=== PATIENT | male | born 1935 ===

== ENCOUNTER 2017-04-28 12:03 | Day surgery (SDC) | payer MEDICARE, OTHER ==
[~2017-04-28] VITALS: Ht 177.8 cm; Wt 137.8 kg
[~2017-04-28 12:03] MED LIST: ALLO100 PO; ASPI81CH; ASPI81EC PO; BISA5EC PO; BRIM.15SO; CEFD300 PO; CIPR500 PO; CLON.1 PO; COLC.6; ESOM20; ESOM20 PO; EZET10; FERR325 PO; FINA5 PO; FISH1000 PO; FLUSAL2505; FLUSAL5005 IH; FLUT.05NI; FURO20; FURO20 PO; HUMULIN N SQ; INSLI100I; INSLI100I SUBQ; INSN100I SUBQ; INSUL100I SUBQ; ISOMON60ER; LEVFLO500 PO; LISHYD2025; LISHYD2025 PO; LOPE2C PO; LORA1; METF500; METF500 PO; METO50ER; MULVITMINF PO; NIFE60ER PO; NITR.3SL; NITR.4SL SL; OXYB5 PO; PHENA200 PO; PIOG15; POTA10T; POTA10T PO; ROSU10TA; ROSU10TA PO; SIME80CH; SUCR1 PO; SUCR1SU; TAMS.4ER PO; TIMO.5OPSO BOTHEYES; TIOT18; TIOT18 IH; TRAV.004OP BOTHEYES; XOPENEX HFA
[2017-04-28] MEDS ORDERED: ALLO100 (12:58)
[2017-04-28] MEDS ORDERED: Azor 10-20 MG1 EACH (12:59)
[2017-04-28] MEDS ORDERED: ANORO ELLIPTA1 EACH (13:00)
[2017-04-28] MEDS ORDERED: LINZESS72 MCG (13:01)
[2017-04-28] MEDS ORDERED: METROGEL55 GM (13:03)
[2017-04-28] MEDS ORDERED: ISOD40ER (13:05)
== END 2017-04-28 14:08 | disposition home or self-care (01) ==
LOC: ORSCSDS 12:03
PROVIDERS: Ophthalmology
PROC: 08RK3JZ Replacement of Left Lens with Synthetic Substitute, Percutaneous Approach (ICD-10-PCS; principal; 2017-04-28 13:30)
DX: H25.12 Age-related nuclear cataract, left eye (principal); H21.81 Floppy iris syndrome; I10 Essential (primary) hypertension; I25.10 Atherosclerotic heart disease of native coronary artery without angina pectoris; J44.9 Chronic obstructive pulmonary disease, unspecified; E11.9 Type 2 diabetes mellitus without complications; I25.2 Old myocardial infarction; E66.01 Morbid (severe) obesity due to excess calories; Z68.41 Body mass index [BMI] 40.0-44.9, adult; Z79.4 Long term (current) use of insulin; Z79.899 Other long term (current) drug therapy
CPT/HCPCS: 82947; J2250; J7040; V2632

== ENCOUNTER 2017-05-19 10:38 | Day surgery (SDC) | payer MEDICARE, OTHER ==
[~2017-05-19] VITALS: Ht 177.8 cm; Wt 139.3 kg
[~2017-05-19 10:38] MED LIST changes: +ALLO100; +ANORO ELLIPTA1 EACH; +Azor 10-20 MG1 EACH; +ISOD40ER; +LINZESS72 MCG; +METROGEL55 GM
[2017-05-19] MEDS ORDERED: ANORO ELLIPTA1 EACH INH (11:21)
[2017-05-19] MEDS ORDERED: Calcitriol0.25 MCG PO (11:22)
[2017-05-19] MEDS ORDERED: ENTRESTO 97 MG1 EACH PO (11:23)
[2017-05-19] MEDS ORDERED: Humalog100 UNIT/3 SC (11:24)
[2017-05-19] MEDS ORDERED: LEVA.63IS INH ×2 (11:25→11:30)
[2017-05-19] MEDS ORDERED: METO2.5 PO (11:26)
[2017-05-19] MEDS ORDERED: NITR.6SL SL (11:27)
[2017-05-19] MEDS ORDERED: LEVA.63IS (11:29)
== END 2017-05-19 12:50 | disposition home or self-care (01) ==
LOC: ORSCSDS 10:38
PROVIDERS: Ophthalmology
PROC: 08RJ3JZ Replacement of Right Lens with Synthetic Substitute, Percutaneous Approach (ICD-10-PCS; principal; 2017-05-19 12:00)
DX: H25.11 Age-related nuclear cataract, right eye (principal); H21.81 Floppy iris syndrome; I50.9 Heart failure, unspecified; I25.10 Atherosclerotic heart disease of native coronary artery without angina pectoris; Z87.891 Personal history of nicotine dependence; E66.01 Morbid (severe) obesity due to excess calories; Z68.41 Body mass index [BMI] 40.0-44.9, adult; Z99.81 Dependence on supplemental oxygen; Z79.4 Long term (current) use of insulin; Z79.899 Other long term (current) drug therapy
CPT/HCPCS: 82947; J2250; J3010; V2632

== ENCOUNTER → 2018-07-14 | Outpatient (CLI) | payer MEDICARE, OTHER ==
[~2018-07-14] MED LIST changes: +ANORO ELLIPTA1 EACH INH; +Calcitriol0.25 MCG PO; +ENTRESTO 97 MG1 EACH PO; +Humalog100 UNIT/3 SC; +LEVA.63IS; +LEVA.63IS INH; +METO2.5 PO; +NITR.6SL SL
== END | disposition home or self-care (01) ==
LOC: LAB SHORT 14:01 → LAB 14:01
DX: Z08 Encounter for follow-up examination after completed treatment for malignant neoplasm (principal); Z85.51 Personal history of malignant neoplasm of bladder
CPT/HCPCS: 88108

== ENCOUNTER 2018-11-15 14:40 | Emergency (ER) | payer MEDICARE, OTHER ==
[~2018-11-15] VITALS: Ht 177.8 cm; Wt 136.1 kg
[2018-11-15] MEDS ORDERED: ALLO100 PO (15:23)
[2018-11-15] MEDS ORDERED: ANORO ELLIPTA1 EACH INH (15:23)
[2018-11-15] MEDS ORDERED: CALC.25 PO (15:24)
[2018-11-15] MEDS ORDERED: ENTRESTO 97 MG1 EACH PO (15:24)
[2018-11-15] MEDS ORDERED: DESO.05TL (15:24)
[2018-11-15] MEDS ORDERED: NEBI10 PO (15:24)
[2018-11-15] MEDS ORDERED: FINA5 PO (15:25)
[2018-11-15] MEDS ORDERED: ESOMEPRAZOLE MA40 MG PO (15:25)
[2018-11-15] MEDS ORDERED: Flonase 0.05% N16 GM PO (15:25)
[2018-11-15] MEDS ORDERED: Lasix80 MG PO (15:26)
[2018-11-15] MEDS ORDERED: Humalog100 UNIT/1 (15:26)
[2018-11-15] MEDS ORDERED: Isosorbide Mono60 MG PO (15:27)
[2018-11-15] MEDS ORDERED: LORA1 PO (15:27)
[2018-11-15] MEDS ORDERED: LEVA.63IS ×2 (15:27→15:28)
[2018-11-15] MEDS ORDERED: LINZESS145 MCG PO (15:27)
[2018-11-15] MEDS ORDERED: SUCR1 (15:28)
[2018-11-15] MEDS ORDERED: METROGEL55 GM (15:28)
[2018-11-15] MEDS ORDERED: Flomax0.4 MG PO (15:28)
[2018-11-15] MEDS ORDERED: ROSU10TA PO (15:28)
[2018-11-15] MEDS ORDERED: Aspir 8181 MG PO (15:29)
[2018-11-15 15:38] LABS: BASOPHILS ABSOLUTE AUTO 0.04 K/mm3 (0.00-0.23); BASOPHILS PERCENT AUTO 0 % (0-2); EOSINOPHILS PERCENT AUTO 1 % (0-6); Hematocrit 32.3 % (37.0-53.0); Hemoglobin 10.5 g/dL (13.5-17.5); IMMATURE GRAN PERCENT AUTO 1 % (0-1); LYMPHOCYTES ABSOLUTE AUTO 1.27 K/mm3 (0.84-5.20); LYMPHOCYTES PERCENT AUTO 9 % (21-46); MONOCYTES ABSOLUTE AUTO 0.97 K/mm3 (0.16-1.47); MONOCYTES PERCENT AUTO 7 % (4-13); Mean Corpuscular HGB 32.2 pg (26.0-34.0); Mean Corpuscular HGB Conc 32.5 g/dL (31.5-36.5); Mean Corpuscular Volume 99 fL (80-100); Mean Platelet Volume 10.5 fL (9.1-12.4); NEUTROPHILS ABSOLUTE AUTO 12.15 K/mm3 (1.96-9.15); NEUTROPHILS PERCENT AUTO 82 % (41-73); Platelet Count 249 K/mm3 (150-400); RDW Coefficient Variation 14.8 % (11.7-14.2); RDW Standard Deviation 53.9 fL (35.1-46.3); Red Blood Cell Count 3.26 M/mm3 (4.30-5.90); White Blood Cell Count 14.73 K/mm3 (4.00-11.30)
[2018-11-15 16:00] LABS: Albumin, Blood 2.3 g/dL (3.4-5.0); Albumin/Globulin Ratio 0.6 (0.8-1.8); Bilirubin, Total 0.2 mg/dL (0.1-1.0); Bun/Creatinine Ratio 30.4 (12.0-20.0); Calcium, Blood 8.1 mg/dL (8.5-10.1); Creatinine, Blood 2.47 mg/dL (0.60-1.20); Globulin, Blood 3.8 g/dL (2.2-4.0); Potassium, Blood 3.1 mmol/L (3.5-5.5); Total Protein, Blood 6.1 g/dL (6.4-8.2)
[2018-11-15 16:54] LABS: Magnesium, Blood 1.8 mg/dL (1.6-2.4); Phosphorus, Blood 3.8 mg/dL (2.5-4.9)
[2018-11-15 19:54] LABS: Campylobacter Sp Not Detected (NOT DETECT); Cryptosporidium Not Detected (NOT DETECT); E. Coli O157 Not Detected (NOT DETECT); Enteroaggregative E. coli-EAEC Not Detected (NOT DETECT); Enteropathogenic E. coli-EPEC Not Detected (NOT DETECT); Enterotoxigenic E. coli-ETEC Not Detected (NOT DETECT); Plesiomonas Shigelloides Not Detected (NOT DETECT); Salmonella Sp Not Detected (NOT DETECT); Shiga Toxin-prod E. coli-STEC Not Detected (NOT DETECT); Shigella/Enteroin E. coli-EIEC Not Detected (NOT DETECT); Vibrio Cholerae Not Detected (NOT DETECT); Vibrio Sp Not Detected (NOT DETECT); Yersinia Enterocolitica Not Detected (NOT DETECT)
[2018-11-15 19:55] LABS: Adenovirus F 40/41 Not Detected (NOT DETECT); Astrovirus Not Detected (NOT DETECT); Cyclospora Cayetanensis Not Detected (NOT DETECT); Entamoeba Histolytica Not Detected (NOT DETECT); Giardia Lamblia Not Detected (NOT DETECT); Norovirus GI/GII Not Detected (NOT DETECT); Rotavirus A Not Detected (NOT DETECT); Sapovirus Not Detected (NOT DETECT)
== END 2018-11-15 21:11 | disposition home or self-care (01) ==
LOC: ER 14:40
PROVIDERS: Emergency Medicine
DX: A04.72 Enterocolitis due to Clostridium difficile, not specified as recurrent (principal); J44.9 Chronic obstructive pulmonary disease, unspecified; E87.6 Hypokalemia; Z88.8 Allergy status to other drugs, medicaments and biological substances; Z91.040 Latex allergy status; Z88.1 Allergy status to other antibiotic agents; Z79.899 Other long term (current) drug therapy; Z79.4 Long term (current) use of insulin; Z79.82 Long term (current) use of aspirin; I10 Essential (primary) hypertension; E11.9 Type 2 diabetes mellitus without complications; Z87.891 Personal history of nicotine dependence
CPT/HCPCS: 0097U; 36415; 80053; 83690; 83735; 84100; 85025; 87324; 96360; 96361; 99284-25; J7120

== ENCOUNTER 2018-12-04 11:50 | Inpatient (IN) | payer MEDICARE, OTHER ==
[~2018-12-04] VITALS: Ht 177.8 cm; Wt 137.7 kg
[~2018-12-04 11:50] MED LIST changes: +Aspir 8181 MG PO; +CALC.25 PO; +DESO.05TL; +ESOMEPRAZOLE MA40 MG PO; +Flomax0.4 MG PO; +Flonase 0.05% N16 GM PO; +Humalog100 UNIT/1; +Isosorbide Mono60 MG PO; +LINZESS145 MCG PO; +LORA1 PO; +Lasix80 MG PO; +NEBI10 PO; +SUCR1
[2018-12-04 12:44] LABS: BASOPHILS ABSOLUTE AUTO 0.06 K/mm3 (0.00-0.23); BASOPHILS PERCENT AUTO 1 % (0-2); EOSINOPHILS ABSOLUTE AUTO 0.15 K/mm3 (0.00-0.68); EOSINOPHILS PERCENT AUTO 2 % (0-6); Hematocrit 33.4 % (37.0-53.0); Hemoglobin 10.2 g/dL (13.5-17.5); IMMATURE GRAN ABSOLUTE AUTO 0.05 K/mm3 (0.00-0.10); IMMATURE GRAN PERCENT AUTO 1 % (0-1); LYMPHOCYTES PERCENT AUTO 15 % (21-46); MONOCYTES PERCENT AUTO 7 % (4-13); Mean Corpuscular HGB 32.1 pg (26.0-34.0); Mean Corpuscular HGB Conc 30.5 g/dL (31.5-36.5); Mean Corpuscular Volume 105 fL (80-100); Mean Platelet Volume 9.7 fL (9.1-12.4); NEUTROPHILS ABSOLUTE AUTO 7.78 K/mm3 (1.96-9.15); NEUTROPHILS PERCENT AUTO 76 % (41-73); Platelet Count 265 K/mm3 (150-400); RDW Coefficient Variation 14.5 % (11.7-14.2); RDW Standard Deviation 56.7 fL (35.1-46.3); Red Blood Cell Count 3.18 M/mm3 (4.30-5.90); White Blood Cell Count 10.24 K/mm3 (4.00-11.30)
[2018-12-04 13:02] LABS: Albumin, Blood 2.7 g/dL (3.4-5.0); Albumin/Globulin Ratio 0.6 (0.8-1.8); Bilirubin, Total 0.3 mg/dL (0.1-1.0); Bun/Creatinine Ratio 20.6 (12.0-20.0); Calcium, Blood 8.4 mg/dL (8.5-10.1); Creatinine, Blood 1.7 mg/dL (0.60-1.20); Globulin, Blood 4.5 g/dL (2.2-4.0); Potassium, Blood 3.6 mmol/L (3.5-5.5); Total Protein, Blood 7.2 g/dL (6.4-8.2); Troponin I 0.017 ng/mL (0.000-0.040)
[2018-12-04] MEDS ORDERED: METO2.5 PO (14:38)
[2018-12-04] MEDS ORDERED: QVAR REDIHALE10.6 GM INH (14:47)
--- NOTE | 2018-12-04 18:48 | NUR ---
PT TO ICU FROM THE [facility] [employer] [facility] @ 1845. PT ALERT AND ORIENTED, MONITOR SHOWS NSR WITH BBB AT RATE OF 66, BP 127/52, PT STS CHEST PRESSURE OF /10 COMPAIRED TO 10/24 UPON ADMISSION. RAC IV SL, FLUSHED WITH 10NS, PATENT AND INTACT. TR BAND TO R RADIAL, SCANT AMOUNT OF BLOOD AROUND INSERTION SITE, SOME BRUISING, SITE IS SOFT AND NON-TENDER.
[2018-12-04] MEDS ORDERED: Humulin N100 UNIT/1 (19:00)
--- NOTE | 2018-12-04 19:00 | NUR ---
STENT CARD GIVEN TO
[2018-12-04] MEDS ORDERED: NITR.4SL SL (19:01)
[2018-12-04] MEDS ORDERED: Travatan Z5 ML (19:02)
[2018-12-04] MEDS ORDERED: CYAN500 PO (19:04)
[2018-12-04] MEDS ORDERED: CENTRUM ADULTS1 EACH PO (19:05)
[2018-12-04] MEDS ORDERED: FISH OIL 1,0001 EAC2 PO (19:05)
[2018-12-04] MEDS ORDERED: GUAI600T33 PO (19:06)
--- NOTE | 2018-12-04 19:30 | NUR ---
PATIENT RESTING IN BED C/O FEELING TIRED AND VERBALIZED GENERALIZED ACHING TO "EVERY WHERE" TR BAND IN PLACE TO RIGHT WRIST. SMALL AMT OF BRUISING SEEN UNDER BAND, AREA AROUND BAND SOFT AND PINK NO SWELLING OR OOZING SEEN GOOD CAP REFILL TO FINGERS. ARM BOARD IN PLACE TO HELP REMIND PATIENT TO NOT USE THAT WRIST. PATIENT HAVING AUDIBLE WHEEZING WITH SLIGHT ACTIVITY. PATTERNMAKER METAL BENCH SHOWING PACED RHYTHM. DOCTOR CLIDE IN TO SEE PATIENT, SEE NEW ORDERS. PATIENTS AT BEDSIDE PROVIDING GOOD SUPPORT. CLEAR OP-SITE DRESSING TO RIGHT ELBOW COVERING SKIN TEAR, DUE TO RISK OF FURTHER TEARING OF SKIN DRESSING WILL REMAIN IN PLACE.
--- NOTE | 2018-12-04 20:15 | NUR ---
TR BAND LOWERING PRESSURE ON TR BAND SMALL AMT OF OOZING. SITE AROUND TR BAND SOFT, NO SWELLING SEEN. WILL CONTINUE TO ATTEMPT TO LOWER PRESSURE AND REMOVE TR BAND
[2018-12-04] MEDS ORDERED: DULCOLAX STOOL100 MG PO (22:07)
--- NOTE | 2018-12-05 00:16 | NUR ---
PATIENT C/O FEELING LIKE HE CAN'T GET ENOUGH AIR AND HAVING DISCOMFORT TO MID UPPER ABD. BIPAP IN PLACE WITH 8L BLEED IN, MONITOR SHOWING BIOX 100%. MONITOR CONTINUES TO SHOW 100% PACED RATE 60'S. ATIVAN GIVEN TO HELP PATIENT RELAX. PATIENTS AT BEDSIDE. RIGHT WRIST SOFT NO FURTHER OOZING, ARM BOARD REMAINS IN PLACE.
--- NOTE | 2018-12-05 01:05 | NUR ---
PATIENT SLEEPING WITH BIPAP IN PLACE, AWAKENS TO SLIGHT STIMULI, VERBALIZED FEELING BETTER, FALLING BACK TO SLEEP WHEN UNDISTURBED. RIGHT WRIST SOFT NO SWELLING OR OOZING SEEN.
[2018-12-05 04:01] LABS: BASOPHILS ABSOLUTE AUTO 0.04 K/mm3 (0.00-0.23); BASOPHILS PERCENT AUTO 0 % (0-2); EOSINOPHILS ABSOLUTE AUTO 0.08 K/mm3 (0.00-0.68); EOSINOPHILS PERCENT AUTO 1 % (0-6); Hematocrit 29.8 % (37.0-53.0); Hemoglobin 9.2 g/dL (13.5-17.5); IMMATURE GRAN ABSOLUTE AUTO 0.04 K/mm3 (0.00-0.10); IMMATURE GRAN PERCENT AUTO 0 % (0-1); LYMPHOCYTES ABSOLUTE AUTO 0.98 K/mm3 (0.84-5.20); LYMPHOCYTES PERCENT AUTO 10 % (21-46); MONOCYTES ABSOLUTE AUTO 0.66 K/mm3 (0.16-1.47); MONOCYTES PERCENT AUTO 7 % (4-13); Mean Corpuscular HGB 31.2 pg (26.0-34.0); Mean Corpuscular HGB Conc 30.9 g/dL (31.5-36.5); Mean Corpuscular Volume 101 fL (80-100); Mean Platelet Volume 9.6 fL (9.1-12.4); NEUTROPHILS ABSOLUTE AUTO 7.82 K/mm3 (1.96-9.15); NEUTROPHILS PERCENT AUTO 81 % (41-73); Platelet Count 236 K/mm3 (150-400); RDW Coefficient Variation 14.6 % (11.7-14.2); RDW Standard Deviation 53.6 fL (35.1-46.3); Red Blood Cell Count 2.95 M/mm3 (4.30-5.90); White Blood Cell Count 9.62 K/mm3 (4.00-11.30)
[2018-12-05 04:18] LABS: Bun/Creatinine Ratio 19.9 (12.0-20.0); Creatinine, Blood 1.81 mg/dL (0.60-1.20); Magnesium, Blood 1.4 mg/dL (1.6-2.4); Potassium, Blood 3.6 mmol/L (3.5-5.5)
--- NOTE | 2018-12-05 05:58 | NUR ---
SUMMARY PATIENT SLEEPING OFF AND ON T/O NIGHT WITH BIPAP IN PLACE. NO FURTHER C/O MID UPPER ABD PAIN AFTER ATIVAN PO GIVEN. PATIENT VERBALIZED FEELING BETTER THIS AM. PATIENT CONTINUES TO BECOME SOB WITH AUDIBLE WHEEZES WITH EXERTION, RECOVERING QUICKLY AT REST. RIGHT WRIST SITE REMAINS SOFT WITH DRESSING CD&I, NO FURTHER OOZING SEEN. PATIENT REMAINS IN PACED RHYTHM WITH OCCASIONAL PVC. SEE RHYTHM STRIP SHEET
--- NOTE | 2018-12-05 07:30 | NUR ---
SHIFT ASSESSMENT PT IS UP TO BSC AT THIS TIME. HE APPEARS TO BE IN GOOD SPIRITS. IS IN CHAIR AT BEDSIDE. PT STATES HE FEELS PRETTY GOOD THIS AM. JUST TIRED AND A LITTLE SOB. HE DOES NOT APPEAR TO BE IN ANY RESP DISTRESS WITH REST, BUT UPON TRANSFERING HIM BACK TO CHAIR WITH ASSISTANCE FROM A AUTOMATIC GRINDING MACHINE OPERATOR PT DID BECOME SOB AND HAVE AUDIABLE WHEEZES. RECOVERY IS QUICK HOWEVER. PT STATES HE DOES NOT HAVE ANY PAIN TO SPEAK OF AT THIS TIME. WILL CON'T TO MONITOR AND TREAT INDICATED. PT DOES HAVE STABLE VITALS AT THIS TIME. HRR IS REGULAR WITH 100 PACING AT TIMES, NSR AND ALSO PVC'S. NO CHEST PAIN COMPLAINTS. PT HAS TR BAND TO RIGHT WRIST. OPSITE IN PLACE WITH NO BLOOD ON DRESSING. SITE IS SOFT AND NON TENDER. PT CON'T TO BE FOLLOWING PROTOCOL TO NOT USE RIGHT ARM. PT HAS IV FLUIDS RUNNING ORDERED. WILL CON'T TO MONITOR PT T/O SHIFT AND KEEP SAFE. CALL LIGHT IN REACH AND REMAINS IN ROOM.
--- NOTE | 2018-12-05 08:30 | NUR ---
DR FRANCOIS / DR JOSEPH FRANCOIS WAS CALLED REGARDING PT'S INSULIN REGIMEN AND LASIX ORDER. HE ORDERED TO HAVE HIS INSULIN GIVEN ORDERED. BUT TO CHANGE PT'S DIET TO AN ADA DIET WITH CARB COUNTING AND ADMINISTER INSULIN ORDERED. HE WILL DISCUSS LATER WITH FAMILY INSULIN ORDERS. DISCUSSED WITH HIM PT'S LASIX DOSE AT HOME AND YET NOT ORDERED HERE. TECHNICAL MARKETING CONSULTANT RN ATTEMPTED TO CONTACT DR RUIZ REGARING LASIX ORDERES. DR FRANCOIS ORDERED TO GIVE PT LASIX IV NOW. DR RUIZ THEN CALLED UNIT AND ORDERED TO HAVE THE LASIX STOPPED AND TO GIVE PT A ONE TIME DOSE OF BUMEX GIVEN IV. WILL CON'T TO MONITOR PT'S RESPONSIVNESS TO BUMEX AND REPORT TO .
--- NOTE | 2018-12-05 10:15 | NUR ---
echocardiogram completed
--- NOTE | 2018-12-05 11:30 | NUR ---
UPDATE ASSESSMENT PT CON'T TO BE STABLE WITH NO PAIN COMPLAINTS. HE WAS ABLE TO GET UP TO BSC AND HAVE A LARGE SOFT BM. STATES HE FEELS MUCH BETTER. PT AND OT HAVE BOTH WORKED WITH PT THIS AM. HE WAS ABLE TO EAT SOME OF HIS BREAKFAST WITH NO ISSUES. VITALS CON'T TO BE STABLE. PT CON'T TO HAVE NRS WITH SOME PERIODS OF PACING. CON'T TO BE AT BEDSIDE.
--- NOTE | 2018-12-05 18:06 | NUR ---
1500-ASSUMED CARE OF PT. PT IS ALERT AND ORIENTED. PT IS SITTING ON THE RECLINER CHAIR AT THIS TIME. PT IS NOW PCU STATUS. 1700-PT SEEN BY DR. LAWRENCE. DR. LAWRENCE WAS NOTIFIED REGARDING THE CONSULT. 1806-PT WILL BE TRANSFERED TO ROOM ICU2
--- NOTE | 2018-12-06 05:01 | NUR ---
SHIFT SUMMARY PT RESTING IN ROOM COMFORTABLY AT THIS TIME. PT HAD NO ACUTE CHANGES IN STATUS T/O SHIFT. PT REPORTS DID NOT SLEEP MUCH, OR WELL. SLEPT IN SHORT PERIODS. PT DENIED ANY CP OR SOB T/O NIGHT. RESP EVEN UNLABORED ON CPAP W/ 8L BLEED IN AND SATS >95%. PT WAS ABLE OT MOVE SELF IN BED FOR REPOSITIONING, WITH MINIMAL HELP FROM STAFF. DENIED OTHER NEEDS. ANGIO SITE ON R WRIST REMAINS C/D/I AND WNL. ARM BOARD IN PLACE AND PT WAS CAREFUL TO NOT USE R ARM T/O SHIFT. CALL LIGHT IN REACH. PT SPOUSE AT BEDSIDE AWAITING REGULATORY COORDINATOR VISIT.
[2018-12-06 05:26] LABS: Hematocrit 29.3 % (37.0-53.0)
[2018-12-06 05:45] LABS: Albumin, Blood 2.4 g/dL (3.4-5.0); Anion Gap 8 mmol/L (6-16); Blood Urea Nitrogen 46 mg/dL (8-24); Bun/Creatinine Ratio 13.6 (12.0-20.0); CO2, Blood 29 mmol/L (21-32); Chloride, Blood 97 mmol/L (98-108); Creatinine, Blood 3.39 mg/dL (0.60-1.20); Glomerular Filtration Rate 18 (60-); Glucose, Blood 93 mg/dL (70-99); Magnesium, Blood 1.5 mg/dL (1.6-2.4); Phosphorus, Blood 4.1 mg/dL (2.5-4.9); Potassium, Blood 3.5 mmol/L (3.5-5.5); Sodium, Blood 134 mmol/L (136-145)
--- NOTE | 2018-12-06 11:06 | NUR ---
BEGINNING OF SHIFT Assumed care at 0700. Bedside report received from Karen ALVARADO. Pt on CPAP at 6 LPM. SpO2 90% or greater. Pt OOB several times this AM to sit in chair or use toilet. Dyspnea with exertion, however pt maintains SpO2 90% or greater. Sinus rhythm per monitor, no pacemaker spikes noted. Flutter valve provided. Pt educated on use. Pt demonstrates appropriate use.
--- NOTE | 2018-12-06 15:31 | NUR ---
Initial Visit: Pt is alert, oriented, calm. He reports frequent shortness of breath and is wearing his home CPAP machine. He states that he does not usually wear this during the day, however, he is wearing it now related to persistent and worsening shortness of breath and feels that it helps him recover. He reports that he may need dialysis. He is unsure if it would be temporary or supervisor word processing. He states that he has anxiety related to the health changes happening in his body recently. Up until begining of November, pt was able to ambulate in his home using a walker. He had c-diff a couple weeks ago and his ability to function reduced drastically. His went and bought him a BSC and put it by their bed. He still "made a mess" that she had to frequently clean up. Pt has 2 children and she has 1. They do not have children together and the children live out of town. They have friends in town, but she reports, "they are just as old as we are and they have health issues too." , Marleny, reports that she has just had a ramp installed. He became significantly too weak to perform his own ADLs. She has "put off" procedures to break up kidney stones; she has put this off three times to care for him. Discussed current medications and care. They are very appreciative of the nurses taking care of him, as they are very attentive and caring. Pt has not been sleeping. He has anxiety. He forgot to ask for the new sleeping medication that Dr. Aguilar ordered for him last night, but plans to ask the nurse for it tonight. It is PRN Trazodone. Information and dosage discussed with pt and . Plans to check on symptoms tomorrow and requested pt to note how it makes him feel, if he is able to go to sleep and stay asleep. He verbalizes understanding and reports that he will try and monitor efficacy of medication. No other concerns at this time.
--- NOTE | 2018-12-06 17:50 | NUR ---
TRANSFER TO PCU Pt transferred to PCU 2 at 1547 via wheelchair accompanied by this RN. Report given to Milla RN. Pt transferred to new room via wheelchair. Chart, medications, and belongings transferred with patient.
--- NOTE | 2018-12-06 18:19 | NUR ---
NURSING PCU DAYSHIFT SUMMARY: Assumed care of pt at approx 1600. Arrived for ICU via w/c accompanied by RN. Xfer w/SBA to unit bed, spouse at bedside. Pt is pleasant and cooperative w/care. Able to express needs w/o difficulty. SR w/BBB, no c/o CP/pressure, BP stable. Has worn home bipap t/o majority of the afternoon w/6L bleed in, 4L NC during bipap breaks, continuous bedside O2 monitoring, breathing tx's as ordered, experience dyspnea w/minimal exertion. Pt and s/o oriented to unit. Reviewed lab results and nephrology plan w/spouse, questions answered. Pt and s/o deny any current needs or questions regarding plan of care, call light in reach, cont to monitor until rpt is given to NOC RN.
--- NOTE | 2018-12-06 19:53 | NUR ---
Assumed care Assumed care at approx 1915; pt presents lying in bed with bipap in place, SO at bedside. Pt breathing easy and unlabored on bipap but with complaint of constant SOB since hospital admission. Pt conversing appropriately, answers questions appropriately, A&O. Pt denies chest pain or pressure and VSS. Will continue to monitor.
--- NOTE | 2018-12-06 20:15 | NUR ---
CBG 83; pt states "when my sugar is in the 80's I know it because I feel bad. My vision changes." Pt aware that cbg is 83 and apple juice provided per pt request.
--- NOTE | 2018-12-07 01:22 | NUR ---
Pt with attempted void; 7 ml out. Will continue to monitor urine output and report to care team
--- NOTE | 2018-12-07 01:48 | NUR ---
Pt sleeping from 2200 until now with minimal disruptions in sleep. Pt stated at begining of shift that he "hasn't slept since admission". Trazadone PRN on eMAR and given per orders; pt sleeping improved with trazadone admission this shift. Will continue to monitor.
--- NOTE | 2018-12-07 02:10 | NUR ---
Handoff given to CHRISTIANO Ruffin who assumes care at this time.
--- NOTE | 2018-12-07 02:30 | NUR ---
ASSUMED CARE OF PT AT 0200. REPORT RECEIVED. PT PRESENTS IN BED. SLEEPING. PT USING BIPAP MASK. IS MAINTAINING > 90 PERCENT SATURATIONS WITH A 6 L/M OXYGEN BLEED-IN. PT IN NO APPARENT DISTRESS. WILL REVIEW CHART AND PLAN OF CARE FOR THIS PT.
--- NOTE | 2018-12-07 04:00 | NUR ---
PT'S VITALS STABLE THIS NIGHT. CONTINUES WITH BIPAP. TOLERATING VERY WELL. DENIES COMPLAINTS OF DYSPNEA. WILL CONTINUE TO MONITOR.
[2018-12-07 04:04] LABS: Hematocrit 26.9 % (37.0-53.0); Hemoglobin 8.3 g/dL (13.5-17.5)
[2018-12-07 04:25] LABS: Albumin, Blood 2.3 g/dL (3.4-5.0); Anion Gap 11 mmol/L (6-16); Blood Urea Nitrogen 54 mg/dL (8-24); CO2, Blood 25 mmol/L (21-32); Calcium, Blood 7.9 mg/dL (8.5-10.1); Chloride, Blood 97 mmol/L (98-108); Creatinine, Blood 4.89 mg/dL (0.60-1.20); Glomerular Filtration Rate 12 (60-); Glucose, Blood 60 mg/dL (70-99); Magnesium, Blood 1.6 mg/dL (1.6-2.4); Phosphorus, Blood 4.9 mg/dL (2.5-4.9); Potassium, Blood 3.7 mmol/L (3.5-5.5); Sodium, Blood 133 mmol/L (136-145)
--- NOTE | 2018-12-07 06:49 | NUR ---
PT'S COMES IN EARLY TO SEE PT. SHE STATES THAT SHE WANTS TO BE ABLE TO SEE MD'S WHEN THEY COME IN THIS MORNING. OF NOTE: PER LAB, PT'S BLOOD GLUCOSE WAS 60. RECHECK WITH FINGERSTICK GLUCOMETER WAS 68. PT GIVEN CUP OF JUICE TO BRING BLOOD GLUCOSE LEVEL UP. WILL PASS THIS ON DAYSHIFT NURSE. PT STATES THAT HE HAS NOT BEEN EATING MUCH OF HIS MEALS. WILL CONTINUE TO MONITOR PT, AND WILL REPORT OFF TO ONCOMING RN.
[2018-12-07 11:43] LABS: Creatinine, Blood 5.38 mg/dL (0.60-1.20)
--- NOTE | 2018-12-07 12:09 | NUR ---
NEW ORDER FROM DR LAWRENCE. (PERMACATH PLACEMENT W/DR JIMENEZ.) CONSULT CALLED BY CN. PATIENT AND SPOUSE INFORMED.
--- NOTE | 2018-12-07 16:45 | NUR ---
PATIENT RETURNED TO ROOM FROM PERMACATH PLACEMENT RCW. SITE CLEAR. DRESSING D&I. VSS. DENIES PAIN, NAUSEA. LS CLEAR, DECREASED IN BASES. ALERT, TALKING WITH AND VISITOR. CBG 87. TAKING JUICE PO W/O C/O. CONT TO MONITOR. CHICKEN AND FISH BUTCHER CONTACTED BY CN, DIALYSIS PLANNED FOR TODAY.
--- NOTE | 2018-12-07 18:12 | NUR ---
SHIFT SUMMARY PERMACATH SITE CLEAR. VERY SMALL AMOUNT OOZING ON DRESSING. NO SWELLING OR BRUISING NOTED. DR LAWRENCE IN TO SEE; PLAN FOR DIALYSIS IN AM. PATIENT W/O C/O. DECLILNED DINNER. TALKING WITH . VSS. CONT TO MONITOR.
--- NOTE | 2018-12-07 19:45 | NUR ---
Assumed care Pt presenting in bed, reading on personal tablet, at bedside. Upon arrival, pt with tremors to BUE. Pt states " I have tremors all the time but this is worse." Pt appears weak, unable to move self significantly in bed (independant at baseline), forgetful begining this shift. 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 At approx 1940 pt needs to go to BSC for BM, this RN and another RN attempt to help pt OOB to BSC. Pt substantially weak, unable to assist with movements much at all, audible wheezing began with excertion. BSC attempt aborted and bedpan placed on pt. Otherwise, VSS and no changes to oxygen demand noted thus far.
--- NOTE | 2018-12-08 02:00 | NUR ---
Mentation change: Pt remains oriented but with slight lethargy. Pt with increased forgetfulness this shift. Pt arousable to alertness.
[2018-12-08 04:06] LABS: Hematocrit 26.5 % (37.0-53.0); Hemoglobin 8.4 g/dL (13.5-17.5)
[2018-12-08 04:23] LABS: Albumin, Blood 2.4 g/dL (3.4-5.0); Anion Gap 12 mmol/L (6-16); Blood Urea Nitrogen 60 mg/dL (8-24); Bun/Creatinine Ratio 9.8 (12.0-20.0); CO2, Blood 24 mmol/L (21-32); Calcium, Blood 8.1 mg/dL (8.5-10.1); Chloride, Blood 97 mmol/L (98-108); Glomerular Filtration Rate 9 (60-); Glucose, Blood 81 mg/dL (70-99); Magnesium, Blood 1.7 mg/dL (1.6-2.4); Phosphorus, Blood 5.9 mg/dL (2.5-4.9); Potassium, Blood 4.2 mmol/L (3.5-5.5); Sodium, Blood 133 mmol/L (136-145)
--- NOTE | 2018-12-08 04:40 | NUR ---
Provider Called Dr Cross called this AM to notify of changes in mentation and lab results of creatinine 6.1 and GFR 9, Sodium 133 and HBG 8.4. Orders recieved for Head CT without contrast, neuro checks q4, 1 unit of PRBC during dialysis, and to call dialysis by 0600 if not already present.
--- NOTE | 2018-12-08 06:29 | NUR ---
PT TRANSFER TO HEAD CT SCAN
--- NOTE | 2018-12-08 06:34 | NUR ---
Shift Summary Pt with events as noted this shift. Overall, VSS, no changes in oxygen demand, changes in mentation as noted. This AM, pt more alert and conversive than previously in shift. Pt educated on renal lab results, hemodialysis, head CT, and plan of care. Pt verbalized understanding, denies questions or concerns. Edema improving this shift. at bedside at this time. At present, pt states "I feel much better than early tonight." Dr. Cross at bedside as well. New orders recieved and following per orders. Plan is for hemodialysis this morning. Will continue to monitor and provide care until handoff to day RN.
--- NOTE | 2018-12-08 09:10 | NUR ---
PT LEFT FOR DIALYSIS
--- NOTE | 2018-12-08 13:18 | NUR ---
PT RETURNS FROM DILAYSIS
--- NOTE | 2018-12-08 16:57 | NUR ---
SHIFT NOTE PT ALERT, CONFUSED THIS AM UPON SHIFT CHANGE. PT TO DIALYSIS THIS AM, WHEN HE RETURNED THIS AFTERNOON WAS LESS CONFUSED AND ANSWERING QUESTIONS MORE APPROPRIATELY. NUMEROUS FAMILY AT BEDSIDE T/O THE DAY. VSS. PT WITH INSPIRATORY AND EXPIRATORY WHEEZES NOTED T/O THAT WERE NOT LARGELY IMPROIVED WITH BREATHING TREATMENTS T/O THE DAY. D/C PLANNERS HAVE BEEN WORKING WITH PT T/O THE DAY.
--- NOTE | 2018-12-08 22:08 | NUR ---
ASSUMED CARE OF PATIENT AT APPROXIMATELY 1905 FROM IONA Ordaz RN. PATIENT ALERT AND ORIENTED X2; FORGETUL. PATIENT REPORTS FEELING WEAK AND WASNT FEELING WELL EARLIER TODAY BUT REPORTS FEELS BETTER AFTER DAILYSIS. PATIENT'S WAS BEDSIDE AND REPORTS PATIENT CAN BECOME CONFUSED FOR A DAY WHEN BLOOD SUGAR GOES BELOW 100. PATIENT DENIES PAIN, NUMBNESS, TINGLING, DIZZINESS AND NAUSEA. REPORTS POOR APPETITE FOR DINNER TODAY. USES URINAL IN BED WITH ASSIST; BM IN BEDPAN. PATIENT HAVING MUCUSY BM; REPORT HAD SOME LAST NIGHT TOO; SOME BROWN BM'S TODAY. NSR W/ BBB; OXYGEN SATURATION ABOVE 90% ON CPAP. PATIENT TURNED FREQUENTLY. PIV S/L. PATIENT CURRENTLY RESTING IN BED; CALL LIGHT IN REACH; BED IN LOWEST POSISTION; BED ALARM ON; WILL CONTINUE TO MONITOR AND ASSESS UNTIL END OF SHIFT.
[2018-12-09 04:32] LABS: Eosinophils-Raw #,Urine 0
[2018-12-09 05:09] LABS: HBSAG SCREEN Negative (Negative); HEP A AB, IGM Negative (Negative); HEP B CORE AB, IGM Negative (Negative); HEP C VIRUS AB 0.2 (0.0-0.9)
[2018-12-09 05:10] LABS: Hematocrit 29.5 % (37.0-53.0); Hemoglobin 9.3 g/dL (13.5-17.5)
[2018-12-09 05:36] LABS: Albumin, Blood 2.4 g/dL (3.4-5.0); Anion Gap 9 mmol/L (6-16); Blood Urea Nitrogen 38 mg/dL (8-24); Bun/Creatinine Ratio 8.5 (12.0-20.0); CO2, Blood 30 mmol/L (21-32); Calcium, Blood 8.1 mg/dL (8.5-10.1); Chloride, Blood 94 mmol/L (98-108); Creatinine, Blood 4.45 mg/dL (0.60-1.20); Glomerular Filtration Rate 13 (60-); Glucose, Blood 143 mg/dL (70-99); Magnesium, Blood 1.8 mg/dL (1.6-2.4); Phosphorus, Blood 4.2 mg/dL (2.5-4.9); Potassium, Blood 3.6 mmol/L (3.5-5.5); Sodium, Blood 133 mmol/L (136-145)
--- NOTE | 2018-12-09 06:56 | NUR ---
PATIENT SLEPT ABOUT NINE HOURS; ANOTHER EPISODE OF CLEAR MUCUS BM; URINE SENT OFF FOR LAB. VSS. NO OTHER ACUTE CHANGES TO REPORT. WILL CONTINUE TO MONITOR AND ASSESS UNTIL END OF SHIFT.
--- NOTE | 2018-12-09 15:58 | NUR ---
REPORT CALLED TO MANISHA ALVARADO ON MEDICAL FLOOR THAT WILL ASSUME PT CARE
--- NOTE | 2018-12-09 18:21 | NUR ---
PT ARRIVED TO UNIT VIA BED. PT AND FAMILY ORIENTATED TO ROOM. EDEMA OF BLE. NOTED WHEEZES UPON ACUSTULATION. PT HAS SCATTERED BRUSING ON UPPER EXTREMITIES. PT A/O, COOPERATIVE AND PLESANT.
--- NOTE | 2018-12-09 22:37 | NUR ---
PT HAVING CLEAR LIQUID GEL STOOL. ONE EPISODE SO FAR THIS EVENING. PT AND FAMILY VERY CONCERNED, STATING THAT PT HAS NOT HAD A NORMAL BOWEL MOVEMENT FOR 4 DAYS. COLLECTED SPECIMEN AND SENT TO LAB FOR POTENTIAL FURTHER TESTING. STOOL TESTED TODAY FOR CDIFF, COMING BACK NEGATIVE. SPOKE WITH DR. LEMA WHO DID NOT WANT TO DO ANY FURTHER TESTING THIS EVENING. ORDERS TO MONITOR AND HAVE DAY SHIFT HOSPITALIST REEVALUATE.
[2018-12-10 04:39] LABS: Hematocrit 29.4 % (37.0-53.0); Hemoglobin 9.1 g/dL (13.5-17.5)
[2018-12-10 04:59] LABS: Albumin, Blood 2.3 g/dL (3.4-5.0); Anion Gap 8 mmol/L (6-16); Blood Urea Nitrogen 28 mg/dL (8-24); Bun/Creatinine Ratio 8.8 (12.0-20.0); CO2, Blood 31 mmol/L (21-32); Calcium, Blood 7.9 mg/dL (8.5-10.1); Chloride, Blood 96 mmol/L (98-108); Creatinine, Blood 3.18 mg/dL (0.60-1.20); Glomerular Filtration Rate 20 (60-); Glucose, Blood 115 mg/dL (70-99); Magnesium, Blood 1.6 mg/dL (1.6-2.4); Phosphorus, Blood 3.2 mg/dL (2.5-4.9); Potassium, Blood 3.4 mmol/L (3.5-5.5); Sodium, Blood 135 mmol/L (136-145)
--- NOTE | 2018-12-10 04:59 | NUR ---
SHIFT SUMMARY PT PLEASANT AND COOPERATIVE. FAMILY AT BEDSIDE FOR BEGINNING OF SHIFT. PT HAD MULTIPLE EPISODES THIS EVENING OF CLEAR MUCUS STOOL. ONE OF THESE EPISODES HAD A SMALL AMOUNT OF FORMED BROWN STOOL AT THE END OF IT. SPOKE WITH MD ABOUT MUCUS STOOLS WITH NO FURTHER ORDERS AT THIS TIME. SEE PREVIOUS NOTE. PT REPORTS THAT HE FEELS HIS STRENGTH IMPROVING BUT CONTINUES TO FEEL WEAK. UP TWO PERSON ASSIST WITH FWW AND GAIT BELT TO BS. PERMACATH TO R CHEST WALL, NO REDNESS OR BLOOD NOTED TO SITE. PT BECOMES SOB WITH AUDIBLE WHEEZING WHEN EXERTING HIMSELF. PT ON 3 L O2 NC WHEN AWAKE. BIPAP WITH 7-8 L BLEEDIN WHEN SLEEPING. THIS IS PT'S BASELINE. TELEMETRY IN PLACE. SR W/ BBB AT 63 PER U.S. SENATOR. NO OTHER ACUTE CHANGES THIS SHIFT. WILL CONTINUE TO MONITOR.
--- NOTE | 2018-12-10 17:23 | NUR ---
PT A/O, PLESANT AND COOPERATIVE. PT DENIES CHEST PAIN THIS SHIFT. PT RECIEVED DIALYSIS THIS MORNING. PT BEGAN TO HAVE LARGE VOLUME SOFT STOOLS, THIS CHANGED FROM PREVIOUS SMALL VOLUME CLEAR STOOL, PT USING BEDSIDE CAMMOE. PT AWAITING X-RAY OF THE ABDOMEN. PT EATING AND DRINKING WELL.
--- NOTE | 2018-12-11 05:48 | NUR ---
SHIFT SUMMARY PT HAD DIFFICULT NIGHT. DID NOT TOLERATE THE SLEEP STUDY VERY WELL. BECOMING HYPERFOCUSED ON HOW MUCH OXYGEN HE WAS ON AND WHAT HIS O2 SATS WERE. PT FREQUENTLY FELT LIKE HE WASN'T GETTING ENOUGH OXYGEN. PT AT ONE POINT ONLY ON 1 L BLEEDIN FOR BIPAP. HOWEVER TOLERATED 3 L BETTER AND REMAINED ON THAT FOR MUCH OF THE NIGHT. RESPIRATORY THERAPY IN MULTIPLE TIMES TO DISCUSS STUDY WITH PT. PT FINALLY CALMED DOWN AND WAS ABLE TO SLEEP VERY LATE IN THE SHIFT. PT DID HAVE AN EPISODE OF ANGINA THIS EVENING. THE EPISODE WAS SHORT ONLY LASTING A FEW MINUTES, SHARP AT FIRST AND THEN DULL. EKG DONE SHOWING NO CHANGES. VITAL SIGNS STABLE DURING. NOTIFIED DR. MCCONNELL. NEW ORDERS FOR SERIAL TROPONINS, TO PLACE PT BACK ON TELEMETRY AND ONE DOSE OF SL NITRO. TROPONIN CAME BACK ELEVATED AT 0.277 WITH FIRST DRAW. REDRAW DUE AT 0800. NOTIFIED DR. MCCONNELL OF TROPONIN LEVEL. NO NEW ORDERS. TELEMETRY READING SR W/ BBB IN THE 70'S, UNCHANGED FROM WHEN TELEMETRY WAS ON BEFORE. NO BOWEL MOVEMENTS THIS EVENING. NO COMPLAINTS OF PAIN. PERMACATH SITE TO R CHEST WALL INTACT AND NO REDNESS OR BLEEDING NOTED. PT SLEEPING WELL AT THIS TIME WITH BIPAP ON. WILL CONTINUE TO MONITOR AND REPORT TO DAY RN.
[2018-12-11 08:04] LABS: Hematocrit 31.3 % (37.0-53.0); Hemoglobin 9.4 g/dL (13.5-17.5)
[2018-12-11 08:36] LABS: Albumin, Blood 2.5 g/dL (3.4-5.0); Anion Gap 7 mmol/L (6-16); Blood Urea Nitrogen 26 mg/dL (8-24); Bun/Creatinine Ratio 9.9 (12.0-20.0); CO2, Blood 31 mmol/L (21-32); Calcium, Blood 8.6 mg/dL (8.5-10.1); Chloride, Blood 101 mmol/L (98-108); Creatinine, Blood 2.63 mg/dL (0.60-1.20); Glomerular Filtration Rate 25 (60-); Glucose, Blood 127 mg/dL (70-99); Magnesium, Blood 1.5 mg/dL (1.6-2.4); Phosphorus, Blood 2.7 mg/dL (2.5-4.9); Potassium, Blood 3.7 mmol/L (3.5-5.5); Sodium, Blood 139 mmol/L (136-145)
--- NOTE | 2018-12-11 09:59 | NUR ---
CALLED [facility] ABOUT PATIENT SCHEDULED OUT PATIENT TOMORROW FOR PACEMAKER CHECK REMOTELY. WILL SEE IF EVERRAJEEN WANTS IT KEPT OUT PATIENT.
--- NOTE | 2018-12-11 11:06 | NUR ---
ROMINA MARMOLEJO AWARE TROP TAKEN LAST NIGHT AND THIS MORNING W/TRENDING DOWN. IN TO SEE. NOTIFIED.
--- NOTE | 2018-12-11 11:57 | NUR ---
PACEMAKER CHECKED PER HOSPITALIST ORDER, APPEARS WORKING NORMALLY. REPORT IN [employer] ROUTED TO DR PURVIS, INITIAL/FINAL PRINT OUT LEFT ON FRONT OF CHART.
--- NOTE | 2018-12-11 15:58 | NUR ---
ALERT. ORIENTED. COOPERATIVE. PLEASANT. ON OXYGEN. ONE PERSON ASSIST IN ROOM. PERMACATH RT C.W. NO DIALYSIS TODAY. TELE ON SR PACED. HAD PACER CHECKED TODAY IN ROOM. IV PATENT. EDEMA SCROTUM AND BLE. AWARE OF TROPONIN AND WILL TALK TO . REVIEW WHY GETTING HEPARIN SHOT AND ARANESP. RELATIVES IN ROOM MOST OF DAY. NO ACUTE CHANGES. POSSIBLE DIALYSIS TOMORROW. WCTM.
--- NOTE | 2018-12-11 17:24 | NUR ---
PATIENTS SENT DOWN TO E.R. BY THIS RN SHE WAS HAVING TROUBLE FORMING WORDS. TAKEN DOWN AT ABOUT 1650 BY STEP DAUGHTER. PATIENT C/O INCREASE ANXIETY DUE TO THIS NEW DEVELOPMENT AND GIVEN ATIVAN WHICH PATIENT HAS TAKEN BEFORE. WCISABEL.
[2018-12-12 04:43] LABS: BASOPHILS ABSOLUTE AUTO 0.07 K/mm3 (0.00-0.23); BASOPHILS PERCENT AUTO 1 % (0-2); EOSINOPHILS ABSOLUTE AUTO 0.37 K/mm3 (0.00-0.68); EOSINOPHILS PERCENT AUTO 4 % (0-6); Hematocrit 30.3 % (37.0-53.0); Hemoglobin 9.1 g/dL (13.5-17.5); IMMATURE GRAN ABSOLUTE AUTO 0.11 K/mm3 (0.00-0.10); IMMATURE GRAN PERCENT AUTO 1 % (0-1); LYMPHOCYTES ABSOLUTE AUTO 1.21 K/mm3 (0.84-5.20); LYMPHOCYTES PERCENT AUTO 13 % (21-46); MONOCYTES ABSOLUTE AUTO 0.87 K/mm3 (0.16-1.47); MONOCYTES PERCENT AUTO 10 % (4-13); Mean Corpuscular HGB 31.5 pg (26.0-34.0); Mean Platelet Volume 9.9 fL (9.1-12.4); NEUTROPHILS ABSOLUTE AUTO 6.53 K/mm3 (1.96-9.15); NEUTROPHILS PERCENT AUTO 71 % (41-73); Platelet Count 312 K/mm3 (150-400); RDW Coefficient Variation 15.2 % (11.7-14.2); RDW Standard Deviation 58.4 fL (35.1-46.3); Red Blood Cell Count 2.89 M/mm3 (4.30-5.90); White Blood Cell Count 9.16 K/mm3 (4.00-11.30)
[2018-12-12 04:44] LABS: Mean Corpuscular Volume 105 fL (80-100)
--- NOTE | 2018-12-12 04:49 | NUR ---
SHIFT SUMMARY- NO ACUTE EVENTS OVERNIGHT. PT. A&O, PLEASANT AND COOPERATIVE WITH CARE. RESTED COMFORTABLY T/O THE NIGHT, NO APPARENT DISTRESS NOTED. DENIED ANY PAIN OR DISCOMFORT T/O THE SHIFT. SCHEDULED MEDS GIVEN. BIPAP MASK ON, PT. TOLERATING WELL. DAUGHTER AT THE BEDSIDE EARLIER IN THE EVENING ASSISTING WITH HIS CARE. PERMACATH TO THE RT. CHEST WALL C/D/I. PT. SCHEDULED FOR HEMODIALYSIS TODAY. CALL LIGHT WITHIN REACH AND SIDE RAILS UP X2. WILL CONT TO MONITOR.
[2018-12-12 05:00] LABS: Albumin, Blood 2.4 g/dL (3.4-5.0); Anion Gap 8 mmol/L (6-16); Blood Urea Nitrogen 34 mg/dL (8-24); Bun/Creatinine Ratio 13.4 (12.0-20.0); CO2, Blood 31 mmol/L (21-32); Calcium, Blood 8.5 mg/dL (8.5-10.1); Chloride, Blood 99 mmol/L (98-108); Creatinine, Blood 2.54 mg/dL (0.60-1.20); Glomerular Filtration Rate 26 (60-); Glucose, Blood 138 mg/dL (70-99); Phosphorus, Blood 2.4 mg/dL (2.5-4.9); Potassium, Blood 3.7 mmol/L (3.5-5.5); Sodium, Blood 138 mmol/L (136-145)
--- NOTE | 2018-12-12 12:53 | NUR ---
PT BACK TO HIS ROOM 1240. AOX4 AND NO DISTRESS NOTED.PT EATING HIS LUNCH.
--- NOTE | 2018-12-12 19:08 | NUR ---
PT AOX4 AND COOPERATIVE OF CARE. PT UP FOR MEALS AND WENT DOWN TODAY FOR DIALYSIS. PT REPORTS FEELING TIRED AFTER COMMING BACK TO ROOM, BUT DOING WELL. DENIES PAIN. PT RESTING AT THIS TIME. NO DISTRESS NOTED.
--- NOTE | 2018-12-13 04:21 | NUR ---
SHIFT SUMMARY- NO ACUTE EVENTS OVERNIGHT. PT. RESTED WELL T/O THE NIGHT WITH BIPAP MASK ON, NO APPARENT DISTRESS NOTED. PT. NOTED TO HAVE SOME WEAKNESS BUT WAS ABLE TO GET UP TO BSC W/1 ASSIST AND WALKER, HAD 2 BM'S. DENIED ANY PAIN OR DISCOMFORT T/O THE SHIFT. DC PLANNING FOR PT. TO GO TO REHAB FACILITY. CALL LIGHT WITHIN REACH AND SIDE RAILS UP X2. WILL CONT TO MONITOR.
[2018-12-13 05:13] LABS: Hematocrit 30.1 % (37.0-53.0); Hemoglobin 9.1 g/dL (13.5-17.5)
[2018-12-13 05:28] LABS: Albumin, Blood 2.4 g/dL (3.4-5.0); Anion Gap 8 mmol/L (6-16); Blood Urea Nitrogen 27 mg/dL (8-24); Bun/Creatinine Ratio 14.5 (12.0-20.0); CO2, Blood 31 mmol/L (21-32); Calcium, Blood 8.2 mg/dL (8.5-10.1); Chloride, Blood 101 mmol/L (98-108); Creatinine, Blood 1.86 mg/dL (0.60-1.20); Glomerular Filtration Rate 37 (60-); Glucose, Blood 125 mg/dL (70-99); Magnesium, Blood 1.4 mg/dL (1.6-2.4); Phosphorus, Blood 2.3 mg/dL (2.5-4.9); Potassium, Blood 3.6 mmol/L (3.5-5.5); Sodium, Blood 140 mmol/L (136-145)
[2018-12-13 12:46] LABS: Creatinine, Blood 1.94 mg/dL (0.60-1.20)
--- NOTE | 2018-12-13 18:01 | NUR ---
SHIFT SUMMARY NEW DIALYSIS PATIENT. OX4. CARDIAC STENTS PLACED 12/04. HX OF COPD, DM, HTN. 1 PERSON MAX ASSIST TO BSC. CONTINENT. USES BED MONZON AND URINAL WITH ASSISTANCE. 2L NC AT HOME AND BIPAP AT NIGHT. PLEASANT. LIVES AT HOME WITH SPOUSE. PLAN TO DISCHARGE TO REHAB TOMORROW IF DIARRHEA IMPROVES (CDIFF NEGATIVE).
--- NOTE | 2018-12-13 22:08 | NUR ---
PER SENIOR IT SPECIALIST GIFTY, PT WAS IN AFIB FROM 2049 TO 2114. PT CONVERTED BACK TO NSR. ASYMPTOMATIC. CURRENTLY NSR @ 71 BPM. THIS HAS NOT OCCURED SINCE ADMISSION. AWARE.
[2018-12-14 04:45] LABS: Hematocrit 30.6 % (37.0-53.0); Hemoglobin 9.4 g/dL (13.5-17.5)
[2018-12-14 05:02] LABS: Albumin, Blood 2.5 g/dL (3.4-5.0); Anion Gap 6 mmol/L (6-16); Blood Urea Nitrogen 21 mg/dL (8-24); Bun/Creatinine Ratio 11.6 (12.0-20.0); CO2, Blood 33 mmol/L (21-32); Calcium, Blood 8.2 mg/dL (8.5-10.1); Chloride, Blood 96 mmol/L (98-108); Creatinine, Blood 1.81 mg/dL (0.60-1.20); Glomerular Filtration Rate 38 (60-); Glucose, Blood 168 mg/dL (70-99); Magnesium, Blood 1.5 mg/dL (1.6-2.4); Phosphorus, Blood 2.3 mg/dL (2.5-4.9); Potassium, Blood 3.4 mmol/L (3.5-5.5); Sodium, Blood 135 mmol/L (136-145)
--- NOTE | 2018-12-14 06:02 | NUR ---
SHIFT SUMMARY PT CONTINUES TO HAVE DIARRHEA TONIGHT, UP SEVERAL TIMES TO BSC. LOOSE MUCOUSY STOOL, TESTED C DIFF NEG EARLIER IN DAY. ON BIPAP AT 6L, NC AT 4L, CONT PULSE OX IN PLACE, O2 SAT ABOVE 92%. ON TELE, NSR @ 60 AT THIS TIME. PT DID HAVE A FEW MINUTES OF AFIB PER INSPECTOR POISING, SEE PRIOR NOTE. PERMACATH TO R CHEST WALL C/D/I. PLAN FOR D/C TO UV SOON.
[2018-12-14] MEDS ORDERED: CLOP75 PO (15:11)
[2018-12-14] MEDS ORDERED: Bumetanide2 MG PO (15:11)
[2018-12-14 15:12] LABS: Creatinine, Blood 2.12 mg/dL (0.60-1.20)
[2018-12-14] MEDS ORDERED: DILT120 PO (15:12)
[2018-12-14] MEDS ORDERED: Klor-Con 1010 MEQ PO (15:14)
[2018-12-14] MEDS ORDERED: ATROVENT INH (15:22)
--- NOTE | 2018-12-14 17:37 | NUR ---
PT DISCHARGED TO [facility]IA [facility]. PT TRANSFERED INDEPENDENTLY TO [facility] [place] IN ROOM. PTS SPOUSE TOOK PTS BELONGINGS UPON DISCHARGE. PT AND SPOUSE PROVIDED DISCHARGE INSTRUCTIONS. PT ALERT AND ORIENTED AT DISCHARGE. IV REMOVED PRIOR TO DISCHARGE.
== END 2018-12-14 17:32 | DRG 246 ==
LOC: ER 11:50 → MEDS 14:23 → ICUW 14:23 → PCU 14:23 → ICUW 18:08 → ICUE 12-05 19:09 → PCU 12-06 15:43 → MEDS 12-09 16:14 → EDPENDDIS 12-14 11:25 → ENPENDDIS 12-14 11:25 → MEDS 12-14 17:32
PROVIDERS: Emergency Medicine; Internal Medicine Cardiovascular Disease; Internal Medicine Nephrology; ADMIT Internal Medicine Endocrinology, Diabetes & Metabolism
PROC: 027135Z Dilation of Coronary Artery, Two Arteries with Two Drug-eluting Intraluminal Devices, Percutaneous Approach (ICD-10-PCS; 2018-12-04)
PROC: B2111ZZ Fluoroscopy of Multiple Coronary Arteries using Low Osmolar Contrast (ICD-10-PCS; 2018-12-04)
PROC: 4A023N7 Measurement of Cardiac Sampling and Pressure, Left Heart, Percutaneous Approach (ICD-10-PCS; 2018-12-04)
PROC: 5A2204Z Restoration of Cardiac Rhythm, Single (ICD-10-PCS; 2018-12-04)
PROC: 5A1D70Z Performance of Urinary Filtration, Intermittent, Less than 6 Hours Per Day (ICD-10-PCS; principal; 2018-12-10)
DX: I25.110 Atherosclerotic heart disease of native coronary artery with unstable angina pectoris (principal); I49.01 Ventricular fibrillation; Z68.42 Body mass index [BMI] 45.0-49.9, adult; I97.790 Other intraoperative cardiac functional disturbances during cardiac surgery; N25.81 Secondary hyperparathyroidism of renal origin; I13.0 Hypertensive heart and chronic kidney disease with heart failure and stage 1 through stage 4 chronic kidney disease, or unspecified chronic kidney disease; N17.9 Acute kidney failure, unspecified; I24.9 Acute ischemic heart disease, unspecified; N14.1 Nephropathy induced by other drugs, medicaments and biological substances; J44.9 Chronic obstructive pulmonary disease, unspecified; Z87.891 Personal history of nicotine dependence; Z95.5 Presence of coronary angioplasty implant and graft; Z99.81 Dependence on supplemental oxygen; E66.01 Morbid (severe) obesity due to excess calories; E11.22 Type 2 diabetes mellitus with diabetic chronic kidney disease; G47.33 Obstructive sleep apnea (adult) (pediatric); H40.9 Unspecified glaucoma; F41.1 Generalized anxiety disorder; I27.20 Pulmonary hypertension, unspecified; E83.42 Hypomagnesemia; E87.6 Hypokalemia; Z79.4 Long term (current) use of insulin; I25.5 Ischemic cardiomyopathy; Z95.0 Presence of cardiac pacemaker; D63.1 Anemia in chronic kidney disease; Z99.2 Dependence on renal dialysis; N18.3 Chronic kidney disease, stage 3 (moderate)
CPT/HCPCS: 36415; 36430; 36558; 70450; 71045; 74022; 76770; 76937; 80048; 80053; 80069; 80074; 82565; 82947; 83735; 83880; 84484; 85014; 85018; 85025; 85347; 86317; 86850; 86900; 86901; 86923; 87205; 87493; 90686; 93005; 93010; 93280; 93306; 93458; 94640; 94660; 94667; 94760; 94762; 97110; 97116; 97162; 97166; 97530; 97535; 99152; 99153; 99285-25; C1725; C1769; C1874; C1887; C1894; C9600; C9601; G0008; J0282; J0360; J0881; J1644; J1650; J1815; J1940; J2250; J3010; J3475; J3480; J7030; J7040; J7050; J7060; P9016; Q9967

== ENCOUNTER → 2019-01-10 | Outpatient (CLI) | payer MEDICARE, OTHER ==
[~2019-01-10] MED LIST changes: +ATROVENT INH; +Bumetanide2 MG PO; +CENTRUM ADULTS1 EACH PO; +CLOP75 PO; +CYAN500 PO; +DILT120 PO; +DULCOLAX STOOL100 MG PO; +FISH OIL 1,0001 EAC2 PO; +GUAI600T33 PO; +Humulin N100 UNIT/1; +Klor-Con 1010 MEQ PO; +QVAR REDIHALE10.6 GM INH; +Travatan Z5 ML
== END | disposition home or self-care (01) ==
LOC: LAB SHORT 17:41 → LAB 17:41 → LAB FUT 01-03 15:35
DX: A04.72 Enterocolitis due to Clostridium difficile, not specified as recurrent (principal)
CPT/HCPCS: 87493

== ENCOUNTER → 2019-02-03 | Outpatient (CLI) | payer MEDICARE, OTHER | END | disposition home or self-care (01) | LOC: LAB SHORT 14:40 → LAB 14:40 | PROVIDERS: Hospitalist | DX: K52.9 Noninfective gastroenteritis and colitis, unspecified (principal) | CPT/HCPCS: 87324; 87493 ==

== ENCOUNTER → 2019-03-05 | Outpatient (CLI) | payer MEDICARE, OTHER | END | disposition home or self-care (01) | LOC: LAB SHORT 19:00 → LAB 19:00 → LAB FUT 03-05 10:15 → EDSTATUS 03-05 10:15 | DX: A04.72 Enterocolitis due to Clostridium difficile, not specified as recurrent (principal) ==

== ENCOUNTER 2019-04-11 14:37 | Inpatient (IN) | payer MEDICARE, OTHER ==
[~2019-04-11] VITALS: Ht 172.7 cm; Wt 133.3 kg
[~2019-04-11 14:37] MED LIST changes: -Humalog100 UNIT/1; +Humalog100 UNIT/1 SC; -Humulin N100 UNIT/1; +Humulin N100 UNIT/1 SC; -Travatan Z5 ML; +Travatan Z5 ML BOTHEYES
[2019-04-11 15:06] LABS: BASOPHILS ABSOLUTE AUTO 0.03 K/mm3 (0.00-0.23); BASOPHILS PERCENT AUTO 0 % (0-2); EOSINOPHILS ABSOLUTE AUTO 0.03 K/mm3 (0.00-0.68); EOSINOPHILS PERCENT AUTO 0 % (0-6); Hematocrit 35.4 % (37.0-53.0); Hemoglobin 11.1 g/dL (13.5-17.5); IMMATURE GRAN ABSOLUTE AUTO 0.19 K/mm3 (0.00-0.10); IMMATURE GRAN PERCENT AUTO 1 % (0-1); LYMPHOCYTES ABSOLUTE AUTO 0.81 K/mm3 (0.84-5.20); LYMPHOCYTES PERCENT AUTO 5 % (21-46); MONOCYTES ABSOLUTE AUTO 0.84 K/mm3 (0.16-1.47); MONOCYTES PERCENT AUTO 5 % (4-13); Mean Corpuscular HGB 28.8 pg (26.0-34.0); Mean Corpuscular HGB Conc 31.4 g/dL (31.5-36.5); Mean Corpuscular Volume 92 fL (80-100); Mean Platelet Volume 10.2 fL (9.1-12.4); NEUTROPHILS ABSOLUTE AUTO 14.33 K/mm3 (1.96-9.15); NEUTROPHILS PERCENT AUTO 88 % (41-73); Platelet Count 241 K/mm3 (150-400); RDW Standard Deviation 56.6 fL (35.1-46.3); Red Blood Cell Count 3.85 M/mm3 (4.30-5.90); White Blood Cell Count 16.23 K/mm3 (4.00-11.30)
[2019-04-11 15:16] LABS: PCO2 Arterial 47.1 mmHg (35-45); PO2 Arterial 90.5 mmHg (80-100); pH Blood Arterial 7.41 (7.35-7.45)
[2019-04-11 15:30] LABS: Alanine Aminotransfer (ALT/SGP 89 U/L (12-78); Albumin, Blood 2.7 g/dL (3.4-5.0); Albumin/Globulin Ratio 0.5 (0.8-1.8); Alk Phos 130 U/L (50-136); Anion Gap 10 mmol/L (6-16); Aspartate Aminotrans (AST/SGOT 58 U/L (12-37); Bilirubin, Total 0.5 mg/dL (0.1-1.0); Blood Urea Nitrogen 103 mg/dL (8-24); CO2, Blood 28 mmol/L (21-32); Calcium, Blood 9.2 mg/dL (8.5-10.1); Chloride, Blood 90 mmol/L (98-108); Creatinine, Blood 2.19 mg/dL (0.60-1.20); Globulin, Blood 5.3 g/dL (2.2-4.0); Glomerular Filtration Rate 31 (60-); Glucose, Blood 126 mg/dL (70-99); Potassium, Blood 5.4 mmol/L (3.5-5.5); Sodium, Blood 128 mmol/L (136-145); Troponin I <0.015 ng/mL (0.000-0.040)
[2019-04-11 16:15] LABS: Adenovirus Not Detected (NOT DETECT); Coronavirus 229E Not Detected (NOT DETECT); Coronavirus HKU1 Not Detected (NOT DETECT); Coronavirus NL63 Not Detected (NOT DETECT); Coronavirus OC43 Not Detected (NOT DETECT); Human Metapneumovirus Not Detected (NOT DETECT); Human Rhinovirus/Enterovirus Not Detected (NOT DETECT); Influenza A Not Detected (NOT DETECT); Influenza A/2009-H1 Not Detected (NOT DETECT); Influenza A/H1 Not Detected (NOT DETECT); Influenza A/H3 Not Detected (NOT DETECT); Influenza B Not Detected (NOT DETECT); Parainfluenza Virus 1 Not Detected (NOT DETECT); Parainfluenza Virus 2 Not Detected (NOT DETECT); Parainfluenza Virus 3 Not Detected (NOT DETECT); Parainfluenza Virus 4 Not Detected (NOT DETECT); Respiratory Syncytial Virus Not Detected (NOT DETECT)
[2019-04-11 16:16] LABS: Bordetella pertussis Not Detected (NOT DETECT); Chlamydophila pneumoniae Not Detected (NOT DETECT); Mycoplasma pneumoniae Not Detected (NOT DETECT)
[2019-04-11] MEDS ORDERED: TORSE20 PO (16:24)
[2019-04-11] MEDS ORDERED: Cartia Xt240 MG PO (16:26)
[2019-04-11] MEDS ORDERED: Imdur60 MG PO (16:27)
[2019-04-11] MEDS ORDERED: METO50ER PO (16:28)
[2019-04-11] MEDS ORDERED: PANTOPRAZOLE SO40 M2 PO (16:31)
[2019-04-11] MEDS ORDERED: Humulin N100 UNIT/1 SC (16:36)
--- NOTE | 2019-04-11 19:15 | NUR ---
RECEIVED REPORT FROM CHRISTIANO RIDLEY. ASSUMED CARE OF PT. RESTING COMFORTABLY, IN NO ACUTE DISTRESS AT THIS TIME. DENIES ANY NEEDS AT THIS TIME, CALL LIGHT AND POSSESSIONS IN REACH, AT THE BEDSIDE. BED ALARM ACTIVATED. WILL CONTINUE TO MONITOR.
[2019-04-12 04:14] LABS: BASOPHILS ABSOLUTE AUTO 0.01 K/mm3 (0.00-0.23); BASOPHILS PERCENT AUTO 0 % (0-2); EOSINOPHILS PERCENT AUTO 0 % (0-6); Hematocrit 33.9 % (37.0-53.0); Hemoglobin 10.4 g/dL (13.5-17.5); IMMATURE GRAN ABSOLUTE AUTO 0.14 K/mm3 (0.00-0.10); IMMATURE GRAN PERCENT AUTO 1 % (0-1); LYMPHOCYTES PERCENT AUTO 3 % (21-46); MONOCYTES PERCENT AUTO 1 % (4-13); Mean Corpuscular HGB 28.3 pg (26.0-34.0); Mean Corpuscular HGB Conc 30.7 g/dL (31.5-36.5); Mean Corpuscular Volume 92 fL (80-100); Mean Platelet Volume 10.1 fL (9.1-12.4); NEUTROPHILS ABSOLUTE AUTO 10.86 K/mm3 (1.96-9.15); NEUTROPHILS PERCENT AUTO 95 % (41-73); Platelet Count 227 K/mm3 (150-400); RDW Standard Deviation 57.4 fL (35.1-46.3); Red Blood Cell Count 3.67 M/mm3 (4.30-5.90); White Blood Cell Count 11.41 K/mm3 (4.00-11.30)
[2019-04-12 04:36] LABS: Albumin, Blood 2.5 g/dL (3.4-5.0); Albumin/Globulin Ratio 0.5 (0.8-1.8); Bilirubin, Total 0.6 mg/dL (0.1-1.0); Bun/Creatinine Ratio 48.9 (12.0-20.0); Calcium, Blood 8.7 mg/dL (8.5-10.1); Creatinine, Blood 2.31 mg/dL (0.60-1.20); Globulin, Blood 5.1 g/dL (2.2-4.0); Potassium, Blood 5.3 mmol/L (3.5-5.5); Total Protein, Blood 7.6 g/dL (6.4-8.2)
--- NOTE | 2019-04-12 06:42 | NUR ---
SPOKE TO DR. LATIF REGARDING PT'S SODIUM LEVEL AND CBGS. NO NEW ORDERS RECEIVED AT THIS TIME.
--- NOTE | 2019-04-12 07:36 | NUR ---
PT RESTING IN BED COMFORTABLY, IN NO ACUTE DISTRESS. WAS MONITORED EVERY 1-2 HOURS WITH NEEDS MET, DENIES ANY NEEDS AT THIS TIME. VS STABLE. PT VOICING CONCERNS REGARDING PT'S INCREASINGLY DARKENING URINE, THIS RN REASSURED THAT THE APPROPRIATE PHYSICIAN WOULD BE CONSULTED AND MADE AWARE OF THE SITUATION, DAY SHIFT RN AWARE AND WILL NOTIFY PHYSICIAN. CALL LIGHT IN REACH, BED ALARM ACTIVATED.
--- NOTE | 2019-04-12 08:58 | NUR ---
Echocardiogram completed.
[2019-04-12 13:09] LABS: Bun/Creatinine Ratio 52.5 (12.0-20.0); Calcium, Blood 8.7 mg/dL (8.5-10.1); Creatinine, Blood 2.23 mg/dL (0.60-1.20); Potassium, Blood 4.9 mmol/L (3.5-5.5)
--- NOTE | 2019-04-12 16:25 | NUR ---
Initial palliative care consult: Arturo is an 84 year old with a history of CAD, CHF, COPD, YONNY with CPAP use at home, obesity, CKD stage three, HTN, a-fib, bladder and lung cancer, anxiety, glaucoma, recurrent c-diff. He was admitted on 04/11/19 with a 4-5 day history of worsening dyspnea. His , Marleny, is at the bedside and is his caregiver at home. They live in a 60 foot long home. He is able to get from his bedroom on one end to his office on the other end but needs to stop once to catch his breath recently. He wears 4 l/min O2 at home during the day and 8 l/min with bipap at night. He has two walkers, one has a seat on it. He has an O2 concentrator and a neb machine as well. Marleny reports she is his caregiver 06/09. They have been for 35-40 years "We quit counting how long." They have three adult children. Two live in [place], one in [place]. Arturo is needing some assistance with ADLs. His has been able to provide it so far, however she reports that some days it gets more difficult. They have had [facility] in the past and are interested in receiving services again. Discussed the differences between hospice and HH and the goals for each. Arturo clearly states he does not want hospice at this time. Marleny reports that the word hospice makes him fearful. He reports he has an AD/POLST at home that is a full code and that this is still his wish. "As long as I'm still breathing, I will fight to the end." They are also interested in in home caregivers that could come and help with cleaning and be present for when Marleny needs to run errands and take time for herself. Marleny reports that they have the senior resources booklet at home and will plan to contact some agencies when they get home. They report they have the funds to pay privately for a few hours a week of caregiving. They are excited about having a respiratory therapist make home visits through the high risk readmission program. They report they met RT Francisco, this morning re: that program. Currently he denies SOB and pain. He wears his bipap from home intermittently while he is here. He has no other complaints at this time except some fatigue. Ended visit to allow him to rest. He wish at this time is to get better and to go home with [facility] services. His agrees with his decision. Nursing, TORITO Michelle, and Dr. Barrientos updated. He will continue to be a high risk for readmission as he clearly stated he is not ready for hospice services at this time. PC will continue to follow for symptom management.
--- NOTE | 2019-04-12 18:41 | NUR ---
PCU DAYSHIFT SUMMARY PATIENT CONFUSED - ORIENTED TO SELF AND FAMILY. PATIENT BEDREST T/O DAY WITH Q2 TURNS - LEVINE CATH IN PLACE IS CONTINUALLY LEAKING CRANBERRY COLOR URINE - ALSO NOTED IN UROMETER. PATIENT WORE HIS HOME BIPAP T/O DAY WITH VERY SMALL BREAKS - 3 LITER BLEED IN O2. HEART RATE CONTINUED ST C/ BUNDLE. PATIENT HAS PACEMAKER. PATIENT SLEPT MAJORITY OF SHIFT. NO ACUTE CHANGES NOTED. WILL CONTINUE TO MONITOR AND GIVE REPORT TO NOC SHIFT RN. CALL LIGHT W/I REACH.
--- NOTE | 2019-04-12 19:15 | NUR ---
RECEIVED REPORT FROM CHRISTIANO MURPHY. ASSUMED CARE OF PT. IN NO ACUTE DISTRESS AT THIS TIME, RESTING COMFORTABLY. DENIES ANY NEEDS AT THIS TIME. AT THE BEDSIDE. CALL LIGHT AND POSSESSIONS IN REACH, BED ALARM ON. WILL CONTINUE TO MONITOR.
--- NOTE | 2019-04-13 02:00 | NUR ---
UPDATE: PT INCREASINGLY CONFUSED AND AGITATED COMPARED TO BASELINE, PULLING AT LINES AND REMOVING IV SITES. THIS RN AT THE BEDSIDE T/O NIGHT RE-DIRECTING PT AND ATTEMPTING TO DECREASE PT LEVEL OF ANXIETY. PT RE-DIRECTABLE AT TIMES, FOLLOWED BY PERIODS OF INCREASED AGITATION. SPOKE TO DR. CHUN REGARDING PT CONDITION, ORDERS RECEIVED. WILL CONTINUE TO MONITOR AND REASSESS PT.
[2019-04-13 04:56] LABS: BASOPHILS ABSOLUTE AUTO 0.01 K/mm3 (0.00-0.23); BASOPHILS PERCENT AUTO 0 % (0-2); EOSINOPHILS PERCENT AUTO 0 % (0-6); Hematocrit 34.4 % (37.0-53.0); Hemoglobin 10.9 g/dL (13.5-17.5); IMMATURE GRAN ABSOLUTE AUTO 0.23 K/mm3 (0.00-0.10); IMMATURE GRAN PERCENT AUTO 2 % (0-1); LYMPHOCYTES ABSOLUTE AUTO 0.49 K/mm3 (0.84-5.20); LYMPHOCYTES PERCENT AUTO 4 % (21-46); MONOCYTES PERCENT AUTO 4 % (4-13); Mean Corpuscular HGB 28.8 pg (26.0-34.0); Mean Corpuscular HGB Conc 31.7 g/dL (31.5-36.5); Mean Corpuscular Volume 91 fL (80-100); Mean Platelet Volume 10.2 fL (9.1-12.4); NEUTROPHILS ABSOLUTE AUTO 10.43 K/mm3 (1.96-9.15); NEUTROPHILS PERCENT AUTO 90 % (41-73); NRBC ABSOLUTE 0.05 K/mm3 (0.00-0.02); NRBC Auto 0.4 /100 WBC (0.0-0.2); Platelet Count 249 K/mm3 (150-400); RDW Coefficient Variation 16.9 % (11.7-14.2); RDW Standard Deviation 55.8 fL (35.1-46.3); Red Blood Cell Count 3.78 M/mm3 (4.30-5.90); White Blood Cell Count 11.56 K/mm3 (4.00-11.30)
[2019-04-13 05:13] LABS: Bun/Creatinine Ratio 45.8 (12.0-20.0); Calcium, Blood 8.7 mg/dL (8.5-10.1); Creatinine, Blood 2.77 mg/dL (0.60-1.20); Potassium, Blood 5.4 mmol/L (3.5-5.5)
[2019-04-13 06:31] LABS: Source, Urine Catheter
--- NOTE | 2019-04-13 06:40 | NUR ---
SPOKE TO DR. PIKE REGARDING PT'S SODIUM LEVEL AND HR. NO NEW ORDERS RECEIVED AT THIS TIME, PHYSICIAN WILL REVIEW PT CHART AND ENTER ORDERS NEEDED.
[2019-04-13 06:52] LABS: Bilirubin, Urine Neg (Neg); Blood, Urine 5+ (Neg); Glucose Qualitative, Urine Neg (Neg); Ketones, Urine Neg (Neg); Leukocyte Esterase, Urine Neg (Neg); Nitrite, Urine Neg (Neg); Protein, Urine 4+ (Neg); Urobilinogen, Urine NORM (Normal); pH, Urine 6.5 (5.0-8.0)
[2019-04-13 07:01] LABS: Color, Urine Brown (P-Yellow)
[2019-04-13 07:02] LABS: Appearance, Urine Bloody (Clear)
[2019-04-13 07:04] LABS: Red Blood Cells, Urine TNTC /hpf (0-2); Squamous Epithelial Cells Rare /hpf (Few)
[2019-04-13 07:05] LABS: Bacteria Few /hpf; Transitional Epithelial Cells Few /hpf (0-Rare)
[2019-04-13 07:06] LABS: Amorphous Light (0-Heavy)
--- NOTE | 2019-04-13 07:51 | NUR ---
PT RESTING IN BED COMFORTABLY, AT THE BEDSIDE. PT WAS MONITORED EVERY 1-2 HOURS T/O NIGHT, SLEPT ON AND OFF. VS AND BPS STABLE, PT CALM AND COOPERATIVE AT THIS TIME. UPDATED ON PT CONDITION T/O NIGHT, NEEDS AND CONCERNS ADDRESSED. PT DENIES ANY NEEDS AT THIS TIME. CALL LIGHT WITHIN REACH, BED IN LOW POSITION, BED ALARM ACTIVATED. REPORTED OFF TO CHRISTIANO MONSON.
--- NOTE | 2019-04-13 10:22 | NUR ---
Went to visit with Arturo and his this morning. Arturo is sleeping, Marleny requested that we step out of the room to have a conversation. Marleny reports that she feels frustrated re: Arturo's care in the hospital. She states that she saw Dr. Araujo this morning and now feels that "The right doctors are going to see him now." She reports that Dr. Cross has been consulted and she is pleased with this. She reports that she plans to take him home with home health when he is ready for discharge. She spoke with the [facility] staff this morning. She states that the word "hospice" scares Arturo and she acknowledges that hospice will likely be an option in the near future. At this time, neither one of them is ready for hospice yet. Allowed her to vent her feelings and she reported that she felt better and thanked this advertising copywriter for the time. Marleny did say she will want more information on the hospice program but not at this time. Encouraged her to ask nursing or to contact PC to obtain more material re: hospice when she is ready. PC will continue to follow for advanced care planning and symptom management.
--- NOTE | 2019-04-13 12:33 | NUR ---
Limited suppllemental echo images obtained,
--- NOTE | 2019-04-13 18:38 | NUR ---
SHIFT NOTE PT HAS BEEN MORE ALERT DURING THIS SHIFT, HAS NOT BEEN ATTEMPTING TO REMOVE LINES OR BIPAP. PT WAS OUT OF RESTRAINTS UPON ASSUMING PT CARE THIS AM. PT HAS SLEPT A GOOD PORTION OF THE SHIFT, BUT IS EASY TP ARROUSE TO VERBAL SIMULI. BLADDER IRRIGATION WAS PERFORMED TODAY WITH 700ML OF STERILE WATER WITH CLEAR RETURN AND 700ML OF RETURN POST IRIGATION, LEVINE HAS BEEN DRAINGING KIKO TEA COLORED URINE SINCE IRRIGATION. S/O ISAT BEDSIDE IS VERY INVOLVED IN CARE. MELINDA HAS CONSULTED,
--- NOTE | 2019-04-13 21:14 | NUR ---
ASSUMED CARE OF PATIENT AT APPROXIMATELY 1900 FROM IONA Lee RN. PATIENT WAKES TO VERBAL STIMULUS; FALLS EASILY TO SLEEP WHEN CONVERSATION IS OVER. EMILIANET IS ORIENTED X4; PATIENT STATES PEOPLE WERE HERE TO HURT HIM LAST NIGHT. PATIENT DENIES CP/PRESSURE, PAIN ELSEHWERE, NUMBNESS, TINGLING, DIZZINESS OR NAUSEA. AFLUTTER ON TELE W/ A RATE OF 105-108; OXYGEN SATURATION ABOVE 90% ON HOME BIPAP W/ 5LPM BLEED IN. PIV S/L. WAS BEDSIDE DURING BEDSIDE REPORT; REPORTS SHE WILL RETURN IN AM. PATIENT ON BEDREST; Q2H TURNS; URINARY CATH IN PLACE; TEA COLORED URINE DRAINING. PATIENT CURRENTLY RESTING IN BED; CALL LIGHT IN REACH; BED IN LOWEST POSISTION; BED ALARM ON; WILL CONTINUE TO MONITOR AND ASSESS UNTIL END OF SHIFT.
[2019-04-14 05:53] LABS: BASOPHILS ABSOLUTE AUTO 0.01 K/mm3 (0.00-0.23); BASOPHILS PERCENT AUTO 0 % (0-2); EOSINOPHILS ABSOLUTE AUTO 0.01 K/mm3 (0.00-0.68); EOSINOPHILS PERCENT AUTO 0 % (0-6); Hematocrit 33.9 % (37.0-53.0); IMMATURE GRAN ABSOLUTE AUTO 0.18 K/mm3 (0.00-0.10); IMMATURE GRAN PERCENT AUTO 2 % (0-1); LYMPHOCYTES ABSOLUTE AUTO 0.57 K/mm3 (0.84-5.20); LYMPHOCYTES PERCENT AUTO 6 % (21-46); MONOCYTES ABSOLUTE AUTO 0.34 K/mm3 (0.16-1.47); MONOCYTES PERCENT AUTO 3 % (4-13); Mean Corpuscular HGB 29.6 pg (26.0-34.0); Mean Corpuscular HGB Conc 32.4 g/dL (31.5-36.5); Mean Corpuscular Volume 91 fL (80-100); NEUTROPHILS ABSOLUTE AUTO 8.86 K/mm3 (1.96-9.15); NEUTROPHILS PERCENT AUTO 89 % (41-73); NRBC ABSOLUTE 0.03 K/mm3 (0.00-0.02); NRBC Auto 0.3 /100 WBC (0.0-0.2); RDW Coefficient Variation 17.2 % (11.7-14.2); Red Blood Cell Count 3.72 M/mm3 (4.30-5.90); White Blood Cell Count 9.97 K/mm3 (4.00-11.30)
[2019-04-14 05:54] LABS: Mean Platelet Volume 10.5 fL (9.1-12.4); Platelet Count 207 K/mm3 (150-400)
[2019-04-14 05:57] LABS: Albumin, Blood 2.6 g/dL (3.4-5.0); Albumin/Globulin Ratio 0.6 (0.8-1.8); Bilirubin, Total 0.4 mg/dL (0.1-1.0); Bun/Creatinine Ratio 54.9 (12.0-20.0); Calcium, Blood 8.7 mg/dL (8.5-10.1); Creatinine, Blood 2.44 mg/dL (0.60-1.20); Globulin, Blood 4.4 g/dL (2.2-4.0); Magnesium, Blood 2.4 mg/dL (1.6-2.4); Phosphorus, Blood 3.5 mg/dL (2.5-4.9); Potassium, Blood 4.6 mmol/L (3.5-5.5)
--- NOTE | 2019-04-14 06:37 | NUR ---
NO ACUTE CHANGES TO REPORT. CARDIO CONSULT CALLED IN; DR. HEART NOT PLANT NURSERY WORKER; DR. GROVER TO SEE PATIENT. UPDATED THIS MORNING. BROUGHT IN HOME EYE DROPS AND MIGHT BE ABLE TO BRING IN CRESTOR.
--- NOTE | 2019-04-14 19:06 | NUR ---
SHIFT SUMMARY NO ACUTE CHANGES NOTED FROM ASSESMENT. PT REMAINS A&O X3, VSS, HOME CPAP IN PLACE, CARDIOLOGY HAS CONSULTED TODAY AND SPOKE WITH THE PT AND HIS . PT'S HAS BEEN AT THE BEDSIDE AND ASSIST'S WITH CARE. PT WILL BE MOVED TO A BARIATRIC MATTRESS. REPORT TO BE GIVEN TO KIERRA ALVARADO. MELVA, CALL LIGHT IN REACH
--- NOTE | 2019-04-14 19:45 | NUR ---
Assumed Care Pt in bed with at bedside, VSS, calm and cooperative. Alert and oriented, delayed responses to questions at times but converses appropriately. Pt with tremors to BUE, more pronounces with extension. Home CPAP with 5L bleed in in place at time of shift change. Pt breathing even and unlabored at rest, increased dyspnea with movement. Q2 turns, barriatric bed. Tele shows afib/aflut in low 100's. Baird cath in place draining cranberry colored urine. Visualized with offgoing RN. Lungs diminshed to bilat LL, denies SOB. See shift assessment for detailed systems assessment. Pt takes all medications whole with water. No acute concerns to note at this time.
--- NOTE | 2019-04-14 20:15 | NUR ---
CBG of 419 tonight, provider called and notified. No new orders recieved, pt to recieve existing orders of 20 og Sancho N.
[2019-04-15 04:51] LABS: Hematocrit 34.9 % (37.0-53.0); Hemoglobin 10.8 g/dL (13.5-17.5)
--- NOTE | 2019-04-15 04:52 | NUR ---
Shift Summary No acute events overnight, pt sleeping with seroquel per orders. Home CPAP with 5L bleed in on pt all shift. VSS. Pt denies SOB, dyspnea noted with turns and repositions. Baird in place, draining dark colored urine, less red than start of shift. Pt has remained alert and oriented throughout the shift, tremors noted to BUE making it difficult for pt to grasp onto item and difficult for pt to read on his steven. No acute declines from initial shift assessment. Will continue to monitor.
[2019-04-15 05:14] LABS: Albumin, Blood 2.6 g/dL (3.4-5.0); Anion Gap 9 mmol/L (6-16); Blood Urea Nitrogen 138 mg/dL (8-24); CO2, Blood 29 mmol/L (21-32); Calcium, Blood 8.7 mg/dL (8.5-10.1); Chloride, Blood 95 mmol/L (98-108); Creatinine, Blood 2.38 mg/dL (0.60-1.20); Glomerular Filtration Rate 28 (60-); Glucose, Blood 350 mg/dL (70-99); Magnesium, Blood 2.4 mg/dL (1.6-2.4); Phosphorus, Blood 2.8 mg/dL (2.5-4.9); Potassium, Blood 4.4 mmol/L (3.5-5.5); Sodium, Blood 133 mmol/L (136-145)
--- NOTE | 2019-04-15 07:28 | NUR ---
ASSUMED PATIENT CARE. PATIENT RESTING COMFORTABLY IN BED, SPOUSE AT BEDSIDE. PATIENT ON HOME CPAP, EQUAL BILATERAL CHEST RISE WITH BREATH. NO SIGNS OF ACUTE DISTRESS, WCTM.
--- NOTE | 2019-04-15 16:09 | NUR ---
REPORT GIVEN TO CHRISTIANO BRAXTON IN MEDICAL.
--- NOTE | 2019-04-15 17:10 | NUR ---
PCU TRANSFER- PT ARRIVED TO ROOM 343 VIA BARIATRIC AIRBED FROM PCU 2. PT A/OX3, SPOUSE AT BEDSIDE. PT DENIES ANY PAIN OR OTHER COMPLAINTS AT THIS TIME. LS CLEAR, ON 4L N/C DURING THE DAY AND 8L BLEED WITH BIPAP AT HS. CONT BIOX PLACED. HRR. PACER TO LCW. TELE DC'D. 1+ BLE EDEMA NOTED INTO THIGHS. LEVINE DC'D PRIOR TO TRANSFER. PT ABLE TO ASSIST WITH REPOSITIONING IN BED. SKIN WITH SCATTERED BRUISING TO BUE. 20G TO RAC-SL. PT ORIENTED TO ROOM AND CALL SYSTEM. CALL LIGHT IN REACH.
[2019-04-15 22:19] LABS: Free Thyroxine 1.1 ng/dL (0.70-1.60)
[2019-04-15 22:20] LABS: Triiodothyronine, Free 1.59 pg/mL (2.18-3.98)
[2019-04-16 05:23] LABS: Hematocrit 35.9 % (37.0-53.0); Hemoglobin 11.2 g/dL (13.5-17.5); Mean Corpuscular HGB 28.7 pg (26.0-34.0); Mean Corpuscular HGB Conc 31.2 g/dL (31.5-36.5); Mean Corpuscular Volume 92 fL (80-100); Mean Platelet Volume 10.4 fL (9.1-12.4); NRBC ABSOLUTE 0.05 K/mm3 (0.00-0.02); NRBC Auto 0.4 /100 WBC (0.0-0.2); Platelet Count 228 K/mm3 (150-400); RDW Coefficient Variation 17.3 % (11.7-14.2); RDW Standard Deviation 57.5 fL (35.1-46.3); White Blood Cell Count 12.22 K/mm3 (4.00-11.30)
[2019-04-16 05:56] LABS: Albumin, Blood 2.8 g/dL (3.4-5.0); Anion Gap 7 mmol/L (6-16); Blood Urea Nitrogen 140 mg/dL (8-24); Bun/Creatinine Ratio 58.8 (12.0-20.0); CO2, Blood 30 mmol/L (21-32); Calcium, Blood 8.8 mg/dL (8.5-10.1); Chloride, Blood 95 mmol/L (98-108); Creatinine, Blood 2.38 mg/dL (0.60-1.20); Glomerular Filtration Rate 28 (60-); Glucose, Blood 287 mg/dL (70-99); Magnesium, Blood 2.4 mg/dL (1.6-2.4); Potassium, Blood 4.5 mmol/L (3.5-5.5); Sodium, Blood 132 mmol/L (136-145)
[2019-04-16 05:59] LABS: BAND PERCENT MAN 1 % (0-8); BASOPHILS PERCENT MAN 0 % (0-2); EOSINOPHILS PERCENT MAN 0 % (0-6); LYMPHOCYTES ABSOLUTE MAN 0.61 K/mm3 (0.84-5.20); LYMPHOCYTES PERCENT MAN 5 % (21-46); METAMYELOCYTE ABSOLUTE MAN 0.36 K/mm3 (0.00-0.00); METAMYELOCYTE PERCENT MAN 3 % (0-0); MONOCYTES ABSOLUTE MAN 0.73 K/mm3 (0.16-1.47); MONOCYTES PERCENT MAN 6 % (4-13); SEG NEUTROPHILS PERCENT MAN 85 % (41-73); TOTAL CELLS COUNTED 100
--- NOTE | 2019-04-16 06:36 | NUR ---
TABLE WORKER PACKAGER SUMMARY slept quite well. no difficulty using own bipap overnight. no complaints of pain, Patient appears very aware of the myriad of health issues he faces. Somewhat tangential an can get timeline mixed up, however, did not at all seem confused overnight. cooperative with care. Lung sounds clear with air movement over right mid and lower lung duffy heard on expiration. bowel tone present times 4. Pt looking forward to PT elijah today to find out how soon they he might get to go home. He is aware he has been very inactive since being ill.
--- NOTE | 2019-04-16 11:12 | NUR ---
received rpt from [facility] shift nurse, a+o, sitting up in bed, with at bedside, sob upon exertion, medicated as prescribed, up with ot to side of bed, in to talk as was discharge planning, able to talk in full sentences when lying in bed resting, 4L via nc, saline locked, PERRL, escort blind even but weak, pulse strong, tingling to feet at times but not today, profusion good, called pharmacy for med list, will continue to monitor and treat as prescribed, bed in low position, enjoyed breakfast
--- NOTE | 2019-04-16 15:26 | NUR ---
Changed iv dressing, bm was clear mucus, stated it was the same as last night, sitting up talking with and watching tv, sob upon exertion, 4l via nc
--- NOTE | 2019-04-16 18:46 | NUR ---
SHIFT SUMMARY- PT TRANSFERED TO ROOM 306 FOR THE CEILING LIFT. NO ACUTE CHANGE SINCE TRANSFER MEDICATED WITH 14 UNITS OF HUMALOG FOR BG OF 321. PT ALERT AND ORIENTED, SPOUSE AT THE BEDSIDE AND VERY INVOLVED WITH CARE. PT WEARS 4L VIA NC AND CPAP AT NIGHT WITH 8L BLEED IN. PT IS ON CONT BIOX; HOWEVER BIOX DID NOT TRANSFER WITH THE PT CALLED RT AND REQUESTED ONE IN THE ROOM. THEY WILL COME SHORTLY.
[2019-04-17 04:55] LABS: Hematocrit 34.2 % (37.0-53.0); Hemoglobin 10.8 g/dL (13.5-17.5)
[2019-04-17 05:13] LABS: Albumin, Blood 2.6 g/dL (3.4-5.0); Anion Gap 6 mmol/L (6-16); Blood Urea Nitrogen 144 mg/dL (8-24); Bun/Creatinine Ratio 59.8 (12.0-20.0); CO2, Blood 31 mmol/L (21-32); Calcium, Blood 8.7 mg/dL (8.5-10.1); Chloride, Blood 94 mmol/L (98-108); Creatinine, Blood 2.41 mg/dL (0.60-1.20); Glomerular Filtration Rate 27 (60-); Glucose, Blood 316 mg/dL (70-99); Magnesium, Blood 2.3 mg/dL (1.6-2.4); Phosphorus, Blood 3.1 mg/dL (2.5-4.9); Potassium, Blood 4.8 mmol/L (3.5-5.5); Sodium, Blood 131 mmol/L (136-145)
--- NOTE | 2019-04-17 05:21 | NUR ---
SHIFT SUMMARY- PT. HAD NO ACUTE CHANGES OVERNIGHT. REPOSITIONED FOR COMFORT AND PRN. PT. WEARING CPAP DURING THE NIGHT. APPEARED TO HAVE RESTED WELL T/O THE SHIFT. NO APPARENT DISTRESS NOTED. PT. CALLS APPROPRIATELY FOR USE OF URINAL. DENIED ANY PAIN OR DISCOMFORT. CALL LIGHT WITHIN REACH AND SIDE RAILS UP X2. WILL CONT TO MONITOR.
--- NOTE | 2019-04-17 18:00 | NUR ---
SHIFT SUMMARY PT UP TO RECLINER CHAIR WITH LIFT FOR LUNCH. PT UP FOR SEVERAL HOURS AND WAS QUITE TIRED BY THE TIME HE WENT BACK TO BED. AT BEDSIDE MOST OF THE DAY. NASAL CANNULA OR BIPAP ON AT ALL TIMES. EXERTIONAL RESP DISTRESS BUT SELF RESOLVES. REPORTED SORE THROAT THIS MORNING AND MD CHECKED PT DURING VISIT ACCORDING TO . PLANS FOR DISCHARGE HOME ON HOME HEALTH AND EQUIPMENT FOR MOBILITY.
--- NOTE | 2019-04-18 04:29 | NUR ---
SHIFT SUMMARY- NO ACUTE CHANGES OVERNIGHT. PT. IS PLEASANT AND COOPERATIVE WITH CARE. ASLEEP ON/OFF T/O THE SHIFT WITH BIPAP ON. NO ACUTE DISTRESS NOTED. BS ELEVATED AT 412 LAST NIGHT. DOWN TO THE 200'S AFTER SCHEDULED INSULIN GIVEN. CEILING LIFT IS USED TO REPOSITION PT. PRN. NO C/O PAIN OR DISCOMFORT. VSS. CALL LIGHT WITHIN REACH AND SIDE RAILS UP X2. WILL CONT TO MONITOR.
[2019-04-18 05:08] LABS: BASOPHILS ABSOLUTE AUTO 0.02 K/mm3 (0.00-0.23); BASOPHILS PERCENT AUTO 0 % (0-2); EOSINOPHILS ABSOLUTE AUTO 0.01 K/mm3 (0.00-0.68); EOSINOPHILS PERCENT AUTO 0 % (0-6); Hematocrit 35.7 % (37.0-53.0); Hemoglobin 11.4 g/dL (13.5-17.5); IMMATURE GRAN PERCENT AUTO 6 % (0-1); LYMPHOCYTES ABSOLUTE AUTO 1.11 K/mm3 (0.84-5.20); LYMPHOCYTES PERCENT AUTO 8 % (21-46); MONOCYTES ABSOLUTE AUTO 0.95 K/mm3 (0.16-1.47); MONOCYTES PERCENT AUTO 7 % (4-13); Mean Corpuscular HGB Conc 31.9 g/dL (31.5-36.5); Mean Corpuscular Volume 91 fL (80-100); Mean Platelet Volume 10.3 fL (9.1-12.4); NEUTROPHILS ABSOLUTE AUTO 11.42 K/mm3 (1.96-9.15); NEUTROPHILS PERCENT AUTO 80 % (41-73); NRBC ABSOLUTE 0.05 K/mm3 (0.00-0.02); NRBC Auto 0.3 /100 WBC (0.0-0.2); Platelet Count 221 K/mm3 (150-400); RDW Coefficient Variation 17.4 % (11.7-14.2); Red Blood Cell Count 3.93 M/mm3 (4.30-5.90); White Blood Cell Count 14.31 K/mm3 (4.00-11.30)
[2019-04-18 05:30] LABS: Albumin, Blood 2.8 g/dL (3.4-5.0); Anion Gap 8 mmol/L (6-16); Blood Urea Nitrogen 138 mg/dL (8-24); Bun/Creatinine Ratio 66.3 (12.0-20.0); CO2, Blood 30 mmol/L (21-32); Calcium, Blood 9.4 mg/dL (8.5-10.1); Chloride, Blood 96 mmol/L (98-108); Creatinine, Blood 2.08 mg/dL (0.60-1.20); Glomerular Filtration Rate 32 (60-); Glucose, Blood 233 mg/dL (70-99); Magnesium, Blood 2.4 mg/dL (1.6-2.4); Potassium, Blood 4.2 mmol/L (3.5-5.5); Sodium, Blood 134 mmol/L (136-145)
--- NOTE | 2019-04-18 08:30 | NUR ---
AT BEDSIDE. REPORTS PT DOESN'T SEEM GOOD TODAY YESTERDAY. PT SAYS HE JUST DOESN'T FEEL WELL. ATE YOGURT ONLY AND DECLINED REMAINDER OF BREAKFAST. TURNED AND REPOSITIONED FOR COMFORT. USED BEDPAN WITH 1 PERSON ASSIST. KEEPS BIPAP ON WHEN NOT BEING CARED FOR AND SLEEPING BETWEEN ROUNDING.
--- NOTE | 2019-04-18 13:45 | NUR ---
PT HAS BEEN MORE DROWSY TODAY THAN YESTERDAY AND AT TIMES HAS DIFFICULTY WAKING ENOUGH TO CONVERSE. SPOKE WITH DR. Khanh RIVERA ABOUT CHANGE IN CONDITION. O2 WAS 6L/M BLEED IN WITH BIPAP AND HAS NOW BEEN DROPPED TO 3L/M BLEED IN. SATS HAVE REMAINED IN THE 90'S WITH NO ACTIVE RESP DISTRESS NOTED. CURRENTLY EYES OPEN AND NODDING OR SHAKING HEAD TO QUESTIONS AND ABLE TO KEEP THEM OPEN WHILE BEING SPOKEN TO WHICH IS IMPROVED FROM 1130. WILL CONTINUE TO MONITER MENTAL STATUS WHILE GETTING HOME READY FOR PTS DISCHARGE.
[2019-04-18] MEDS ORDERED: Bumetanide2 MG PO (17:11)
[2019-04-18] MEDS ORDERED: DOCU100 PO (17:12)
[2019-04-18] MEDS ORDERED: Acetaminophen650 M1 PO (17:12)
[2019-04-18] MEDS ORDERED: LACT PO (17:13)
[2019-04-18] MEDS ORDERED: LEVFLO500 PO (17:14)
[2019-04-18] MEDS ORDERED: CENTRUM SILVER1 EAC2 PO (17:15)
[2019-04-18] MEDS ORDERED: VANCOCIN HCL125 MG PO (17:16)
[2019-04-18] MEDS ORDERED: Prednisone10 MG PO (17:17)
--- NOTE | 2019-04-18 19:12 | NUR ---
shift summary pt awakened approx 1545 and spoke clearly and was very chatty with staff. discussed pts condition with and both of them felt they were ready to go home this evening. spoke with md as well. discharge instructions completed and discussed with pts expressing understanding. pt did eat most of his soup and drank his milk for dinner. ride expected anytime to pick pt up.
== END 2019-04-18 20:15 | disposition home health service (06) | DRG 291 ==
LOC: ER 14:37 → PCU 16:34 → MEDS 04-15 16:39 → ENPENDDIS 04-18 11:00 → MEDS 04-18 20:15
PROVIDERS: Emergency Medicine; Family Medicine; Internal Medicine Cardiovascular Disease; Internal Medicine Nephrology; ADMIT Student in an Organized Health Care Education/Training Program
DX: I13.0 Hypertensive heart and chronic kidney disease with heart failure and stage 1 through stage 4 chronic kidney disease, or unspecified chronic kidney disease (principal); I50.43 Acute on chronic combined systolic (congestive) and diastolic (congestive) heart failure; J96.21 Acute and chronic respiratory failure with hypoxia; J96.22 Acute and chronic respiratory failure with hypercapnia; G92 Toxic encephalopathy; J44.1 Chronic obstructive pulmonary disease with (acute) exacerbation; N17.9 Acute kidney failure, unspecified; A04.71 Enterocolitis due to Clostridium difficile, recurrent; E87.1 Hypo-osmolality and hyponatremia; N25.81 Secondary hyperparathyroidism of renal origin; Z68.41 Body mass index [BMI] 40.0-44.9, adult; I25.5 Ischemic cardiomyopathy; I35.0 Nonrheumatic aortic (valve) stenosis; G47.33 Obstructive sleep apnea (adult) (pediatric); E66.01 Morbid (severe) obesity due to excess calories; I25.10 Atherosclerotic heart disease of native coronary artery without angina pectoris; I48.0 Paroxysmal atrial fibrillation; E11.22 Type 2 diabetes mellitus with diabetic chronic kidney disease; E11.65 Type 2 diabetes mellitus with hyperglycemia; R31.9 Hematuria, unspecified; N18.3 Chronic kidney disease, stage 3 (moderate); D63.1 Anemia in chronic kidney disease; E87.5 Hyperkalemia; F41.1 Generalized anxiety disorder; Z66 Do not resuscitate; Z85.118 Personal history of other malignant neoplasm of bronchus and lung; Z85.51 Personal history of malignant neoplasm of bladder; I25.2 Old myocardial infarction; Z87.891 Personal history of nicotine dependence; Z79.02 Long term (current) use of antithrombotics/antiplatelets; Z79.82 Long term (current) use of aspirin; Z79.4 Long term (current) use of insulin; Z79.899 Other long term (current) drug therapy; Z95.5 Presence of coronary angioplasty implant and graft
CPT/HCPCS: 0099U; 36415; 36600; 51702; 71045; 76770; 80048; 80053; 80069; 81001; 82803; 82947; 83735; 83880; 84100; 84145; 84439; 84443; 84481; 84484; 85014; 85018; 85025; 93005; 93010; 93308; 94640; 94664; 94667; 94760; 94761; 94762; 96374-59; 96375-59; 97110; 97162; 97166; 97530; 98960; 99285-25; A9270-GY; G0103; J1815; J1940; J1956; J2920; J2930; J7030; J7512

== ENCOUNTER → 2019-05-04 | Outpatient (CLI) | payer MEDICARE, OTHER ==
[~2019-05-04] MED LIST changes: +Acetaminophen650 M1 PO; +CENTRUM SILVER1 EAC2 PO; +Cartia Xt240 MG PO; +DOCU100 PO; +Imdur60 MG PO; +LACT PO; +METO50ER PO; +PANTOPRAZOLE SO40 M2 PO; +Prednisone10 MG PO; +TORSE20 PO; +VANCOCIN HCL125 MG PO
[2019-05-04 19:05] LABS: Albumin, Blood 2.9 g/dL (3.4-5.0); Anion Gap 7 mmol/L (6-16); Blood Urea Nitrogen 118 mg/dL (8-24); Bun/Creatinine Ratio 52.7 (12.0-20.0); CO2, Blood 27 mmol/L (21-32); Calcium, Blood 8.5 mg/dL (8.5-10.1); Chloride, Blood 99 mmol/L (98-108); Creatinine, Blood 2.24 mg/dL (0.60-1.20); Glomerular Filtration Rate 30 (60-); Glucose, Blood 145 mg/dL (70-99); Magnesium, Blood 2.4 mg/dL (1.6-2.4); Phosphorus, Blood 5.6 mg/dL (2.5-4.9); Potassium, Blood 4.6 mmol/L (3.5-5.5); Sodium, Blood 133 mmol/L (136-145); Thyroxine (T4) 6.2 ug/dL (4.5-12.1); Uric Acid, Blood 6.5 mg/dL (3.5-7.2)
== END | disposition home or self-care (01) ==
LOC: LAB 17:37 → LAB SHORT 17:37
PROVIDERS: Internal Medicine Nephrology
DX: N18.3 Chronic kidney disease, stage 3 (moderate) (principal); D63.1 Anemia in chronic kidney disease; N25.81 Secondary hyperparathyroidism of renal origin; E78.00 Pure hypercholesterolemia, unspecified; E55.9 Vitamin D deficiency, unspecified; R80.9 Proteinuria, unspecified; R76.9 Abnormal immunological finding in serum, unspecified; R94.5 Abnormal results of liver function studies; R94.6 Abnormal results of thyroid function studies
CPT/HCPCS: 80069; 83735; 83970; 84436; 84443; 84550; 85018

== ENCOUNTER → 2019-05-08 | Outpatient (CLI) | payer MEDICARE, OTHER ==
[2019-05-08 18:33] LABS: Creatinine Urine 46.7 mg/dL (27.00-270.00); Protein, Urine Quantitative 9.9 mg/dL (0.0-11.9)
== END | disposition home or self-care (01) ==
LOC: LAB SHORT 08:00 → LAB 08:00
PROVIDERS: Internal Medicine Nephrology
DX: N18.3 Chronic kidney disease, stage 3 (moderate) (principal)
CPT/HCPCS: 81050; 82043; 82570; 84156

== ENCOUNTER → 2019-05-23 | Outpatient (CLI) | payer MEDICARE, OTHER ==
[2019-05-23 18:17] LABS: Albumin, Blood 2.8 g/dL (3.4-5.0); Anion Gap 9 mmol/L (6-16); Blood Urea Nitrogen 120 mg/dL (8-24); CO2, Blood 35 mmol/L (21-32); Calcium, Blood 8.8 mg/dL (8.5-10.1); Chloride, Blood 93 mmol/L (98-108); Creatinine, Blood 3.24 mg/dL (0.60-1.20); Glomerular Filtration Rate 19 (60-); Glucose, Blood 166 mg/dL (70-99); Phosphorus, Blood 4.7 mg/dL (2.5-4.9); Potassium, Blood 3.4 mmol/L (3.5-5.5); Sodium, Blood 137 mmol/L (136-145)
== END | disposition home or self-care (01) ==
LOC: LAB 16:56 → LAB SHORT 16:56
PROVIDERS: Internal Medicine Nephrology
DX: N18.3 Chronic kidney disease, stage 3 (moderate) (principal); D63.1 Anemia in chronic kidney disease
CPT/HCPCS: 80069; 85018

== ENCOUNTER → 2019-05-29 | Outpatient (CLI) | payer MEDICARE, OTHER | END | disposition home or self-care (01) | LOC: LAB SHORT 14:45 → LAB 14:45 | DX: I13.0 Hypertensive heart and chronic kidney disease with heart failure and stage 1 through stage 4 chronic kidney disease, or unspecified chronic kidney disease (principal); N18.3 Chronic kidney disease, stage 3 (moderate); I50.9 Heart failure, unspecified | CPT/HCPCS: 84132 ==

== ENCOUNTER → 2019-06-01 | Outpatient (CLI) | payer MEDICARE, OTHER ==
[2019-06-01 17:01] LABS: Albumin, Blood 2.8 g/dL (3.4-5.0); Anion Gap 6 mmol/L (6-16); Blood Urea Nitrogen 122 mg/dL (8-24); Bun/Creatinine Ratio 39.5 (12.0-20.0); CO2, Blood 38 mmol/L (21-32); Calcium, Blood 8.7 mg/dL (8.5-10.1); Chloride, Blood 90 mmol/L (98-108); Creatinine, Blood 3.09 mg/dL (0.60-1.20); Glomerular Filtration Rate 21 (60-); Glucose, Blood 215 mg/dL (70-99); Phosphorus, Blood 4.9 mg/dL (2.5-4.9); Sodium, Blood 134 mmol/L (136-145)
== END | disposition home or self-care (01) ==
LOC: LAB SHORT 14:40 → LAB 14:40
PROVIDERS: Internal Medicine Nephrology
DX: I13.0 Hypertensive heart and chronic kidney disease with heart failure and stage 1 through stage 4 chronic kidney disease, or unspecified chronic kidney disease (principal); I50.9 Heart failure, unspecified; N18.9 Chronic kidney disease, unspecified; J44.1 Chronic obstructive pulmonary disease with (acute) exacerbation
CPT/HCPCS: 80069; 85018

== ENCOUNTER → 2019-06-07 | Outpatient (CLI) | payer MEDICARE, OTHER ==
[2019-06-07 17:02] LABS: Albumin, Blood 2.9 g/dL (3.4-5.0); Anion Gap 7 mmol/L (6-16); Blood Urea Nitrogen 119 mg/dL (8-24); Bun/Creatinine Ratio 36.3 (12.0-20.0); CO2, Blood 39 mmol/L (21-32); Chloride, Blood 90 mmol/L (98-108); Creatinine, Blood 3.28 mg/dL (0.60-1.20); Glomerular Filtration Rate 19 (60-); Glucose, Blood 148 mg/dL (70-99); Phosphorus, Blood 4.9 mg/dL (2.5-4.9); Potassium, Blood 3.2 mmol/L (3.5-5.5); Sodium, Blood 136 mmol/L (136-145)
== END | disposition home or self-care (01) ==
LOC: LAB 14:06 → LAB SHORT 14:06
PROVIDERS: Internal Medicine Nephrology
DX: N18.3 Chronic kidney disease, stage 3 (moderate) (principal); D63.1 Anemia in chronic kidney disease
CPT/HCPCS: 80069; 85018

== ENCOUNTER → 2019-06-14 | Outpatient (CLI) | payer MEDICARE, OTHER ==
[2019-06-14 19:37] LABS: BASOPHILS ABSOLUTE AUTO 0.05 K/mm3 (0.00-0.23); BASOPHILS PERCENT AUTO 0 % (0-2); EOSINOPHILS ABSOLUTE AUTO 0.09 K/mm3 (0.00-0.68); EOSINOPHILS PERCENT AUTO 1 % (0-6); Hematocrit 34.7 % (37.0-53.0); Hemoglobin 10.6 g/dL (13.5-17.5); IMMATURE GRAN PERCENT AUTO 2 % (0-1); LYMPHOCYTES ABSOLUTE AUTO 1.38 K/mm3 (0.84-5.20); LYMPHOCYTES PERCENT AUTO 12 % (21-46); MONOCYTES ABSOLUTE AUTO 0.88 K/mm3 (0.16-1.47); MONOCYTES PERCENT AUTO 7 % (4-13); Mean Corpuscular HGB 31.1 pg (26.0-34.0); Mean Corpuscular HGB Conc 30.5 g/dL (31.5-36.5); Mean Corpuscular Volume 102 fL (80-100); Mean Platelet Volume 10.3 fL (9.1-12.4); NEUTROPHILS ABSOLUTE AUTO 9.36 K/mm3 (1.96-9.15); NEUTROPHILS PERCENT AUTO 78 % (41-73); NRBC ABSOLUTE 0.05 K/mm3 (0.00-0.02); NRBC Auto 0.4 /100 WBC (0.0-0.2); Platelet Count 221 K/mm3 (150-400); RDW Coefficient Variation 17.4 % (11.7-14.2); RDW Standard Deviation 64.5 fL (35.1-46.3); Red Blood Cell Count 3.41 M/mm3 (4.30-5.90); White Blood Cell Count 11.96 K/mm3 (4.00-11.30)
[2019-06-14 19:46] LABS: Albumin, Blood 2.9 g/dL (3.4-5.0); Albumin/Globulin Ratio 0.7 (0.8-1.8); Bilirubin, Total 0.4 mg/dL (0.1-1.0); Bun/Creatinine Ratio 44.9 (12.0-20.0); Calcium, Blood 9.1 mg/dL (8.5-10.1); Creatinine, Blood 2.36 mg/dL (0.60-1.20); Globulin, Blood 4.3 g/dL (2.2-4.0); Phosphorus, Blood 4.7 mg/dL (2.5-4.9); Potassium, Blood 3.8 mmol/L (3.5-5.5); Total Protein, Blood 7.2 g/dL (6.4-8.2)
== END | disposition home or self-care (01) ==
LOC: LAB 17:02 → LAB SHORT 17:02
PROVIDERS: Internal Medicine Nephrology
DX: E87.6 Hypokalemia (principal); N18.9 Chronic kidney disease, unspecified; D63.1 Anemia in chronic kidney disease; R73.09 Other abnormal glucose
CPT/HCPCS: 80053; 83036; 84100; 84132; 85018; 85025

== ENCOUNTER → 2019-06-19 | Outpatient (CLI) | payer MEDICARE, OTHER ==
[2019-06-19 15:34] LABS: BASOPHILS ABSOLUTE AUTO 0.06 K/mm3 (0.00-0.23); BASOPHILS PERCENT AUTO 1 % (0-2); EOSINOPHILS ABSOLUTE AUTO 0.13 K/mm3 (0.00-0.68); EOSINOPHILS PERCENT AUTO 1 % (0-6); Hematocrit 32.7 % (37.0-53.0); Hemoglobin 10.3 g/dL (13.5-17.5); IMMATURE GRAN ABSOLUTE AUTO 0.14 K/mm3 (0.00-0.10); IMMATURE GRAN PERCENT AUTO 1 % (0-1); LYMPHOCYTES ABSOLUTE AUTO 1.31 K/mm3 (0.84-5.20); LYMPHOCYTES PERCENT AUTO 11 % (21-46); MONOCYTES ABSOLUTE AUTO 1.06 K/mm3 (0.16-1.47); MONOCYTES PERCENT AUTO 9 % (4-13); Mean Corpuscular HGB 31.7 pg (26.0-34.0); Mean Corpuscular HGB Conc 31.5 g/dL (31.5-36.5); Mean Corpuscular Volume 101 fL (80-100); Mean Platelet Volume 10.5 fL (9.1-12.4); NEUTROPHILS ABSOLUTE AUTO 8.87 K/mm3 (1.96-9.15); NEUTROPHILS PERCENT AUTO 77 % (41-73); Platelet Count 192 K/mm3 (150-400); RDW Coefficient Variation 17.9 % (11.7-14.2); RDW Standard Deviation 65.3 fL (35.1-46.3); Red Blood Cell Count 3.25 M/mm3 (4.30-5.90); White Blood Cell Count 11.57 K/mm3 (4.00-11.30)
[2019-06-19 15:44] LABS: Albumin, Blood 2.7 g/dL (3.4-5.0); Albumin/Globulin Ratio 0.7 (0.8-1.8); Bilirubin, Total 0.4 mg/dL (0.1-1.0); Bun/Creatinine Ratio 41.3 (12.0-20.0); Calcium, Blood 8.5 mg/dL (8.5-10.1); Creatinine, Blood 2.54 mg/dL (0.60-1.20); Globulin, Blood 3.8 g/dL (2.2-4.0); Potassium, Blood 3.6 mmol/L (3.5-5.5); Total Protein, Blood 6.5 g/dL (6.4-8.2)
== END | disposition home or self-care (01) ==
LOC: LAB 14:58 → LAB SHORT 14:58
PROVIDERS: Internal Medicine Nephrology
DX: E87.6 Hypokalemia (principal); I10 Essential (primary) hypertension
CPT/HCPCS: 80053; 85025

== ENCOUNTER → 2019-07-03 | Outpatient (CLI) | payer MEDICARE, OTHER ==
[~2019-07-03] MED LIST changes: +NEPRO CARB STE237 ML PO
[2019-07-03 19:38] LABS: BASOPHILS ABSOLUTE AUTO 0.04 K/mm3 (0.00-0.23); BASOPHILS PERCENT AUTO 0 % (0-2); EOSINOPHILS ABSOLUTE AUTO 0.15 K/mm3 (0.00-0.68); EOSINOPHILS PERCENT AUTO 2 % (0-6); Hematocrit 34.1 % (37.0-53.0); Hemoglobin 10.6 g/dL (13.5-17.5); IMMATURE GRAN ABSOLUTE AUTO 0.07 K/mm3 (0.00-0.10); IMMATURE GRAN PERCENT AUTO 1 % (0-1); LYMPHOCYTES ABSOLUTE AUTO 0.84 K/mm3 (0.84-5.20); LYMPHOCYTES PERCENT AUTO 9 % (21-46); MONOCYTES ABSOLUTE AUTO 0.86 K/mm3 (0.16-1.47); MONOCYTES PERCENT AUTO 9 % (4-13); Mean Corpuscular HGB 31.3 pg (26.0-34.0); Mean Corpuscular HGB Conc 31.1 g/dL (31.5-36.5); Mean Corpuscular Volume 101 fL (80-100); Mean Platelet Volume 10.9 fL (9.1-12.4); NEUTROPHILS PERCENT AUTO 80 % (41-73); NRBC ABSOLUTE 0.04 K/mm3 (0.00-0.02); NRBC Auto 0.4 /100 WBC (0.0-0.2); Platelet Count 166 K/mm3 (150-400); RDW Coefficient Variation 16.8 % (11.7-14.2); RDW Standard Deviation 61.5 fL (35.1-46.3); Red Blood Cell Count 3.39 M/mm3 (4.30-5.90); White Blood Cell Count 9.86 K/mm3 (4.00-11.30)
[2019-07-03 20:10] LABS: Albumin, Blood 2.6 g/dL (3.4-5.0); Anion Gap 10 mmol/L (6-16); Blood Urea Nitrogen 137 mg/dL (8-24); Bun/Creatinine Ratio 42.3 (12.0-20.0); CO2, Blood 31 mmol/L (21-32); Calcium, Blood 8.5 mg/dL (8.5-10.1); Chloride, Blood 93 mmol/L (98-108); Creatinine, Blood 3.24 mg/dL (0.60-1.20); Glomerular Filtration Rate 19 (60-); Glucose, Blood 186 mg/dL (70-99); Phosphorus, Blood 7.5 mg/dL (2.5-4.9); Potassium, Blood 3.5 mmol/L (3.5-5.5); Sodium, Blood 134 mmol/L (136-145)
== END | disposition home or self-care (01) ==
LOC: LAB SHORT 18:12 → LAB 18:12
PROVIDERS: Internal Medicine Nephrology
DX: N18.3 Chronic kidney disease, stage 3 (moderate) (principal); D63.1 Anemia in chronic kidney disease
CPT/HCPCS: 80069; 85025

== ENCOUNTER 2019-07-05 20:55 | Inpatient (IN) | payer MEDICARE, OTHER ==
[~2019-07-05] VITALS: Ht 180.3 cm; Wt 129.4 kg
[~2019-07-05 20:55] MED LIST changes: -Flonase 0.05% N16 GM PO; -Humalog100 UNIT/1 SC; +INSULIN LI100 UNIT/8 SC; -NEPRO CARB STE237 ML PO; +QVAR REDIHALE10.6 G3 INH; -QVAR REDIHALE10.6 GM INH; +XOPENEX0.63 MG/3 INH
[2019-07-05 21:24] LABS: Base Excess Venous 6.2 mmol/L; Bicarbonate Venous 29.4 mmol/L (24.0-30.0); PCO2 Venous 44.6 mmHg (38-42); PO2 Venous 104 mmHg (38-42); pH Blood Venous 7.44 (7.34-7.37)
[2019-07-05 21:27] LABS: BASOPHILS ABSOLUTE AUTO 0.02 K/mm3 (0.00-0.23); BASOPHILS PERCENT AUTO 0 % (0-2); EOSINOPHILS ABSOLUTE AUTO 0.05 K/mm3 (0.00-0.68); EOSINOPHILS PERCENT AUTO 1 % (0-6); Hematocrit 37.5 % (37.0-53.0); Hemoglobin 11.9 g/dL (13.5-17.5); IMMATURE GRAN PERCENT AUTO 1 % (0-1); LYMPHOCYTES ABSOLUTE AUTO 0.84 K/mm3 (0.84-5.20); LYMPHOCYTES PERCENT AUTO 8 % (21-46); MONOCYTES ABSOLUTE AUTO 0.76 K/mm3 (0.16-1.47); MONOCYTES PERCENT AUTO 7 % (4-13); Mean Corpuscular HGB 31.5 pg (26.0-34.0); Mean Corpuscular HGB Conc 31.7 g/dL (31.5-36.5); Mean Corpuscular Volume 99 fL (80-100); Mean Platelet Volume 11.3 fL (9.1-12.4); NEUTROPHILS ABSOLUTE AUTO 8.93 K/mm3 (1.96-9.15); NEUTROPHILS PERCENT AUTO 83 % (41-73); Platelet Count 138 K/mm3 (150-400); RDW Coefficient Variation 17.3 % (11.7-14.2); RDW Standard Deviation 62.6 fL (35.1-46.3); Red Blood Cell Count 3.78 M/mm3 (4.30-5.90)
[2019-07-05] MEDS ORDERED: ANORO ELLIPTA1 EAC1 INH (21:33)
[2019-07-05] MEDS ORDERED: Humulin N100 UNIT/1 SC (21:35)
[2019-07-05] MEDS ORDERED: NEPRO CARB STE237 ML PO (21:37)
[2019-07-05] MEDS ORDERED: METO2.5 PO (21:38)
[2019-07-05 22:02] LABS: PCO2 Arterial 45.3 mmHg (35-45); PO2 Arterial 78.4 mmHg (80-100); pH Blood Arterial 7.44 (7.35-7.45)
[2019-07-05 22:12] LABS: Albumin, Blood 2.8 g/dL (3.4-5.0); Albumin/Globulin Ratio 0.7 (0.8-1.8); Bilirubin, Total 0.6 mg/dL (0.1-1.0); Bun/Creatinine Ratio 46.7 (12.0-20.0); Calcium, Blood 8.5 mg/dL (8.5-10.1); Creatinine, Blood 2.91 mg/dL (0.60-1.20); Globulin, Blood 4.3 g/dL (2.2-4.0); Total Protein, Blood 7.1 g/dL (6.4-8.2)
[2019-07-05 22:17] LABS: Source, Urine Catheter
[2019-07-05 22:22] LABS: Bilirubin, Urine Neg (Neg); Blood, Urine 1+ (Neg); Glucose Qualitative, Urine Neg (Neg); Ketones, Urine Neg (Neg); Leukocyte Esterase, Urine Neg (Neg); Nitrite, Urine Neg (Neg); Protein, Urine Neg (Neg); Urobilinogen, Urine NORM (Normal)
[2019-07-05 22:25] LABS: Appearance, Urine Clear (Clear); Color, Urine Yellow (P-Yellow)
[2019-07-05 22:30] LABS: U Amphetamine Screen Not Detected; U Barbituate Screen Not Detected; U Benzodiazapine Screen DETECTED; U Cocaine Screen Not Detected; U Methadone Screen Not Detected; U Methamphetamine Screen Not Detected; U Opiates Screen Not Detected; U Phencyclidine Screen Not Detected
[2019-07-05 22:31] LABS: U Buprenorphine Screen Not Detected; U Cannabinoids Screen Not Detected; U Oxycodone Screen Not Detected; U Propoxyphene Screen Not Detected
[2019-07-05 22:34] LABS: Amorphous Light (0-Heavy); Bacteria Not Seen /hpf; Granular Casts 0-2 /lpf (0); Red Blood Cells, Urine 0-2 /hpf (0-2); Squamous Epithelial Cells Rare /hpf (Few); White Blood Cells, Urine Not Seen /hpf (0-5)
[2019-07-06 05:50] LABS: BASOPHILS ABSOLUTE AUTO 0.02 K/mm3 (0.00-0.23); BASOPHILS PERCENT AUTO 0 % (0-2); EOSINOPHILS ABSOLUTE AUTO 0.02 K/mm3 (0.00-0.68); EOSINOPHILS PERCENT AUTO 0 % (0-6); Hematocrit 37.9 % (37.0-53.0); IMMATURE GRAN PERCENT AUTO 1 % (0-1); LYMPHOCYTES ABSOLUTE AUTO 0.73 K/mm3 (0.84-5.20); LYMPHOCYTES PERCENT AUTO 7 % (21-46); MONOCYTES ABSOLUTE AUTO 0.92 K/mm3 (0.16-1.47); MONOCYTES PERCENT AUTO 8 % (4-13); Mean Corpuscular HGB 31.7 pg (26.0-34.0); Mean Corpuscular HGB Conc 31.7 g/dL (31.5-36.5); Mean Corpuscular Volume 100 fL (80-100); Mean Platelet Volume 10.5 fL (9.1-12.4); NEUTROPHILS ABSOLUTE AUTO 9.39 K/mm3 (1.96-9.15); NEUTROPHILS PERCENT AUTO 84 % (41-73); NRBC ABSOLUTE 0.03 K/mm3 (0.00-0.02); NRBC Auto 0.3 /100 WBC (0.0-0.2); Platelet Count 137 K/mm3 (150-400); RDW Coefficient Variation 17.5 % (11.7-14.2); RDW Standard Deviation 62.6 fL (35.1-46.3); Red Blood Cell Count 3.78 M/mm3 (4.30-5.90); White Blood Cell Count 11.18 K/mm3 (4.00-11.30)
[2019-07-06 05:58] LABS: Albumin, Blood 2.8 g/dL (3.4-5.0); Albumin/Globulin Ratio 0.7 (0.8-1.8); Bilirubin, Total 0.6 mg/dL (0.1-1.0); Bun/Creatinine Ratio 46.9 (12.0-20.0); Calcium, Blood 8.4 mg/dL (8.5-10.1); Creatinine, Blood 2.92 mg/dL (0.60-1.20); Globulin, Blood 3.9 g/dL (2.2-4.0); Potassium, Blood 4.2 mmol/L (3.5-5.5); Total Protein, Blood 6.7 g/dL (6.4-8.2)
--- NOTE | 2019-07-06 08:24 | NUR ---
RN Summary: Patient was admitted via stretcher to rm 350 from the ED. Pt is confused, he is able to tell us his first name but that is all. Pt has bruises all over body from plavix. His arms ar the worst. Pt has no redness on coccyx. Pt comes with a roberson that was placed in the ED. Urine is bloody. came up to room, brought home cpap and home meds that are not formulary. Pt did leave CPAP on and off, needed to be put on frequently. Pt on pulse ox and O2 sats mid 90's on 2 liters. Pt is repositioned several times. Pt remains confused, does follow comands but then forgets.Call light in reach,doesnt know how to use. Pt is bedbound at home. Report to Haely ALVARADO.
--- NOTE | 2019-07-06 10:59 | NUR ---
1040 SPOKE WITH CONCERNING PTS CONDITION. INQUIRED ABOUT HIS CODE STATUS WHICH WAS LISTED FULL CODE. SHE STATED THAT HIS WISHES WERE DNI. THIS NURSE WENT OVER WHAT THAT MEANT AND SHE WAS IN COMPLETE AGREEANCE . THIS NURSE CONTACTED THE DOCTOR AND NOTIFIED HER OF THIS CHANGE. PT IS VERY UP THAT SHE CANNOT COME UP AND BE WITH HIM AT THIS TIME. THIS NURSE EXPLAINED THE COVID REGULATIONS AND TOLD HER IF PT WERE ON COMFORT CARE OR HOSPICE FAMILY COULD COME IN. PT REMAINS RESPONSIVE ONLY TO PAIN . UNABLE TO GIVE MEDS. PT CONTINUES TO HAVE HEMATURA WHICH STATES IS FROM THE LEVINE BEING INSERTED. SHE DID NOT WANT THE LEVINE DUE TO HIS ENLARGED PROSTATE AND IS ANGRY WITH ER FOR PUTTING IT IN WITHOUT HER BEING CONSULTED.
[2019-07-06 13:20] LABS: International Normalized Ratio 1.21; Prothrombin Time Results 12.8 Sec (9.7-11.5)
[2019-07-06 15:36] LABS: Base Excess Venous 3.8 mmol/L; Bicarbonate Venous 27.7 mmol/L (24.0-30.0); PCO2 Venous 37.3 mmHg (38-42); PO2 Venous 108 mmHg (38-42); pH Blood Venous 7.48 (7.34-7.37)
--- NOTE | 2019-07-06 18:00 | NUR ---
PT REMAINS OBTUNDED AND ONLY RESPONDS TO DISCOMFORT AND REPOSITIONING. HE HAS TAKEN NOTHING BY MOUTH THIS SHIFT. DR LAWRENCE ON BOARD PER FAMILY REQUEST . PT HAS HEMATURIA IN LEVINE .
--- NOTE | 2019-07-06 20:55 | NUR ---
LACTULOSE ENEMA LACTULOSE ENEMA GIVEN. PT TOLERATED WELL. LARGE AMOUNT OF FORMED BROWN STOOL OUT AT END OF ENEMA. DR. LAWRENCE CALLED TO CHECK ON PT. INFORMED MD THAT ENEMA WAS GIVEN. PT WOKE DURING THE ENEMA MORE THAN HE HAD SO FAR THIS EVENING. ANSWERING A COUPLE SIMPLE YES OR NO QUESTIONS AND THEN FALLING BACK ASLEEP. CONTINUES TO BE DIFFICULT TO WAKE.
--- NOTE | 2019-07-07 01:06 | NUR ---
AMMONIA LEVELS DR. LAWRENCE CALLED AND ORDERED A STAT AMMONIA LEVEL AFTER FIRST LACTULOSE ENEMA WAS GIVEN. LEVEL CAME BACK AT [address] LAWRENCE WAS CONCERNED THAT THIS WAS NOT ACCURATE AND ORDERED A REDRAW OF THE STAT AMMONIA. REDRAW CAME BACK 62. NEW ORDER FOR SECOND LACTULOSE ENEMA. SECOND ENEMA GIVEN. PT TOLERATED WELL. PT'S MENTATION REMAINS UNCHANGED. RESPONDS TO PAINFUL STIMULI BUT WILL NOT REPLY TO QUESTIONS ASKED.
[2019-07-07 04:41] LABS: Hematocrit 38.1 % (37.0-53.0); Hemoglobin 11.8 g/dL (13.5-17.5)
--- NOTE | 2019-07-07 04:47 | NUR ---
SHIFT SUMMARY PT SLIGHTLY MORE AWAKE LATER IN THE SHIFT BUT CONTINUES TO BE NEARLY UNRESPONSIVE. ONLY RESPONDING TO PAINFUL STIMULI. MOANS AND SAYS "OW" WHEN TURNING OR CHANGING PATIENT. OTHERWISE PT JUST SLEEPS WHEN LEFT ALONE. DIFFICULT TO WAKE AT TIMES. LACTULOSE ENEMA GIVEN X 2 THIS EVENING. SEE PREVIOUS NOTES. WITH TWO SMALL BM'S AND ONE LARGE BM FOLLOWING. LEVINE CATHETER PATENT AND DRAINING. PT'S URINE VERY DARK WITH SOME RED TO IT. BRUISING SCATTERED THROUGHOUT PT'S BODY. TELEMETRY READING SR W/ A BBB OCCASSIONALLY PACED AT 99. PT ROLLS TO LEFT SIDE OF BODY EVEN WHEN ATTEMPTING TO TURN OTHERWISE. HOME BIPAP ON THROUGHOUT THE NIGHT. CONTINOUS OX ON. VITAL SIGNS STABLE. WILL CONTINUE TO MONITOR AND REPORT TO DAY RN.
[2019-07-07 05:08] LABS: Alanine Aminotransfer (ALT/SGP 24 U/L (12-78); Albumin, Blood 2.8 g/dL (3.4-5.0); Albumin/Globulin Ratio 0.7 (0.8-1.8); Alk Phos 98 U/L (50-136); Anion Gap 13 mmol/L (6-16); Aspartate Aminotrans (AST/SGOT 22 U/L (12-37); Bilirubin, Direct 0.5 mg/dL (0.0-0.3); Blood Urea Nitrogen 134 mg/dL (8-24); Bun/Creatinine Ratio 46.4 (12.0-20.0); CO2, Blood 28 mmol/L (21-32); Calcium, Blood 8.8 mg/dL (8.5-10.1); Chloride, Blood 95 mmol/L (98-108); Creatinine, Blood 2.89 mg/dL (0.60-1.20); Globulin, Blood 3.8 g/dL (2.2-4.0); Glomerular Filtration Rate 22 (60-); Glucose, Blood 117 mg/dL (70-99); Magnesium, Blood 2.8 mg/dL (1.6-2.4); Phosphorus, Blood 7.3 mg/dL (2.5-4.9); Potassium, Blood 4.1 mmol/L (3.5-5.5); Sodium, Blood 136 mmol/L (136-145); Total Protein, Blood 6.6 g/dL (6.4-8.2)
[2019-07-07 05:10] LABS: Bilirubin, Indirect 0.4 mg/dL (0.1-0.7); Bilirubin, Total 0.9 mg/dL (0.1-1.0)
--- NOTE | 2019-07-07 07:31 | NUR ---
RECEIVED ORDER FOR ONE TIME LACTULOSE TN AND REPEAT AMMONIA LEVELS @ [address] LAWRENCE VERBALLY.
--- NOTE | 2019-07-07 07:39 | NUR ---
REMOTE MONITORING THIS RN VERIFIED WITH ALEXANDER Brown THAT REMOTE MONITORING IS ON FOR THIS PATIENT
--- NOTE | 2019-07-07 10:33 | NUR ---
Spiritual care visit conducted. Patient's spouse, Marleny, called me through the [employer] call center and was quit emotional on the phone. She stated that her is dying that "they" are recommending hospice and that she needs to be by his side. I provided a calming voice and prayer for Marleny on the phone. Marleny asked that I would visit patient and give him a message for her and pray with him. I visited patient who was lying on his side and alert. I gave patient the message from Marleny and provided prayer. Patient did not answer any questions unless he could answer with yes or no. Patient did not have a message back for Marleny but he perked up with the message and the prayer. I also talked with Sterling, Nursing Health Social Work Professor, who checked into patient's condition and she explained to me that patient is not imminent and is, in fact improved this day and so Civid-19 restrictions still apply and no visit will be possible. I called Marleny and told her about patient's condition and then Marleny stated that she will now not talk to hospital staff about hospice and that he is either dying or he is not. I tried to explain about that one day does not make a trend and that his overall condition is as has been prior explained to her. Marleny asked that I continue to visit patient daily and pray with him. I told her that I would do so.
--- NOTE | 2019-07-07 16:25 | NUR ---
CATHETER REPLACED REMOVED PREVIOUS CATHETHER AND REPLACED WITH NEW ONE D/T CONCERNS OF POSSIBLE CLOTS PREVENTING DRAINAGE. INTERVENTIONS COMPLETED PRIOR TO DECISION TO REMOVE ADN REPLACE LEVINE WERE FLUSHING CATHETER AND BLADDER SCANNING. IV INFUSION WAS 800CC, OUTPUT SO FAR IS 350. URINE IS BURGUNDY WITH CLOTS. DR. SALAZAR AWARE AND GAVE ORDER TO REPLACE CATHETER.
--- NOTE | 2019-07-07 16:53 | NUR ---
DISCUSSED CONCERNS ABOUT THE POSSIBILITY OF CLOTS PREVENTING URINARY DRAINAGE WITH DR. LAWRENCE. ORDER RECEIVED FOR BLADDER US.
--- NOTE | 2019-07-07 18:15 | NUR ---
Shift Summary A/O to self and family. More alert today, answering one to two word questions, following directions, and eating when DELI DEPARTMENT MANAGER assisted with meal. Patient requires assistance with PO intake. Stools are loose, brown, and small x 2 this shift, incontinent. US bladder completed, per US tech, bladder is empty. The has been updated with patient's status. Patient denies pain. CPAP on for most of the day, patient tolerated well and respirations are equal and unlabored, though shallow, 2L bled into CPAP. Saturations > 93%. Baird is patent and draining. Patient is a max assist and requires assistance with turning and repositioning. Will continue to monitor.
--- NOTE | 2019-07-07 19:36 | NUR ---
DR. LAWRENCE CALLED REQUESTING STAT AMMONIA LEVEL AND CALL HIM W/RESULTS. NOTED.
--- NOTE | 2019-07-08 03:59 | NUR ---
EDEMA IN BLE AND IN ABD. BEGINNING TO HAVE A PRODUCTIVE SOUNDING COUGH. RHONCHI IN R UPPER AND MID LOBE. EXPIRATORY WHEEZE AUSCULTATED B. PT RESTLESS TONIGHT. REPOSITIONED FOR EASE OF RESPIRATIONS. 02 SATS REMAIN WNL. WEARING CPAP FOR MUCH OF THE NIGHT BUT HAS REMOVED IT SEVERAL TIMES. PT IS MORE ALERT TONIGHT AND DRINKING FLUIDS UPON REQUEST. CALL TO HOSPITALIST DR. KILLIAN. ORDER RECEIVED TO D/C IV FLUIDS. NOTED.
[2019-07-08 04:55] LABS: Hematocrit 38.3 % (37.0-53.0)
--- NOTE | 2019-07-08 05:22 | NUR ---
SHIFT SUMMARY: VSS. AFEB. PT HR REMAINS TACHYCARDIC. TELE SHOWING BBB W/HR 104. 02 SATS HAVE REMAINED WNL TONIGHT. PT ON CONT BIOX. WEARING CPAP THROUGH MUCH OF THE NIGHT. SLEEPING W/HOB ELEVATED FOR COMFORT. SLEPT MINIMALLY TONIGHT. PT IS MORE ALERT AND RESTLESS- MOSTLY UNCOMFORTABLE, NO DISTRESS. TYLENOL ADMINISTERED PER ORDERS FOR GENERAL DISCOMOFORT. HELPED SOME. TURNING INDEPENDENTLY IN BED AND BECOMES CAUGHT UP IN LINES AND TUBES AND GOWN. FC PATENT. WAS DRAINING DEEP RED COLORED URINE AT START OF SHIFT, HAS PROGRESSIVELY LIGHTENED TO A PINK THE NIGHT PROGRESSED. PT IS COMMUNICATIVE. MAKES NEEDS KNOWN. STILL DEMONSTRATING SOME CONFUSION IN HIS ACTION AND CONVERSATIONS. BED ALARM ON, BED LOW, CALL BUTTON IN REACH. WILL CONT TO MONITOR.
[2019-07-08 05:35] LABS: Albumin, Blood 2.9 g/dL (3.4-5.0); Anion Gap 13 mmol/L (6-16); Blood Urea Nitrogen 141 mg/dL (8-24); Bun/Creatinine Ratio 51.8 (12.0-20.0); CO2, Blood 26 mmol/L (21-32); Calcium, Blood 8.6 mg/dL (8.5-10.1); Chloride, Blood 99 mmol/L (98-108); Creatinine, Blood 2.72 mg/dL (0.60-1.20); Glomerular Filtration Rate 24 (60-); Glucose, Blood 182 mg/dL (70-99); Magnesium, Blood 2.8 mg/dL (1.6-2.4); Phosphorus, Blood 6.3 mg/dL (2.5-4.9); Potassium, Blood 3.7 mmol/L (3.5-5.5); Sodium, Blood 138 mmol/L (136-145)
--- NOTE | 2019-07-08 13:40 | NUR ---
Spiritual care visit conducted. Patient shows great improvement from prior day. Patient is more conversive and more aware of place and person. Patient tells me about his family, his marjan and his medical issues. I listen empathically and provide prayer. Patient responds well and displays evidence of an elevated mood. I call patient's spouse, Marleny and inform her that I provided prayer for patient upon her request. I will continue to remain available to patient and family.
--- NOTE | 2019-07-08 14:21 | NUR ---
DISCUSSED WITH DR. SALAZAR RE CHANGING BLOOD GLUCOSE CHECKS TO [facility] NOW THAT PATIENT IS COHERENT AND TAKING PO ADEQUATELY. MADE DR. SALAZAR AWARE OF PATIENT C/O R SHOULDER PAIN. MD WILL PLACE ORDERS.
--- NOTE | 2019-07-08 17:54 | NUR ---
Shift Summary A/Ox3, mentation has improved some. Still has moments of confusion. [place]. Tele: Paced Aflutter 102. Wore CPAP for most of the day. Desaturated with PT/OT sessions down to mid 80's. Oxygen rebounded quickly. C/O chronic R shoulder pain. This RN notified Dr. Simon. No order for pain thus far. Baird is patent and draining clear reddish color with microclots. This RN has been in touched with (Marleny) and even help patient call . Continues to tolerate PO intake well, only requiring set up. Tremors noted in R hand, pt states normal. No bowel movements today despite multiple doses of lactulose. Using call light inappropriately at times, but is able to make needs known either through call light use or verbally calling out. No other acute concerns. Will continue to monitor.
--- NOTE | 2019-07-08 18:04 | NUR ---
NO BM Notified Skyler WALLACE no production of BM this shift despite many doses of Lactulose. No new orders.
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
[2019-07-09 05:12] LABS: Hematocrit 37.6 % (37.0-53.0); Hemoglobin 11.7 g/dL (13.5-17.5)
[2019-07-09 05:35] LABS: Albumin, Blood 2.8 g/dL (3.4-5.0); Anion Gap 9 mmol/L (6-16); Blood Urea Nitrogen 130 mg/dL (8-24); Bun/Creatinine Ratio 52.2 (12.0-20.0); CO2, Blood 30 mmol/L (21-32); Calcium, Blood 8.4 mg/dL (8.5-10.1); Chloride, Blood 98 mmol/L (98-108); Creatinine, Blood 2.49 mg/dL (0.60-1.20); Glomerular Filtration Rate 26 (60-); Glucose, Blood 196 mg/dL (70-99); Magnesium, Blood 2.6 mg/dL (1.6-2.4); Phosphorus, Blood 5.5 mg/dL (2.5-4.9); Potassium, Blood 3.6 mmol/L (3.5-5.5); Sodium, Blood 137 mmol/L (136-145)
--- NOTE | 2019-07-09 05:35 | NUR ---
HOSPITALIST CONTACT: LATE ENTRY FOR 399. TELE RHYTHM NOTED TO HAVE CHANGED TO ATRIAL FLUTTER, 102 BPM YESTERDAY AND TONIGHT. THIS IS CHANGE FROM PREVIOUS RHYTHM DOCUMENTED PACED BBB. NOTIFIED HOSPITALIST DR. CLAUDE SUH TO MONITOR PER .
--- NOTE | 2019-07-09 11:40 | NUR ---
Spiritual care visit conducted. Patient is alert and more upbeat today. Patient tells me he feels better than yesterday and would like to go home now. I provide a calming presence and prayer. Patient responds well and voices appreciation for the visit.
--- NOTE | 2019-07-09 16:10 | NUR ---
CIPAP CLEANED WITH PATIENTS HOME SOCLEAN MACHINE.
--- NOTE | 2019-07-09 16:26 | NUR ---
ALERT TO SELF AND FAMILY. VERY CONFUSED. TALKING INTO PHONE AND NOONE ON OTHER END. HE HAS TALKED TO HIS MULTIPLE TIMES STATING TO HER " THEY TOLD ME YOU ." THIS RN HAS TALKED TO HIM MULTIPLE TIMES TO ASSURE HIM NOONE SAID THAT. NEEDS HELP WITH MEALS. VERY FRAGILE SKIN WITH 2 SKIN TEARS. ECCHYMOTIC T/O. ON CPAP MOST OF DAY EXCEPT WHEN MACHINE BEING CLEANED. PER HE LEAVES CPAP ON ALL DAY AND PER HER WANTED HIM TO. SLEEPING MOST OF DAY. TM
--- NOTE | 2019-07-10 05:00 | NUR ---
84 [place] [facility] [place] continues with altered LOC confusion. He uses home bipap but refused to wear more than a few hours tonight. PT had high ammonia level labs drawn for rt UE powerglide this AM. PT has removed several IVs & he was able to remove coban protective dressing several times depite taping coban. Stockinette applied after fluff & then coban & PT has not removed dressing. PT has garbled speech, poor historian. PT cooperative with lactulose & had 3 bowel movements this shift. Hx of lung cancer, rt lower lobectomy. HAs [employer] monitor, o2 3 NC applied due to sats mid 80's on room air. Sat 98%. Spouse Marleny called & updated. PT does not use call celestin, poor historian, denies pacemaker than says he has had pacer x 16 years. Oral suction several times to maintain airway.
[2019-07-10 05:04] LABS: Hematocrit 39.6 % (37.0-53.0)
[2019-07-10 05:24] LABS: Anion Gap 10 mmol/L (6-16); Blood Urea Nitrogen 129 mg/dL (8-24); Bun/Creatinine Ratio 51.4 (12.0-20.0); CO2, Blood 31 mmol/L (21-32); Calcium, Blood 8.4 mg/dL (8.5-10.1); Chloride, Blood 98 mmol/L (98-108); Creatinine, Blood 2.51 mg/dL (0.60-1.20); Glomerular Filtration Rate 26 (60-); Glucose, Blood 205 mg/dL (70-99); Magnesium, Blood 2.7 mg/dL (1.6-2.4); Phosphorus, Blood 6.2 mg/dL (2.5-4.9); Potassium, Blood 3.8 mmol/L (3.5-5.5); Sodium, Blood 139 mmol/L (136-145)
--- NOTE | 2019-07-10 16:29 | NUR ---
SHIFT SUMMARY PATIENT PAINFUL WITH MOVEMENT, TYLENOL GIVEN. PATIENT ON 3L/NC OR BIPAP MAINTAINING OXYGEN SATURATION ABOVE 92%. PATIENT WORKED WITH PT/OT TODAY. PATIENT UP IN CHAIR BRIEFLY TODAY. PATIENT TWO MAX STAND PIVOT BACK TO BED. PATIENT HAVING FREQUENT LACTULOSE STOOLS. PATIENT'S DROPPED OFF HIS LAPTOP, PHONE, AND GLASSES. CALL LIGHT IN REACH.
--- NOTE | 2019-07-11 03:09 | NUR ---
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 Held HS dose due to multiple loose stools earlier. Several brown loose stools on this shift. On bedpan several times. Very poor oral intake with sips water taken only. Using bipap with staff assist to apply or oxygen via NC as per baseline. Spoke with Marleny about bringing crestor as pharmacy has as PT's own med. She has supplied eye rx for glacoma. Multiple allergies verified with Marleny. Pt continues to be withdrawn & has difficulty with conversation. PT had roberson placed in ER & has hx of hematuria & clots & he has same with bloody urine drained this AM 200 ml with roberson intermittantly leaking. PT has stool sent yesterday for CDIFF hx of chronic CDIFF on oral vanco Q 3 days per Infectious disease. Placed in contact enteric precautions & await CDIFF results. Chest xray showed bilat pleural effusions & bilat pneumonia improving since Mar. Pain in penis & bladder with movement of roberson. Verified pacemaker placement & underlying rythm with who says 100% paced & Afib baseline. says he has been too obtunded to eat & she had been withholding oral intake at home to decrease aspiration risk. Will update DR on continued hematuria, bilat pneumonia improving & poor oral intake. 2 max assist for bed positioning toileting & not out of bed this shift. PT continues to remove IV wraps intermittantly. He does not use call celestin. 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
--- NOTE | 2019-07-11 03:51 | NUR ---
PT hard of hearing but able to communicate. Withdrawn with intermittant sensical speech. Educated PT & on plan of care.
[2019-07-11 05:55] LABS: BASOPHILS ABSOLUTE AUTO 0.02 K/mm3 (0.00-0.23); BASOPHILS PERCENT AUTO 0 % (0-2); EOSINOPHILS ABSOLUTE AUTO 0.03 K/mm3 (0.00-0.68); EOSINOPHILS PERCENT AUTO 0 % (0-6); Hematocrit 41.2 % (37.0-53.0); Hemoglobin 12.3 g/dL (13.5-17.5); IMMATURE GRAN ABSOLUTE AUTO 0.06 K/mm3 (0.00-0.10); IMMATURE GRAN PERCENT AUTO 0 % (0-1); LYMPHOCYTES ABSOLUTE AUTO 0.81 K/mm3 (0.84-5.20); LYMPHOCYTES PERCENT AUTO 5 % (21-46); MONOCYTES ABSOLUTE AUTO 1.39 K/mm3 (0.16-1.47); MONOCYTES PERCENT AUTO 9 % (4-13); Mean Corpuscular HGB 31.4 pg (26.0-34.0); Mean Corpuscular HGB Conc 29.9 g/dL (31.5-36.5); NEUTROPHILS ABSOLUTE AUTO 14.09 K/mm3 (1.96-9.15); NEUTROPHILS PERCENT AUTO 86 % (41-73); NRBC ABSOLUTE 0.04 K/mm3 (0.00-0.02); NRBC Auto 0.2 /100 WBC (0.0-0.2); Platelet Count 105 K/mm3 (150-400); RDW Coefficient Variation 17.6 % (11.7-14.2); RDW Standard Deviation 67.4 fL (35.1-46.3); Red Blood Cell Count 3.92 M/mm3 (4.30-5.90)
[2019-07-11 06:01] LABS: Mean Corpuscular Volume 105 fL (80-100)
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
[2019-07-11 06:23] LABS: Albumin, Blood 2.9 g/dL (3.4-5.0); Albumin/Globulin Ratio 0.8 (0.8-1.8); Bun/Creatinine Ratio 50.2 (12.0-20.0); Calcium, Blood 8.8 mg/dL (8.5-10.1); Creatinine, Blood 2.37 mg/dL (0.60-1.20); Globulin, Blood 3.6 g/dL (2.2-4.0); Magnesium, Blood 2.7 mg/dL (1.6-2.4); Phosphorus, Blood 5.5 mg/dL (2.5-4.9); Potassium, Blood 3.6 mmol/L (3.5-5.5); Total Protein, Blood 6.5 g/dL (6.4-8.2)
--- NOTE | 2019-07-11 14:46 | NUR ---
Spiritual care visit conducted. Patient tells me about his family (his 2 daughter's and Marleny's son) and then patient went on a long story about working for the [employer] and how they are watching patient's room. We talk about patient's marjan and his which sounded more rooted in reality. I listen and provide prayer. Patient voices appreciation for the visit and the prayer. I will continue to remain available to patient and family.
--- NOTE | 2019-07-11 18:17 | NUR ---
SUMMARY PT SITTING UP IN BED EATING DINNER, PT MORE AWAKE TODAY THAN PREVIOUSLY, PT COMPLAINED ABOUT HIS CATHETER HURTING, PER DR COLEMAN WE REMOVED IT, PT WAS HAVING DARK RED COLORED URINE IN THE CATHETER AND IS NOW HAVING SMALL AMOUNTS OF INCONTINENT URINE WITH CLOTS IN IT, BLADDER SCAN DID NOT SHOW HE WAS RETAINING URINE AT THIS TIME, PT OFF AND ON HIS HOME BIPAP SEVERAL TIMES TODAY, PT WAS UP TO THE CHAIR WITH PHYSICAL THERAPY, LIFT WAS REQUIRED TO GET HIM BACK TO BED, PT HAS BEEN PLEASANT AND COOPERATIVE, USES HIS CALL LIGHT FREQUENTLY AND APPROPRIATELY, WILL CONT TO MONITOR
[2019-07-12 05:03] LABS: BASOPHILS ABSOLUTE AUTO 0.01 K/mm3 (0.00-0.23); BASOPHILS PERCENT AUTO 0 % (0-2); EOSINOPHILS ABSOLUTE AUTO 0.13 K/mm3 (0.00-0.68); EOSINOPHILS PERCENT AUTO 1 % (0-6); Hematocrit 38.3 % (37.0-53.0); Hemoglobin 11.7 g/dL (13.5-17.5); IMMATURE GRAN ABSOLUTE AUTO 0.06 K/mm3 (0.00-0.10); IMMATURE GRAN PERCENT AUTO 1 % (0-1); LYMPHOCYTES ABSOLUTE AUTO 0.81 K/mm3 (0.84-5.20); LYMPHOCYTES PERCENT AUTO 6 % (21-46); MONOCYTES ABSOLUTE AUTO 1.06 K/mm3 (0.16-1.47); MONOCYTES PERCENT AUTO 8 % (4-13); Mean Corpuscular HGB 31.9 pg (26.0-34.0); Mean Corpuscular HGB Conc 30.5 g/dL (31.5-36.5); Mean Corpuscular Volume 104 fL (80-100); Mean Platelet Volume 11.1 fL (9.1-12.4); NEUTROPHILS ABSOLUTE AUTO 10.72 K/mm3 (1.96-9.15); NEUTROPHILS PERCENT AUTO 84 % (41-73); NRBC ABSOLUTE 0.02 K/mm3 (0.00-0.02); NRBC Auto 0.2 /100 WBC (0.0-0.2); Platelet Count 107 K/mm3 (150-400); RDW Coefficient Variation 17.5 % (11.7-14.2); RDW Standard Deviation 66.4 fL (35.1-46.3); Red Blood Cell Count 3.67 M/mm3 (4.30-5.90); White Blood Cell Count 12.79 K/mm3 (4.00-11.30)
[2019-07-12 05:19] LABS: Albumin, Blood 2.7 g/dL (3.4-5.0); Anion Gap 10 mmol/L (6-16); Blood Urea Nitrogen 114 mg/dL (8-24); Bun/Creatinine Ratio 44.7 (12.0-20.0); CO2, Blood 30 mmol/L (21-32); Calcium, Blood 8.9 mg/dL (8.5-10.1); Chloride, Blood 97 mmol/L (98-108); Creatinine, Blood 2.55 mg/dL (0.60-1.20); Glomerular Filtration Rate 26 (60-); Glucose, Blood 234 mg/dL (70-99); Magnesium, Blood 2.8 mg/dL (1.6-2.4); Phosphorus, Blood 5.1 mg/dL (2.5-4.9); Potassium, Blood 3.5 mmol/L (3.5-5.5); Sodium, Blood 137 mmol/L (136-145)
--- NOTE | 2019-07-12 06:24 | NUR ---
PT able to void after roberson dc incontinent of large amt of urine & [address] Cross in to see PT this AM rx bumex 2 mg bid versus daily. Bladder scan for 0 post void residual. More alert able to carry ounb conversation use phone, feed salf. Used Bipap most of night.
--- NOTE | 2019-07-12 11:33 | NUR ---
Echocardiogram completed.
--- NOTE | 2019-07-12 15:08 | NUR ---
Spiritual care visit conducted. Patient is more clear and alert today. Patient follows conversation better and is quicker to respond to questions. Patient asks for prayer today and reaches out his hand to hold mine during prayer. I grab his hand and pray. Patient thanks me and tells me that a "man of God is always welcome here." After the visit, I call Marleny and inform her that I have visited patient everyday this week, as I told her I would, and I share with her about patient's condition and mood. She thanks me for the communication. I will continue to remain available to patient and family.
--- NOTE | 2019-07-12 17:09 | NUR ---
SUMMARY PT RESTING IN BED WITH HIS BIPAP ON TALKING ON HIS PHONE, PT HAS BEEN PLEASANT AND COOPERATIVE WITH CARE T/O THE DAY, USES HIS PHONE FREQUENTLY, ABLE TO TAKE HIS MEDS WHOLE WITH WATER, IN ATTENDS FOR INCONTINENCE, WORKED WITH PHYSICAL THERAPY TODAY, THEY RECOMMEND SNF, PT AND SPOUSE DO NOT WANT SNF DUE TO A BAD EXPERIENCE IN THE PAST AND WILL BE RESUMING HOME HEALTH WITH [facility] WHEN HE IS DISCHARGED, VSS, WILL CONT TO MONITOR
--- NOTE | 2019-07-13 05:43 | NUR ---
SHIFT SUMMARY PT HAS BEEN RESTLESS MOST OF THE NIGHT, USES CALL LIGHT FREQUENTLY. PT HAS URINARY FREQUENCY AND URGENCY. NEEDS ASSISTANCE WITH URINAL OFTEN T/O SHIFT. PT VOIDS VERY LITTLE AT A TIME UNDER 50CC. PT URINE STILL REMAINS RED, NO CLOTS SEEN. PT HAS HAD SOME INCONTINENT VOIDS ALSO WHICH SEEMS TO BE MORE THAN WHAT HE IS ABLE TO VOID IN THE URINAL. PT BLADDER SCANNED X1 ONE THIS SHIFT AND ONLY HAD 134 MLS IN BLADDER. PT A/OX3 BUT IS VERY FORGEFUL, AND LOSES AWARENESS OF TIME. PT REQUESTS BREAKFAST AT 0300. SPEECH AT TIMES IS NONSENSICAL. PT HAS HAD 2 BM'S THIS SHIFT, BOTH INCONTINENT. SOB WITH EXERTION. LUNG SOUNDS WITH EXPIRATORY WHEEZES. BREATHING TREATMENTS PER RT. NO ACUTE CHANGES TO REPORT OVERNIGHT. PT REFUSED AM LABS. LAB TO TRY AGAIN LATER. BED IN LOWEST POSITION, CALL LIGHT WITHIN REACH. WILL CONTINUE TO MONITOR AND REPORT TO ONCOMING RN.
[2019-07-13 10:00] LABS: BASOPHILS ABSOLUTE AUTO 0.01 K/mm3 (0.00-0.23); BASOPHILS PERCENT AUTO 0 % (0-2); EOSINOPHILS ABSOLUTE AUTO 0.17 K/mm3 (0.00-0.68); EOSINOPHILS PERCENT AUTO 2 % (0-6); Hemoglobin 11.1 g/dL (13.5-17.5); IMMATURE GRAN ABSOLUTE AUTO 0.09 K/mm3 (0.00-0.10); IMMATURE GRAN PERCENT AUTO 1 % (0-1); LYMPHOCYTES ABSOLUTE AUTO 0.64 K/mm3 (0.84-5.20); LYMPHOCYTES PERCENT AUTO 6 % (21-46); MONOCYTES ABSOLUTE AUTO 0.72 K/mm3 (0.16-1.47); MONOCYTES PERCENT AUTO 7 % (4-13); Mean Corpuscular HGB 32.2 pg (26.0-34.0); Mean Corpuscular HGB Conc 30.8 g/dL (31.5-36.5); Mean Corpuscular Volume 104 fL (80-100); Mean Platelet Volume 11.3 fL (9.1-12.4); NEUTROPHILS PERCENT AUTO 84 % (41-73); Platelet Count 105 K/mm3 (150-400); RDW Coefficient Variation 17.3 % (11.7-14.2); RDW Standard Deviation 66.6 fL (35.1-46.3); Red Blood Cell Count 3.45 M/mm3 (4.30-5.90); White Blood Cell Count 10.43 K/mm3 (4.00-11.30)
[2019-07-13 10:28] LABS: Albumin, Blood 2.5 g/dL (3.4-5.0); Anion Gap 8 mmol/L (6-16); Blood Urea Nitrogen 124 mg/dL (8-24); CO2, Blood 31 mmol/L (21-32); Calcium, Blood 8.4 mg/dL (8.5-10.1); Chloride, Blood 94 mmol/L (98-108); Creatinine, Blood 2.53 mg/dL (0.60-1.20); Glomerular Filtration Rate 26 (60-); Glucose, Blood 274 mg/dL (70-99); Magnesium, Blood 2.7 mg/dL (1.6-2.4); Phosphorus, Blood 4.1 mg/dL (2.5-4.9); Potassium, Blood 3.3 mmol/L (3.5-5.5); Sodium, Blood 133 mmol/L (136-145)
--- NOTE | 2019-07-13 16:06 | NUR ---
PATIENT HAS HAD AN UNEVENTFUL DAY, MORE ORIENTED AT TIMES THAN AT OTHER TIMES. HE CALLS APPROPRIATELY FOR STAFF ASSIST NEEDED. HE CONTINUES ON IV ABX WITHOUT S/SX OF ADVERSE REACTIONS NOTED OR REPORTED. PATIENT TAKES LACTULOSE PER EMAR WITH RESULTS. VITALS HAVE BEEN STABLE AND WNL. NO ACUTE CHANGES TO REPORT OF AT THIS TIME.
[2019-07-14 05:57] LABS: BASOPHILS ABSOLUTE AUTO 0.01 K/mm3 (0.00-0.23); BASOPHILS PERCENT AUTO 0 % (0-2); EOSINOPHILS ABSOLUTE AUTO 0.26 K/mm3 (0.00-0.68); EOSINOPHILS PERCENT AUTO 3 % (0-6); Hematocrit 36.4 % (37.0-53.0); Hemoglobin 11.1 g/dL (13.5-17.5); IMMATURE GRAN ABSOLUTE AUTO 0.09 K/mm3 (0.00-0.10); IMMATURE GRAN PERCENT AUTO 1 % (0-1); LYMPHOCYTES ABSOLUTE AUTO 0.89 K/mm3 (0.84-5.20); LYMPHOCYTES PERCENT AUTO 9 % (21-46); MONOCYTES ABSOLUTE AUTO 0.96 K/mm3 (0.16-1.47); MONOCYTES PERCENT AUTO 9 % (4-13); Mean Corpuscular HGB 31.7 pg (26.0-34.0); Mean Corpuscular HGB Conc 30.5 g/dL (31.5-36.5); Mean Corpuscular Volume 104 fL (80-100); Mean Platelet Volume 10.6 fL (9.1-12.4); NEUTROPHILS ABSOLUTE AUTO 8.21 K/mm3 (1.96-9.15); NEUTROPHILS PERCENT AUTO 79 % (41-73); Platelet Count 101 K/mm3 (150-400); RDW Coefficient Variation 17.3 % (11.7-14.2); RDW Standard Deviation 66.3 fL (35.1-46.3); White Blood Cell Count 10.42 K/mm3 (4.00-11.30)
[2019-07-14 06:26] LABS: Albumin, Blood 2.5 g/dL (3.4-5.0); Anion Gap 11 mmol/L (6-16); Blood Urea Nitrogen 130 mg/dL (8-24); Bun/Creatinine Ratio 50.4 (12.0-20.0); CO2, Blood 28 mmol/L (21-32); Calcium, Blood 8.2 mg/dL (8.5-10.1); Chloride, Blood 96 mmol/L (98-108); Creatinine, Blood 2.58 mg/dL (0.60-1.20); Glomerular Filtration Rate 25 (60-); Glucose, Blood 197 mg/dL (70-99); Magnesium, Blood 2.7 mg/dL (1.6-2.4); Potassium, Blood 3.6 mmol/L (3.5-5.5); Sodium, Blood 135 mmol/L (136-145)
--- NOTE | 2019-07-14 06:43 | NUR ---
SHIFT SUMMARY PATIENT ALERT AND ORIENTED WITH OCCASIONAL CONFUSION. PATIENT WORE CPAP OVERNIGHT. PATIENT REPOSITIONED EVERY 2 HOURS. POWERGLIDE PATENT AND FLUSHED. BED IN LOWEST POSITION WITH WHEELS LOCKED AND ALARM ON. CALL LIGHT WITHIN REACH. REPORT GIVEN TO ONCOMING RN.
--- NOTE | 2019-07-14 19:13 | NUR ---
SHIFT SUMMARY. PT PLEASANT, INTERMITTENT CONFUSION, REORIENTS EASILY. PT DENIES PAIN, N/V. PT REPORTS SOB WITH EXERTION, RECOVERS WELL. PT USES BIPAP DURING MOST OF SHIFT, INTERMITTENTLY SLEEPING. 2L O2 NC WHEN EATING. PT'S CALLED TWICE, UPDATED PER PT REQUEST. BUMEX INCREASED BY DR. LAWRENCE. NO OTHER CHANGES OR CONCERNS.
[2019-07-15 05:28] LABS: Hematocrit 37.2 % (37.0-53.0); Hemoglobin 11.6 g/dL (13.5-17.5)
[2019-07-15 06:08] LABS: Albumin, Blood 2.6 g/dL (3.4-5.0); Anion Gap 11 mmol/L (6-16); Blood Urea Nitrogen 126 mg/dL (8-24); Bun/Creatinine Ratio 48.1 (12.0-20.0); CO2, Blood 28 mmol/L (21-32); Calcium, Blood 8.5 mg/dL (8.5-10.1); Chloride, Blood 96 mmol/L (98-108); Creatinine, Blood 2.62 mg/dL (0.60-1.20); Glomerular Filtration Rate 25 (60-); Glucose, Blood 145 mg/dL (70-99); Magnesium, Blood 2.6 mg/dL (1.6-2.4); Phosphorus, Blood 4.1 mg/dL (2.5-4.9); Potassium, Blood 3.9 mmol/L (3.5-5.5); Sodium, Blood 135 mmol/L (136-145)
--- NOTE | 2019-07-15 07:07 | NUR ---
SHIFT SUMMARY PATIENT CONFUSED OVERNIGHT. DID NOT GET MUCH SLEEP. HAS BEEN REPORTING HAVING PAIN UPON URINATION. BED IN LOWEST POSITION WITH WHEELS LOCKED AND ALARM ON. CALL LIGHT WITHIN REACH. REPORT GIVEN TO ONCOMING RN.
--- NOTE | 2019-07-15 17:36 | NUR ---
SHIFT SUMMARY. GENERALIZED EDEMA HAS INCREASED FROM YESTERDAY'S ASSESSMENT. PT CONTINUES WITH LOW URINE OUTPUT DURING AM. DR. LAWRENCE CHANGED DIURETIC FROM BUMEX TO LASIX, PT THEN HAD LARGE INCONTINENT VOID. PT DENIES PAIN, N/V. PT CONTINUES WITH SOB WITH EXERTION AND LOWERING HOB. PT ON BIPAP MOST OF SHIFT, HE REPORTS THAT HE IS ON IT ALMOST CONTINUOUSLY AT HOME, PT ON 2L O2 NC WITH MEALS. NO OTHER CHANGES OR CONCERNS.
--- NOTE | 2019-07-15 19:20 | NUR ---
ASSUMED CARE; VINCENZO IS AOX2 WITH PERIODS OF CONFUSION. HE DOES HAVE OCCATIONAL SLURRING OF HIS SPEECH. LUNG SOUNDS ARE DIMINISHED THROUGHOUT, DENIES SOB, OR COUGH. EDEMA NOTED FROM TOES TO MID CHEST 3+. ENCOURAGED HIM TO MOVE MORE OFTEN. DENIES CHEST PAIN, NAUSEA, HEADACHE OR ANY NEEDS AT THIS TIME. HE HAS SEVERAL BRUISES AND SCABS ALL OVER HIS BODY. SKIN IS FRAIL. REDNESS TO GROIN. ATTENDS ON, DRY AT THIS TIME. WILL CONTINUE TO MONITOR AND PROVIDE CARE. CALL LIGHT IN REACH.
--- NOTE | 2019-07-15 20:20 | NUR ---
ASSISTED CARD DEALER IN ATTENDS CHANGE. PATIENT HAS LOOSE YELLOW STOOL. BOTTOM RED. REPOSITIONED UP IN BED AND ON BACK. HAD TO TURN OXYGEN UP WHEN HE LAID DOWN TO PREVENT FROM DESATING.
[2019-07-16 04:40] LABS: BASOPHILS ABSOLUTE AUTO 0.02 K/mm3 (0.00-0.23); BASOPHILS PERCENT AUTO 0 % (0-2); EOSINOPHILS PERCENT AUTO 2 % (0-6); Hematocrit 37.2 % (37.0-53.0); Hemoglobin 11.6 g/dL (13.5-17.5); IMMATURE GRAN ABSOLUTE AUTO 0.09 K/mm3 (0.00-0.10); IMMATURE GRAN PERCENT AUTO 1 % (0-1); LYMPHOCYTES ABSOLUTE AUTO 0.95 K/mm3 (0.84-5.20); LYMPHOCYTES PERCENT AUTO 10 % (21-46); MONOCYTES ABSOLUTE AUTO 0.94 K/mm3 (0.16-1.47); MONOCYTES PERCENT AUTO 10 % (4-13); Mean Corpuscular HGB 32.2 pg (26.0-34.0); Mean Corpuscular HGB Conc 31.2 g/dL (31.5-36.5); Mean Corpuscular Volume 103 fL (80-100); Mean Platelet Volume 11.2 fL (9.1-12.4); NEUTROPHILS ABSOLUTE AUTO 7.16 K/mm3 (1.96-9.15); NEUTROPHILS PERCENT AUTO 77 % (41-73); Platelet Count 113 K/mm3 (150-400); RDW Coefficient Variation 16.6 % (11.7-14.2); RDW Standard Deviation 63.5 fL (35.1-46.3); White Blood Cell Count 9.36 K/mm3 (4.00-11.30)
[2019-07-16 05:03] LABS: Albumin, Blood 2.6 g/dL (3.4-5.0); Albumin/Globulin Ratio 0.7 (0.8-1.8); Bilirubin, Total 0.5 mg/dL (0.1-1.0); Bun/Creatinine Ratio 47.7 (12.0-20.0); Calcium, Blood 8.5 mg/dL (8.5-10.1); Creatinine, Blood 2.62 mg/dL (0.60-1.20); Globulin, Blood 3.7 g/dL (2.2-4.0); Magnesium, Blood 2.4 mg/dL (1.6-2.4); Phosphorus, Blood 4.4 mg/dL (2.5-4.9); Total Protein, Blood 6.3 g/dL (6.4-8.2)
--- NOTE | 2019-07-16 06:28 | NUR ---
SHIFT SUMMARY; 84 Y/O ADMITTED FOR ENCEPHALOPATHY. AOX2, CONFUSED OFF AND ON THROUGHOUT THE NIGHT. FORGETS CONVERSATIONS AND SOMETIMES DIRECTIONS. LASIX GIVEN PER ORDERS. PATIENT HAS 5 LARGE VOIDS THIS SHIFT, 3 LOOSE STOOLS. LUNG SOUNDS DIMINISHED, OCCATIONAL COUGH, NO PRODUCTION. EDEMA BLE UP TO MID CHEST 4+, RIGHT POSTERIOR ARM ALSO HAS EDEMA +2. SATS ON 2 LITERS OF O2 IN LOW 90'S. ON CPAP WITH BLEED IN RUNNING MID 90'S. HE DOES DESAT WHEN LAYING FLAT AND HAS DIFFICULTY BREATHING, TURNED UP O2 ONCE BUT OTHER TIMES HE WAS ABLE TO LAY FLAT AND DID FINE. SEVERAL BRUISES ALL OVER BODY, SORES ON UPPER ARMS. POWERGLIDE FLUSHES WELL BUT DOES NOT DRAW. REPOSITIONED PRN. MEDS PER EMAR. NO OTHER CHANGES TO REPORT.
--- NOTE | 2019-07-16 13:14 | NUR ---
Pt resting in bed upon arrival eating his lunch. Pt has continued coughing when eating. Instructed to break from eating to allow rest. Pt is A&OX2/3. Pt unable to give appropriate reason for hospital stay. Pt mumbles his words and is difficult to understand. Pt continues to cough and states he is here due to a clinical study. Ended visit to allow Pt to rest from coughing. Discussed case with Bedside RN Sherin. Suggested ST evaluation may be beneficial and to discuss case with Dr Pretty when he makes his rounds. Spoke with Ada Cutter Grinder Operator Priscilla and discussed case. Discussed POLST on file with suggestion of completing new POLST. Current POLST is incomplete. Priscilla reports Dr George has plan to contact Pt's possibly regarding goals of care. Palliative Care will remain available and F/U with family for therapeutic visits as needed.
--- NOTE | 2019-07-16 19:03 | NUR ---
SHIFT SUMMARY- PT IS ALERT WITH CONFUSION. HE IS RECIEVING O2 VIA HIGHFLOW NC. HE IS WORKING WITH RT. HE WORKED WITH PT TODAY AND SAT AT THE EDGE OF THE BED. HE HAS URINARY URGENCY, AND IS INCONTINENT IF URINAL IS NOT PROVIDED SOON HE NEEDS IT. HIS APPETITE IS GOOD. ORDERED ST EVALUATION DUE TO SOME DIFFICULTY SWALLOWING AT LUNCH. HE DID FINE WITH BREAKFAST AND DINNER. BLADDER SCAN THIS MORNING WITH VOLUME OF 200. DR. LAWRENCE NOTIFIED.
--- NOTE | 2019-07-17 03:21 | NUR ---
VINCENZO GOT UP ON SIDE OF BED. HE IS NOT SLEEPING WELL TONIGHT, SO HE DECIDED TO DANGLE AND GET ON HIS COMPUTER. ENCOURAGE HIM TO NOT LEAN ON THE TABLE IT ROLLS. WILL MONITOR.
--- NOTE | 2019-07-17 06:10 | NUR ---
SHIFT SUMMARY: 84 Y/O ADMITTED FOR ENCEPHALOPATHY. MILD CONFUSION OFF AND ON STILL. EDEMA STILL PRESENT FROM TOES TO UPPER CHEST AREA. SKIN IS WEEPING AT THE SIDES. ABDOMIN ROUND. INTAKE 480, OUTPUT 2 ATTENDS CHANGE AND 125 OUTPUT IN URINAL. IV 127. 1 BM. LUNG SOUNDS DIMINISHED. COUGH OCCATIONAL. BP DROPPED TO 94/59. HR THIS SHIFT 102-104. DID SIT ON SIDE OF BED FOR FEW MINUTES. ATTEMPTED TO USE CONDOM CATH BUT WAS NOT ABLE TO GET IT TO HOLD. HAS BEEN UP ALL NIGHT CALLING FOR THINGS BUT DOES NOT REMEMBER WHY. NO OTHER CHANGES TO REPORT THIS SHIFT.
[2019-07-17 07:57] LABS: Albumin, Blood 2.6 g/dL (3.4-5.0); Anion Gap 7 mmol/L (6-16); Blood Urea Nitrogen 127 mg/dL (8-24); Bun/Creatinine Ratio 43.2 (12.0-20.0); CO2, Blood 31 mmol/L (21-32); Calcium, Blood 8.3 mg/dL (8.5-10.1); Chloride, Blood 93 mmol/L (98-108); Creatinine, Blood 2.94 mg/dL (0.60-1.20); Glomerular Filtration Rate 22 (60-); Glucose, Blood 105 mg/dL (70-99); Magnesium, Blood 2.4 mg/dL (1.6-2.4); Phosphorus, Blood 4.8 mg/dL (2.5-4.9); Potassium, Blood 4.3 mmol/L (3.5-5.5); Sodium, Blood 131 mmol/L (136-145)
--- NOTE | 2019-07-17 16:19 | NUR ---
SHIFT SUMMARY- PT A/O, FORGETFUL AT TIMES. PT WITH MININIMAL URINE OUTPUT T/O THE DAY, VOIDS ONLY SMALL AMOUNTS AT A TIME, BLADDER SCAN COMPLETED WITH ONL 126ML IN THE BLADDER.PT REMAINS ON LASIX GTT. PT ON BIPAP T/O MOST OF THE DAY, ON 2L N/C WHEN EATING, DRINKING OR TAKING MEDICATIONS. LS DIMINISHED WITH OCCASIONAL AUDIBLE WHEEZE. SWALLOW EVAL COMPLETED. 3+ BLE EDEMA FROM FEET UP INTO THIGHS AND ABD. PT SAT UP TO SIDE OF BED WITH THERAPY. NO OTHER ACUTE CHANGES THIS SHIFT.
--- NOTE | 2019-07-17 18:11 | NUR ---
SHIFT SUMMARY PT A&O T/O SHIFT. SLURRED SPEECH AND DIFFICULT TO UNDERSTAND AT TIMES. 3+ EDEMA NOTED BLE, THIGHS, AND ABD. MINIMAL URINE OUTPUT THROUGHOUT SHIFT, MOSTLY USES URINAL W/ OCCASIONAL INCONTINENCE. ON BIPAP T/O MOST OF SHIFT AND ON 2L/MIN NC WHEN EATING, DRINKING, AND TAKING MEDICATIONS. PT GOT UP TO SIDE OF BED TODAY. PT IS 2 PERSON ASSIST. TOOK MEDICATIONS WHOLE WITH APPLESAUCE ORDERED BY SPEECH THERAPY. NO ACUTE CHANGES DURING SHIFT. PT USES CALL LIGHT APPROPRIATELY AND BED IS IN LOWEST POSITION.
--- NOTE | 2019-07-17 19:20 | NUR ---
ASSUMED CARE: DAYSHIFT FINISHING UP GETTING HIM CLEANSED FROM BP. ASSISTED WITH LINEN CHANGE AND SKIN CARE. REDNESS IN GROIN WITH SOME SKIN TEARS NOTED. BRUSING TO ABDOMIN ON LEFT SIDE AND RIGHT INNER THIGH APPEAR TO BE GETTTING BIGGER. HAS INCREASE IN BRUISING ACROSS THE ABDOMIN AND ARMS. SWELLING ON SIDES OF TRUNK HAVE DECREASED IN SIZE. NOW MOSTLY ON THE SIDES THEN ABDOMEN AND BACK. THIGHS AND GROIN NO EDEMA. FEET AND CHAPARRO HAVE +3. ON FLUID RESTRICTION AND HAS DONE WELL. URINE OUTPUT IS STILL SMALL AMOUNTS, INCONTIENT. ON 2 LITERS OF O2 AT THIS TIME. DENIES ANY PAIN. LUNGS NO CHANGE. WILL CONTINUE TO MONITOR AND PROVIDE TX. CALL LIGHT IN REACH.
--- NOTE | 2019-07-17 20:59 | NUR ---
ADMINISTERED MEDS IN APPLESAUCE AND SPOONED GIVEN LACTOLOSE. ABLE TO SWALLOW WITH NO PROBLEMS, LONG HE HAD HIS BIPAP OFF. ATTENDS DRY. NO NEEDS NOTED.
--- NOTE | 2019-07-18 01:03 | NUR ---
VINCENZO ANXIOUS, WANTING TO GET UP ON SIDE OF BED. INSISTING ON THIS, NOT ABLE TO SLEEP. HAS NOT SLEPT IN OVER 24 HOURS. CALLED HOSPITALIST. SPOKE TO DR. PEREZ. GOT ORDER FOR MELATONIN. WENT BACK TO ROOM AND HE WAS STILL ASSISTING TO GET UP. TRIED TO ASSIST BUT HE WAS UNABLE TO EVEN PULL HIM SELF TO THE SIDE, OR BE ABLE TO SIT UP ON HIS OWN. SO HE WENT BACK TO BED. GAVE MELATONIN AND ENCOURAGED HIM TO TRY AND SLEEP.
[2019-07-18 06:14] LABS: Hematocrit 34.9 % (37.0-53.0); Hemoglobin 10.9 g/dL (13.5-17.5)
--- NOTE | 2019-07-18 06:18 | NUR ---
SHIFT SUMMARY: 84 Y/O ADMITTED FOR ENCEPHALOPATHY. AOX3 DURING THE DAY BUT NIGHT FALLS HE TENDS TO HAVE MORE CONFUSION AND AGGITATION. HE HAD NOT SLEEP IN OVER 24 HOURS THEREFORE CALLED MD AND GOT HIM SOME MELATONIN. GAVE THAT TO HIM AND HE WAS ABLE TO SLEEP, BUT THE DROGGINESS MAD HIM MORE CONFUSION, PULLING AT HIS LINES. EDEMA +3 IN UPPER TRUNK JOSE, DOWN IN THE GROIN, AND DOWN THE LEGS. HE GOT MORE SWOLLEN THROUGHOUT THE NIGHT. URINE OUTPUT WAS 4 INCONTIENT VOIDS WITH LITTLE URINE IN ATTENDS. 4 BM ON THIS SHIFT. INTAKE WAS ONLY A FEW SIPS OF WATER TO TAKE MEDS. BIPAP REMAINED ON. POWER GLIDE IS STILL PATENT IN THE RIGHT UPPER ARM. DR. LAWRENCE CAME TO SEE HIM. ORDER A CONSULT FOR DR. JIMENEZ, WILL CALL IT IN. GFR 22 AND CREATINE 2.94. WILL REPORT TO DAY SHIFT.
[2019-07-18 06:38] LABS: Albumin, Blood 2.4 g/dL (3.4-5.0); Anion Gap 8 mmol/L (6-16); Blood Urea Nitrogen 124 mg/dL (8-24); Bun/Creatinine Ratio 38.3 (12.0-20.0); CO2, Blood 29 mmol/L (21-32); Calcium, Blood 8.5 mg/dL (8.5-10.1); Chloride, Blood 97 mmol/L (98-108); Creatinine, Blood 3.24 mg/dL (0.60-1.20); Glomerular Filtration Rate 19 (60-); Glucose, Blood 102 mg/dL (70-99); Magnesium, Blood 2.3 mg/dL (1.6-2.4); Potassium, Blood 4.5 mmol/L (3.5-5.5); Sodium, Blood 134 mmol/L (136-145)
--- NOTE | 2019-07-18 10:17 | NUR ---
PT HAS NOT TO HAVE INCREASED CONFUSION SINCE YESTERDAY AND UNABLE TO STAY AWAKE TO SAFELY TAKE MEDICATIONS ORALLY, AM MEDS HELD FOR ASPIRATION RISK. PT RESTLESS AND PULLING ON CORDS IN THE BED. DR RIVERA IN TO TALK WITH PT, PT ORIENTED TO SELF AND THOUGHT HE WAS IN [place] AT THIS TIME, PT WAS ABLE TO TELL ME EARLIER THIS AM THAT HE WAS IN [place]. DR RIVERA SPOKE TO PT ABOUT THE DIALYSIS AND PT WAS NOT ABLE TO GIVE A CLEAR ANSWER BUT THE HAS BEEN OKAYED TO COME IN AND ASSIST WITH MAKING THE DECISION, SPOUSE KALA CALLED THIS AM AND SPOKE WITH ME TO GIVE CONSENT FOR PERMACATH PLACEMENT FOR DIALYSIS, I TOLD HER AT THAT TIME THAT SHE WILL HAVE TO CONSENT TO THE PHYSICIAN. PALLIATIVE CARE NOTIFIED AND HAVE CALLED AND LEFT MESSAGES WITH THE ABOUT COMING IN TO SEE PT AND SPEAK WITH PALLIATIVE CARE. PT DID MAKE A COMMENT THT HE HAD DIALYSIS 5 YEARS AGO AND AT THE TIME SAID HE NEVER WOULD WANT IT AGAIN.
--- NOTE | 2019-07-18 12:56 | NUR ---
PT SPOUSE CAME IN AND SPOKE WITH DR RIVERA AND ALOK FROM PALLIATIVE CARE, PLAN TO CONTINUE WITH PERMACATH PLACEMENT FOR DIALYSIS. CALLED [facility] TO NOTIFY DR JIMENEZ FOR CONSENT, OFFICE WILL NOTIFY DR JIMENEZ.
--- NOTE | 2019-07-18 15:08 | NUR ---
PT TO [facility] FOR PERMACATH PLACEMENT. SPOUSE AT SIDE.
--- NOTE | 2019-07-18 15:35 | NUR ---
Called to assist with plan of pt starting on dialysis. Review of pt and decisional process needed to care for this patient. Suggested pt be allowed to come in to see patient to aid her in her process of agreeing to dialysis. Pt is confussed tremulous and aggitated. Tries to follow conversation but unable to track. Doctor in to talk with patient, unable to follow conversation. contacted to come in for visit. Dr Pretty spoke with . Difficult conversation due to her stress and her being overwhelmed at seeing him. She wants dialysis. Suggested Dr Pretty address code status. struggled with converstion plan is to keep it the some for now. Spent theraputic time with this afternoon, facilitated expressions of fear and stress. Advised her we did not need to discuss plan of care today. She wanted to know what my role would be in his care. Review of the philosphy of palliative care. Review of what I could offer and discussed that our goal was to address his plan of care comprehensively and not just from a disease stand point. Responded ok to this and she let out some more fear of his future. We briefly discussed advance care planning and changing of level of care as he chalnges. Goal now is to see how he tolerates dialysis and hopefully he can particiapte more in decisions. We reviewed suffering and endurance and the uniqie commitment that is dialysis. Praised her for her strength and love and support. Advised her Dr Cross and the dialysis team will watch his tolerance closely. Plan is to meet in a few days to further discuss he needs. Gave her our message phone number and suggested she call for support and assistance.
--- NOTE | 2019-07-18 17:05 | NUR ---
PT [facility] S/P [facility] TO [facility]. PT SLEEPING BUT AWAKES TO VERBAL STIMULI, SPOUSE AT BEDSIDE. VSS. SUTURE SITE STARTED BLEEDING APROX 5 MIN LATER, PRESSURE APPLIED AND PRESSURE DRESSING PLACED.
--- NOTE | 2019-07-18 17:39 | NUR ---
SHIFT SUMMARY PT AROUSES TO VERBAL STIMULI BUT HAS DIFFICULTY REMAINING AWAKE AT TIMES. PT IS A&O TO SELF, PLACE, AND WHO IS AT BEDSIDE. PT IS DIFFICULT TO UNDERSTAND AND CONFUSED AT TIMES T/O SHIFT. PT FOLLOWS COMMANDS. 2 PERSON ASSIST MINIMUM. PT ON CONTINUOUS BIOX AND BIPAP WHEN SLEEPING AND T/O MOST OF SHIFT. NO PO MEDICATIONS GIVEN TODAY DUE TO RISK OF ASPIRATION. PROVIDER NOTIFIED. 3+ EDEMA NOTED ON BLE, THIGHS, AND ABD. CONTINUES TO HAVE MINIMAL URINE OUTPUT, BUT MULTIPLE BM. CONDITION APPEARS TO BE WORSENING SINCE PRIOR SHIFT. PT WENT TO [employer] [facility] [facility] TO HAVE PERMACATH PLACED, DIALYSIS TO FOLLOW TONIGHT. PROVIDER ORDER NEURO CHECK Q4H. LAST NEURO CHECK AT APPROX 1700.
--- NOTE | 2019-07-18 17:43 | NUR ---
SPOKE WITH DIALYSIS NURSE AND SHE WILL BE DIALYSING PT TONIGHT. CALLED AND NOTIFIED DR LAWRENCE AND ORDERS RECEIVED FOR CHANGES TO MEDICATIONS DUE TO STARTING DIALYSIS.
--- NOTE | 2019-07-18 18:03 | NUR ---
SHIFT SUMMARY- PT A/O TO SELF ONLY T/O MOST OF THE DAY. SPOUSE ABLE TO BE AT BEDSIDE AND SPOKE WITH PALLIATIVE CARE WELL DR RIVERA, DECISION WAS MADE TO GO ALONG WITH PERMACATH PLACEMENT AND DIALYSIS. PERMACATH PLACED THIS EVENING AND DIALYSIS STARTED. PT DENIES ANY COMPLAINTS T/O THE DAY. LS DIMINISHED WITH OCCASIONAL AUDIBLE WHEEZE. ON BIPAP T/O MOST OF THE DAY, 2L N/C WHEN OFF. 3+ PITTING EDEMA TO BLE, THIGHS AND ABD. PT WITH MINIMAL URINE OUTPUT. MULTIPLE BMS THIS SHIFT. AM MEDS HELD DUE TO PT NOT BEING ABLE TO STAY AWAKE AND ASPIRATION RISK. NO OTHER ACUTE CHANGES THIS SHIFT.
--- NOTE | 2019-07-18 18:34 | NUR ---
PT SPOUSE ASSISTING PT WITH EATING DINNER, PT AWAKE AND ALERT. PT TOOK A BITE OF PEACHES PER SPOUSE AND PT BEGAN COUGHING AND ASPIRATED. SPOUSE REPORTS PT LIPS TURNED BLUE. UPON GOING INTO THE ROOM PT SITTING UP AND COUGHING, ORAL SUCTION COMPLETED AND WAS ABLE TO SUCTION OUT SOME PIECES OF PEACHES. PT COUGHING BUT ABLE TO TALK. SATS REMAINED IN THE 90'S. FOOD TAKEN AT THIS TIME.
--- NOTE | 2019-07-18 19:03 | NUR ---
HEMODIALYSIS PT WAS EATING WHILE I WAS SETTING UP THE MACHINE. HE BEGAN CHOKING ON PEACHES. HIS BLOOD PRESSURE INCREASED AND HE BEGAN BLEEDING AT HIS CATHETER INCERTION SITE. PRESSURE WAS APPLIED FOR 10 MINS. BLEEDING STOPPED, I BEGAN TO COMPLETE THE TESTING PROCESS FOR TX WHEN HE BEGAN COUGHING AGAIN. DIRECT PRESSURE WAS APPLIED AGAIN. HIS TREATMENT WAS DELAYED BY 47 MINUTES DUE TO CHOKING AND BLEEDING. ON INITIATION OF TREATMENT THE PATIENT WAS TOLLERATING TREATMENT WELL. THE BLOOD PRESSURES RESOLVED AND THE PATIENT WAS ABLE TO COMPLETE TREATMENT.
--- NOTE | 2019-07-18 21:00 | NUR ---
PT TOLLERATED TX WELL, BLEEDING FROM HIS INCISION THROUGHOUT TX. COUGHING CAUSED HIS BP TO INCREASE AND BLEEDING TO RESTART MANY TIMES. PRESSURE ON CLAVICAL ON BLEEDING. FLOOR NURSE AWARE, SURGEON AWARE. WAS NOT ABLE TO REACH GOAL OF 2.5L DUE TO HYPOTENSION, BUT WAS ABLE TO GET 2L. PT VITALS ARE STABLE. BLEEDING HAS STOPPED FOR THE MOMENT. AT THE BED SIDE.
[2019-07-18 22:32] LABS: Hematocrit 35.2 % (37.0-53.0); Hemoglobin 11.2 g/dL (13.5-17.5)
[2019-07-19 02:00] LABS: Hematocrit 36.6 % (37.0-53.0); Hemoglobin 11.2 g/dL (13.5-17.5)
[2019-07-19 02:14] LABS: Albumin, Blood 2.8 g/dL (3.4-5.0); Anion Gap 8 mmol/L (6-16); Blood Urea Nitrogen 85 mg/dL (8-24); Bun/Creatinine Ratio 32.1 (12.0-20.0); CO2, Blood 30 mmol/L (21-32); Calcium, Blood 8.3 mg/dL (8.5-10.1); Chloride, Blood 97 mmol/L (98-108); Creatinine, Blood 2.65 mg/dL (0.60-1.20); Glomerular Filtration Rate 24 (60-); Glucose, Blood 107 mg/dL (70-99); Magnesium, Blood 2.1 mg/dL (1.6-2.4); Phosphorus, Blood 4.3 mg/dL (2.5-4.9); Potassium, Blood 4.2 mmol/L (3.5-5.5); Sodium, Blood 135 mmol/L (136-145)
--- NOTE | 2019-07-19 07:03 | NUR ---
SUMMARY PT HAS ISSUES W/ ASPIRATION AT BEGINNING OF SHIFT. PT HAD PEACHES. PT COUGHED AND REQUIRED SUCTIONING FREQUENTLY. THE ACTUARIAL INTERN STATED THAT PT HAD CONTINUED BLEEDING NOTED FROM PERMACATH SITE. BLEEDING CONTROLLED AND DR LAWRENCE CALLED TO ASK FOR A STAT H/H. PT DEVELOPED CX W/ NAUSEA. PROVIDER ORDERED NTG, ECG AND TROPOIN. PT HAD ONE NTG W/ DROP IN BP AND ZOFRAN FOR NAUSEA. PT FELL ASLEEP. PT BECAME MORE CONFUSED AND WAS PULLING AT LINES. CONCERN WAS PT MIGHT PULL PERMA CATH. DR. LAWRENCE ORDERED SOFT RESTRAINTS. PT SLEPT W/ BIPAP MOST OF NIGHT AND MAINTAINED SPO2 >90 %. KALA WAS PRESENT AND WAS IMMENSE HELP. PT ON CAMERA WELL. BED ALARM ON.
--- NOTE | 2019-07-19 07:15 | NUR ---
PT PULLING AT IV AND PERMACATH. B/L SOFT WRIST RESTRAINTS PLACED. WILL MONITOR
--- NOTE | 2019-07-19 09:51 | NUR ---
AM BP 86/52 AND BP MEDS HELD, DR RIVERA AWARE.
--- NOTE | 2019-07-19 18:34 | NUR ---
PT HAD DIALYSIS TODAY, 3000ML TAKEN OFF AND HE WAS SLEEPY AT THIS RETURN THIS AFTERNOON. SPOUSE AT BEDSIDE T/O THE AFTERNOON. PT HAS SOME BLEEDING FROM HIS PENIS, AND SM AMOUNT URINE PRODUCED WITH BLOODY. DR RIVERA IS AWARE, LOVENOX WAS DISCONTINUED TODAY, WILL MONITOR. NO ACUTE CHANGES NOTED THIS SHIFT, WILL CONTINUE TO MONITOR AND REPORT TO ONCOMING RN.
--- NOTE | 2019-07-20 00:37 | NUR ---
07/19/192129 [facility] drsg changed after verification with Kayley dialysis nurse and boiler house operator. Pt was agitated stating it was itching and patient was scratching at drsg. Area is bruised under drsg with no active bleeding noted. Cleaned well with cholorprep and sterile drsg applied. Pt nurse notified.
--- NOTE | 2019-07-20 04:29 | NUR ---
MILITARY ANALYST SUMMARY AT BEDSIDE DURING BEGINNING OF SHIFT. SHE STATED THAT PERMACATH DRESSING HAD BEEN BOTHERING HIM. NO FURTHER C/O AFTER RN WAS ABLE TO CHANGE DRESSING. AO TO SELF AND FAMILY ONLY. APPEARED TO SLEEP WELL T/O THE SHIFT WITH NO S/S DISTRESS. BED IN LOWEST POSITION WITH CALL LIGHT IN REACH. WILL CONTINUE TO MONITOR AND REPORT TO ONCOMING RN.
[2019-07-20 05:35] LABS: Hematocrit 34.7 % (37.0-53.0); Hemoglobin 10.4 g/dL (13.5-17.5)
[2019-07-20 05:54] LABS: Albumin, Blood 2.9 g/dL (3.4-5.0); Anion Gap 7 mmol/L (6-16); Blood Urea Nitrogen 47 mg/dL (8-24); CO2, Blood 32 mmol/L (21-32); Calcium, Blood 8.1 mg/dL (8.5-10.1); Chloride, Blood 101 mmol/L (98-108); Creatinine, Blood 2.61 mg/dL (0.60-1.20); Glomerular Filtration Rate 25 (60-); Glucose, Blood 127 mg/dL (70-99); Magnesium, Blood 2.1 mg/dL (1.6-2.4); Phosphorus, Blood 3.3 mg/dL (2.5-4.9); Potassium, Blood 3.4 mmol/L (3.5-5.5); Sodium, Blood 140 mmol/L (136-145)
[2019-07-20 08:09] LABS: HBSAG SCREEN Negative (Negative); HEP A AB, IGM Negative (Negative); HEP B CORE AB, IGM Negative (Negative); HEP C VIRUS AB <0.1 (0.0-0.9)
--- NOTE | 2019-07-20 19:34 | NUR ---
SHIFT SUMMARY: NO ACUTE CHANGES TO REPORT THSI SHIFT. PT A&O X2 (SELF & FAMILY); CALM AND COOPERATAIVE WITH CARE. NO C/O PAIN THIS SHIFT. TELE IN PLACE; PACED @ 103. DIALYSIS PT; PERMACATH TO [facility]; DIALYSIS TODAY; PT TOLERATED WELL; MENTATION IMPROVING. ASPIRATION PRECAUTIONS. IN ROOM T/O SHIFT. 1000ML FLUID RESTRICTION; PT COMPLIANT. REPORT GIVEN TO ONCOMING RN.
--- NOTE | 2019-07-21 06:38 | NUR ---
SHIFT SUMMARY PT IS A 84 Y/O MALE, ADMITTED FOR TOXIC METABOLIC ENCEPHALOPATHY. HE IS A&O X SELF AND FAMILY, CURRENTLY ON BEDREST. PT IS ON 3L O2 VIA NC, WHICH IS HIS NORMAL HOME DOSE, AND ON A BIPAP AT NIGHT. TELE SHOWED 100% PACED IN THE 100S. VITAL SIGNS OTHERWISE STABLE. DIALYSIS PERMACATH IN R NECK IN PLACE. NO COMPLAINTS OF PAIN, NAUSEA OR SOB. NO ACUTE CHANGES IN PT CONDITION NOTED. WILL CONTINUE TO MONITOR AND TREAT PER EMAR UNTIL HAND OFF TO DAY SHIFT RN.
[2019-07-21 07:38] LABS: Albumin, Blood 2.9 g/dL (3.4-5.0); Anion Gap 2 mmol/L (6-16); Blood Urea Nitrogen 31 mg/dL (8-24); Bun/Creatinine Ratio 12.3 (12.0-20.0); CO2, Blood 35 mmol/L (21-32); Chloride, Blood 101 mmol/L (98-108); Creatinine, Blood 2.52 mg/dL (0.60-1.20); Glomerular Filtration Rate 26 (60-); Glucose, Blood 135 mg/dL (70-99); Magnesium, Blood 2.1 mg/dL (1.6-2.4); Phosphorus, Blood 3.1 mg/dL (2.5-4.9); Potassium, Blood 3.6 mmol/L (3.5-5.5); Sodium, Blood 138 mmol/L (136-145)
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
--- NOTE | 2019-07-21 12:57 | NUR ---
patient isvisibly still agitated, moving hislegs, still talkingto himself quietly concerned about safety of staff. will speak with charge nurse and potentially doctor. after the comments I have personally heard I believe it to be best interest for staff to be male with patient if possible. he is quiet now, will relay information to charge nurse and primary nurse when available.
--- NOTE | 2019-07-21 13:02 | NUR ---
undid the last two notes written on the wrong patient.
--- NOTE | 2019-07-21 18:25 | NUR ---
PATIENT A/O TO SELF AND FAMILY, AT BEDSIDE THROUGHOUT THE SHIFT. B/P IN THE 80'S THIS AM AND CARDIAC MEDS WERE HELD. DIALYSIS WAS DONE TODAY, PERM CATH TO R UPPER CHEST. POWERGLIDE TO RUE WNL, BUT DOES NOT DRAW. MULTIPLE SKIN ISSUES. 3-4+ EDEMA TO LEGS, BACK AND ABDOMEN. PATIENT CONTINUES TO HAVE TROUBLE SWALLOWING, NEEDS SUPERVISION AT ALL TIMES. PACED ON TELE, DENIES ANY CP. TAKES PILLS WHOLE IN APPLESAUCE. CPAP WITH 3LO2 BLEED IN WHILE ASLEEP, 3LO2 WHILE AWAKE WHICH IS BASELINE. CALM AND COOPERATIVE WITH CARE.
--- NOTE | 2019-07-22 02:22 | NUR ---
Urine Pt used urinal and noticed his urine is very dark like strong coffee. BP was 89/48. Notified RN but she did not appear to worried. Pt is a dialysis pt.
[2019-07-22 05:23] LABS: Hematocrit 33.3 % (37.0-53.0); Hemoglobin 9.9 g/dL (13.5-17.5)
[2019-07-22 05:41] LABS: Albumin, Blood 3.1 g/dL (3.4-5.0); Anion Gap 5 mmol/L (6-16); Blood Urea Nitrogen 24 mg/dL (8-24); CO2, Blood 33 mmol/L (21-32); Calcium, Blood 8.2 mg/dL (8.5-10.1); Chloride, Blood 101 mmol/L (98-108); Creatinine, Blood 2.66 mg/dL (0.60-1.20); Glomerular Filtration Rate 24 (60-); Glucose, Blood 122 mg/dL (70-99); Phosphorus, Blood 3.1 mg/dL (2.5-4.9); Potassium, Blood 3.7 mmol/L (3.5-5.5); Sodium, Blood 139 mmol/L (136-145)
--- NOTE | 2019-07-22 05:57 | NUR ---
SHIFT SUMMARY PT IS AN 84 Y/O MALE, ADMITTED FOR TOXIC METABOLIC ENCEPHALOPATHY. HE IS A&O X 2, CURRENTLY ON BEDREST. DIALYSIS PORT IN R NECK/UPPER CHEST. PT'S BP HAS BEEN LOW, IN THE 90S SYSTOLICALLY. TELE SHOWED 100% PACED AT 105-107. ALL OTHER VITALS STABLE. NO COMPLAINTS OF PAIN, NAUSEA OR SOB. PT HAD A SMALL AMOUNT OF VERY DARK URINE OUTPUT DURING THE NIGHT. NO OTHER ACUTE CHANGES IN PT CONDITION NOTED. WILL CONTINUE TO MONITOR AND TREAT PER EMAR UNTIL HAND OFF TO DAY SHIFT RN.
--- NOTE | 2019-07-22 18:40 | NUR ---
PT IS A 84/F, AND WAS ADMITTED FOR TOXIC METABOLIC ENCEPHALOPATHY. PT IS A/OX2 TO SELF, AND AT THE BEDSIDE. PT IS ON BEDREST 2 PERSON ASSIST MAX. PT HAD DIALYSIS TODAY. DIALYSIS PORT ON R NECK/UPPER CHEST. POWEGLIDE INTACT ON RIGHT ARM. TELE SHOWED 100% PACED AT 108. DIET CHANGED TO PUREE. MEDODRINE SCHEDULED AND GIVEN TODAY TO CONTROL HYPOTENSION. NO ACUTE CHANGES, PT IS ON 3L O2 ON HIS BASELINE. PT WILL NEED UA AND STOOL SAMPLE. ONGOING CARE, WILL REPORT TO ONCOMING SHIFT RN.
[2019-07-22 21:30] LABS: Source, Urine Clean Catch
[2019-07-22 21:35] LABS: Appearance, Urine Turbid (Clear); Blood, Urine 5+ (Neg); Color, Urine Brown (P-Yellow); Glucose Qualitative, Urine Neg (Neg); Ketones, Urine 1+ (Neg); Leukocyte Esterase, Urine 3+ (Neg); Nitrite, Urine Neg (Neg); Protein, Urine 3+ (Neg); Specific Gravity, Urine 1.025 (1.003-1.022); Urobilinogen, Urine NORM (Normal); pH, Urine 6.5 (5.0-8.0)
[2019-07-22 21:36] LABS: Bilirubin, Urine 1+ (Neg)
[2019-07-22 21:44] LABS: Red Blood Cells, Urine TNTC /hpf (0-2); Squamous Epithelial Cells Few /hpf (Few); White Blood Cells, Urine 50-100 /hpf (0-5)
[2019-07-22 21:45] LABS: Amorphous Light (0-Heavy); Bacteria Many /hpf
--- NOTE | 2019-07-23 06:38 | NUR ---
SHIFT SUMMARY PT IS AN 84 Y/O MALE, ADMITTED FOR TOXIC METABOLIC ENCEPHALOPATHY AND CURRENTLY ON HEMODIALYSIS. PT WAS A&O X 2 AT THE START OF SHIFT, BUT BECAME ACUTELY CONFUSED AND AGITATED WITH VISUAL HALLUCINATIONS THIS AM. THE HOSPITALIST DR CHUN WAS NOTIFIED, AND A OT DOSE OF PO SEROQUEL 25 MG WAS GIVEN. PT HAS A HX OF ESSENTIAL TREMORS, BUT TREMORS WERE WORSE THIS AM COMPARED TO PREVIOUS NIGHTS. NO COMPLAINTS OF PAIN, NAUSEA OR SOB. TELE SHOWED 100% PACED @ 107. VITAL SIGNS OTHERWISE STABLE. PT DID NOT SLEEP MUCH DURING THE NIGHT. NO OTHER ACUTE CHANGES IN PT CONDITION NOTED. WILL CONTINUE TO MONITOR AND TREAT PER EMAR UNTIL HAND OFF TO DAY SHIFT RN.
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
[2019-07-23 08:36] LABS: Hematocrit 32.5 % (37.0-53.0); Hemoglobin 9.8 g/dL (13.5-17.5)
[2019-07-23 09:03] LABS: Albumin, Blood 2.8 g/dL (3.4-5.0); Anion Gap 5 mmol/L (6-16); Blood Urea Nitrogen 18 mg/dL (8-24); Bun/Creatinine Ratio 6.7 (12.0-20.0); CO2, Blood 33 mmol/L (21-32); Calcium, Blood 7.9 mg/dL (8.5-10.1); Chloride, Blood 100 mmol/L (98-108); Creatinine, Blood 2.68 mg/dL (0.60-1.20); Glomerular Filtration Rate 24 (60-); Glucose, Blood 124 mg/dL (70-99); Magnesium, Blood 1.9 mg/dL (1.6-2.4); Phosphorus, Blood 2.9 mg/dL (2.5-4.9); Potassium, Blood 3.7 mmol/L (3.5-5.5); Sodium, Blood 138 mmol/L (136-145)
--- NOTE | 2019-07-23 19:20 | NUR ---
ASSUMED CARE RECEIVED REPORT FROM CHRISTIANO DICKINSON. PT REMAINS ASLEEP AT THIS TIME, BEGINNING TO AROUSE TO VERBAL STIMULI. AT THE BEDSIDE, REPORTING THAT PT HAS BEEN ASLEEP ALL DAY, BELIEVES IT'S R/T A MEDICATION PT HAD RECEIVED PREVIOUSLY. RESPS EVEN AND UNLABORED, O2 SATS STABLE ON 2L/NC AT THIS TIME. DENIES NEEDS. CALL LIGHT, POSSESSIONS IN REACH, BED IN LOWEST POSITION WITH ALARMS ON. WILL CONTINUE TO MONITOR.
--- NOTE | 2019-07-23 19:44 | NUR ---
SHIFT SUMMARY- PT HAS BEEN SLEEPING AND NOT WAKING T/O THE SHIFT. SPOUSE HAS BEEN AT THE BEDSIDE. IT SEEMS HE MAY BE NAPPING IN RESPONSE TO THE OT DOSE OF SEROQUEL FROM EARLY IN THE AM. NO PO MEDICATIONS HAVE BEEN GIVEN TODAY. PT WENT TO DIALYSIS AND WENT TO SLEEP JUST PRIOR TO DIALYSIS ABOUT 0930. PT SLEEPING SOUNDLY SINCE, NO PO INTAKE OF FOOD OR WATER, OR MEDICATIONS. NO S&S OF DISTRESS. PT HAS NO S&S OF PAIN T/O THE DAY. BEDSIDE REPORT COMPLETED WITH THE NIGHT RN, SPOUSE STILL AT THE BEDSIDE.
[2019-07-23 23:44] LABS: Campylobacter Sp Not Detected (NOT DETECT)
[2019-07-23 23:45] LABS: Adenovirus F 40/41 Not Detected (NOT DETECT); Astrovirus Not Detected (NOT DETECT); Cryptosporidium Not Detected (NOT DETECT); Cyclospora Cayetanensis Not Detected (NOT DETECT); E. Coli O157 Not Detected (NOT DETECT); Entamoeba Histolytica Not Detected (NOT DETECT); Enteroaggregative E. coli-EAEC Not Detected (NOT DETECT); Enteropathogenic E. coli-EPEC Not Detected (NOT DETECT); Enterotoxigenic E. coli-ETEC Not Detected (NOT DETECT); Giardia Lamblia Not Detected (NOT DETECT); Norovirus GI/GII Not Detected (NOT DETECT); Plesiomonas Shigelloides Not Detected (NOT DETECT); Rotavirus A Not Detected (NOT DETECT); Salmonella Sp Not Detected (NOT DETECT); Sapovirus Not Detected (NOT DETECT); Shiga Toxin-prod E. coli-STEC Not Detected (NOT DETECT); Shigella/Enteroin E. coli-EIEC Not Detected (NOT DETECT); Vibrio Cholerae Not Detected (NOT DETECT); Vibrio Sp Not Detected (NOT DETECT); Yersinia Enterocolitica Not Detected (NOT DETECT)
--- NOTE | 2019-07-24 04:37 | NUR ---
SHIFT SUMMARY PT INCREASINGLY ALERT T/O NIGHT, ENJOYED VISITING WITH EARLY ON IN THE SHIFT. WAS ABLE TO TAKE PO MEDICATIONS WITHOUT DIFFICULTY, ATE SOME YOGURT AND PUDDING AND TOLERATED WELL. SAT ON EDGE OF BED AND TRANSFERRED TO RECLINER AND THEN BACK TO BED WITH ASSISTANCE OF 2. O2 SATS STABLE ON BIPAP AND 2L O2/NC. VS AND BP'S STABLE. NO BLEEDING FROM PERMACATH SITE NOTED. ASLEEP AT THIS TIME. CALL LIGHT, POSSESSIONS IN REACH, BED IN LOWEST POSITION WITH ALARMS ON. WILL CONTINUE TO MONITOR UNTIL DAY RN ASSUMES CARE.
[2019-07-24 07:44] LABS: BASOPHILS ABSOLUTE AUTO 0.04 K/mm3 (0.00-0.23); BASOPHILS PERCENT AUTO 1 % (0-2); EOSINOPHILS ABSOLUTE AUTO 0.12 K/mm3 (0.00-0.68); EOSINOPHILS PERCENT AUTO 1 % (0-6); Hematocrit 34.5 % (37.0-53.0); Hemoglobin 10.2 g/dL (13.5-17.5); IMMATURE GRAN ABSOLUTE AUTO 0.05 K/mm3 (0.00-0.10); IMMATURE GRAN PERCENT AUTO 1 % (0-1); LYMPHOCYTES ABSOLUTE AUTO 0.87 K/mm3 (0.84-5.20); LYMPHOCYTES PERCENT AUTO 10 % (21-46); MONOCYTES ABSOLUTE AUTO 0.77 K/mm3 (0.16-1.47); MONOCYTES PERCENT AUTO 9 % (4-13); Mean Corpuscular HGB 31.1 pg (26.0-34.0); Mean Corpuscular HGB Conc 29.6 g/dL (31.5-36.5); Mean Corpuscular Volume 105 fL (80-100); Mean Platelet Volume 10.3 fL (9.1-12.4); NEUTROPHILS ABSOLUTE AUTO 6.75 K/mm3 (1.96-9.15); NEUTROPHILS PERCENT AUTO 78 % (41-73); Platelet Count 91 K/mm3 (150-400); RDW Coefficient Variation 15.8 % (11.7-14.2); RDW Standard Deviation 61.6 fL (35.1-46.3); Red Blood Cell Count 3.28 M/mm3 (4.30-5.90)
[2019-07-24 08:03] LABS: Albumin, Blood 2.7 g/dL (3.4-5.0); Albumin/Globulin Ratio 0.8 (0.8-1.8); Bilirubin, Total 0.6 mg/dL (0.1-1.0); Bun/Creatinine Ratio 6.2 (12.0-20.0); Calcium, Blood 7.8 mg/dL (8.5-10.1); Creatinine, Blood 2.6 mg/dL (0.60-1.20); Globulin, Blood 3.5 g/dL (2.2-4.0); Potassium, Blood 3.5 mmol/L (3.5-5.5); Total Protein, Blood 6.2 g/dL (6.4-8.2)
--- NOTE | 2019-07-24 18:17 | NUR ---
SHIFT SUMMARY PATIENT DENIES PAIN, NAUSEA, AND SHORTNESS OF BREATH. PATIENT UP IN CHAIR TWO ASSIST W/ GAIT BELT AND FWW. PATIENT HAD DIALYSIS TODAY. PATIENTS'S AT BEDSIDE. CALL LIGHT IN REACH
--- NOTE | 2019-07-24 19:30 | NUR ---
ASSUMED CARE RECEIVED REPORT FROM CHRISTIANO RENTERIA. ASSUMED CARE OF PT. RESTING COMFORTABLY AT THIS TIME, NO S/S ACUTE DISTRESS NOTED. AT THE BEDSIDE. PT ALERT, CALM AND COOPERATIVE. PT REPORTED TO HAVE HAD HEMODIALYSIS TODAY, PERMACATH C/D/I, NO BLEEDING NOTED FROM SITE, ECCHYMOSIS SURROUNDING SITE REMAINS. PT AND DENY NEEDS AT THIS TIME. CALL LIGHT, POSSESSIONS IN REACH. BED IN LOWEST POSITION WITH ALARMS ON. WILL CONTINUE TO MONITOR.
--- NOTE | 2019-07-24 19:45 | NUR ---
PHYSICIAN COMMUNICATION SPOKE TO DR. QUIÑONES REGARDING PT'S BLOOD PRESSURE. ORDERS RECEIVED. WILL CONTINUE TO MONITOR.
--- NOTE | 2019-07-25 04:01 | NUR ---
SHIFT SUMMARY PT RESTING COMFORTABLY AT THIS TIME, NO S/S ACUTE DISTRESS NOTED. SLEPT OFF AND ON T/O NIGHT. PT INCREASINGLY A&O THIS SHIFT, CALLING APPOPRIATELY AND MAKING NEEDS KNOWN, DECREASING PERIODS OF CONFUSION, CARRYING ON SENSICAL CONVERSATIONS WITH STAFF. SBP TRENDING IN LOW TO MID 100'S AFTER FLUID BOLUS AT THE BEGINNING OF SHIFT. WORE BIPAP T/O NIGHT, O2 SATS STABLE. NO OTHER ACUTE EVENTS NOTED. CALL LIGHT, POSSESSIONS IN REACH, BED IN LOWEST POSITION WITH ALARMS ON. WILL CONTINUE TO MONITOR UNTIL DAY RN ASSUMES CARE.
--- NOTE | 2019-07-25 18:54 | NUR ---
HE HAD DIALYSIS TODAY TAKING OFF 2000 MLS FLUID. HE HAS SOME CONFUSION BUT IS MUCH MOR LUCID AND ENGAGED OF LATE YESTERDAY. COVID SWAB DONE. OUR LAB SAYS IT IS A SEND OUT AND WILL RESULT IN 1 TO 2 DAYS. HE HAS VOIDED 2 OR 3 TIMES TODAY, ABOUT A TABLESPOON EACH TIME OF BROWN WATERY URINE WITH A LITTLE SEDIMENT. PERMACATH RCW WNL. HE HAS A LOT OF BRUISING THERE AND ALL OVER HIS BODY. SKIN IS VERY FRAGILE. CBG'S STABLE. PRESENT ALL DAY.
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
[2019-07-26 05:56] LABS: Hematocrit 33.4 % (37.0-53.0)
[2019-07-26 06:17] LABS: Albumin, Blood 2.9 g/dL (3.4-5.0); Anion Gap 6 mmol/L (6-16); Blood Urea Nitrogen 19 mg/dL (8-24); CO2, Blood 31 mmol/L (21-32); Calcium, Blood 7.9 mg/dL (8.5-10.1); Chloride, Blood 99 mmol/L (98-108); Glomerular Filtration Rate 24 (60-); Glucose, Blood 174 mg/dL (70-99); Magnesium, Blood 1.9 mg/dL (1.6-2.4); Phosphorus, Blood 2.6 mg/dL (2.5-4.9); Potassium, Blood 3.4 mmol/L (3.5-5.5); Sodium, Blood 136 mmol/L (136-145)
--- NOTE | 2019-07-26 16:21 | NUR ---
HE SLEPT IN UNTIL 1030. HE WAS DIFFICULT TO AROUSE BUT ATE A LATE BREAKFAST AND THEN SOME LUNCH. HE WAS UP IN THE CHAIR X2 TODAY AND WORKED WITH THERAPY. HE REQUIRES MAX ASSIST OF 2 TO STAND UP FROM THE CHAIR AND NEEDS CONSTANT QUEING TO FOLLOW INSTRUCTION DURING TRANSFERS. NO DIALYSIS TODAY. MIDODRINE GIVEN. BUMEX GIVEN, BUT METOPROLOL AND ALDACTONE HELD D/T LOW SBP. HE IS PACED OVER 100 ON TELE. SKIN BRUISING UNCHANGED.HIS HAS BEEN WITH HIM ALL DAY. SHE IS VERY HELPFUL REGARDING HIS COOPERATION WITH US.
--- NOTE | 2019-07-27 05:47 | NUR ---
ART CONSULTANT SUMMARY NO ACUIE CHANGES DURRING SHIFT. A LITTLE ANXIOUS AND RESTLESS AFTER LEFT AROUND 1999. PT AWAKE UNTIL ABOUT 2300 THEN WAS ABLE TO GET SOME BROKEN SLEEP. NO REPORTS OF PAIN. USED URINAL MULITIPLE TIMES WITH ONLY ABOUT A TABLESPOON PRODUCED EACH TIME. ONE SMALL BM. DRESSING CHANGES ON POWERGLIDE IN AM, PT TOLRATED WELL PT BACK TO SLEEP AFTER. VSS. WILL CONTIUNE TO MONITOR UNTIL CHANGE OF SHIFT.
[2019-07-27 06:06] LABS: Hematocrit 31.2 % (37.0-53.0); Hemoglobin 9.6 g/dL (13.5-17.5)
[2019-07-27 06:24] LABS: Albumin, Blood 2.4 g/dL (3.4-5.0); Anion Gap 7 mmol/L (6-16); Blood Urea Nitrogen 27 mg/dL (8-24); Bun/Creatinine Ratio 8.7 (12.0-20.0); CO2, Blood 27 mmol/L (21-32); Calcium, Blood 7.3 mg/dL (8.5-10.1); Chloride, Blood 99 mmol/L (98-108); Glomerular Filtration Rate 20 (60-); Glucose, Blood 156 mg/dL (70-99); Magnesium, Blood 1.7 mg/dL (1.6-2.4); Phosphorus, Blood 2.8 mg/dL (2.5-4.9); Potassium, Blood 3.5 mmol/L (3.5-5.5); Sodium, Blood 133 mmol/L (136-145)
--- NOTE | 2019-07-27 16:29 | NUR ---
Assumed Care Patient transferred from room 350 to 302. (Marleny) is at bedside with patient and aware of transfer. Continuous biox on, 2L O2, tele notified of room changes, Home Cpap also transferred with patient. Bed in lowest position, call light near. Will continue to monitor.
--- NOTE | 2019-07-27 16:39 | NUR ---
TRANSFER OF CARE PATIENT TRANSFERED OUT OF SCU TO FLOOR. REPORT GIVEN TO JONO ALVARADO.
--- NOTE | 2019-07-27 16:41 | NUR ---
SHIFT SUMMARY PATIENT DENIES PAIN, NAUSEA, AND SHORTNESS OF BREATH. PATIENT WEARING 2L/NC SAME BASELINE TO MAINTAIN OXYGEN SATURATION ABOVE 92%. PATIENT UP ONE ASSIST STAND PIVOT TO CHAIR W/ GAIT BELT AND FWW. PT/OT WORKED WITH PATIENT. NO DIALYSIS TODAY. DISCHARGE LIKELY BY TUESDAY. AT BEDSIDE.
--- NOTE | 2019-07-27 18:38 | NUR ---
Shift Summary A/Ox3, patient transferred to room this afternoon. Has been in bed since the transfer, declined to dangle for dinner. remains at bedside for assistance. No acute changes.
--- NOTE | 2019-07-27 19:10 | NUR ---
ASSUMED CARE RECEIVED REPORT FROM CHRISTIANO DE LA CRUZ. ASSUMED CARE OF PT. AT THE BEDSIDE. PT COMFORTABLE, NO S/S ACUTE DISTRESS NOTED. O2 SATS STABLE. PT APPEARS TO BE IN GOOD SPIRITS. DENIES NEEDS AT THIS TIME. CALL LIGHT, POSSESSIONS IN REACH, BED IN LOWEST POSITION. WILL CONTINUE TO MONITOR.
--- NOTE | 2019-07-28 04:29 | NUR ---
SHIFT SUMMARY NO ACUTE CHANGES NOTED T/O NIGHT. PT AWAKE FOR MUCH OF THE NIGHT, WATCHED TV AND SPOKE TO FAMILY ON PHONE. A&O X3, CALLING APPROPRIATELY FOR NEEDS, SAT UP ON EDGE OF BED FOR A FEW MINUTES WITH MODERATE ASSISTANCE TO CHANGE POSITIONS. PT TOLERATED WELL. O2 SATS STABLE, BP'S REMAIN LOWER, STABLE. PT ASYMPTOMATIC. COVID-19 TEST RESULTS PENDING. PT SLEEPING COMFORTABLY AT THIS TIME. WAS MONITORED EVERY 1-2 HOURS WITH NEEDS MET. DENIES NEEDS AT THIS TIME. CALL LIGHT, POSSESSIONS IN REACH. WILL CONTINUE TO MONITOR UNTIL DAY RN ASSUMES CARE.
[2019-07-28 07:42] LABS: Albumin, Blood 2.6 g/dL (3.4-5.0); Anion Gap 6 mmol/L (6-16); Blood Urea Nitrogen 39 mg/dL (8-24); Bun/Creatinine Ratio 9.6 (12.0-20.0); CO2, Blood 28 mmol/L (21-32); Calcium, Blood 8.3 mg/dL (8.5-10.1); Chloride, Blood 99 mmol/L (98-108); Creatinine, Blood 4.08 mg/dL (0.60-1.20); Glomerular Filtration Rate 15 (60-); Glucose, Blood 181 mg/dL (70-99); Magnesium, Blood 1.8 mg/dL (1.6-2.4); Phosphorus, Blood 2.9 mg/dL (2.5-4.9); Potassium, Blood 3.8 mmol/L (3.5-5.5); Sodium, Blood 133 mmol/L (136-145)
[2019-07-28] MEDS ORDERED: NOVOLIN N100 UNIT/2 SC (14:47)
[2019-07-28] MEDS ORDERED: MIDO5 PO (14:54)
[2019-07-28] MEDS ORDERED: SPIR25 PO (14:55)
[2019-07-28] MEDS ORDERED: ENTRESTO 24 MG1 EAC2 PO (14:56)
--- NOTE | 2019-07-28 16:13 | NUR ---
DISCHARGE PT SECOND PINKY NEG, DIALYSIS INTAKE APPOINTMENT AND CHAIR TIME SCHEDULED WITH WANDA FOR TUESDAY. NEW MEDS FAXED TO [facility] AND SPOUSE PICKED UP. DISCHARGE INSTRUCTIONS, MEDICATIONS AND FOLLOW UP APPOINTMENTS REVIEWED WITH PT AND SPOUSE, QUESTIONS/CONCERNS ANSWERED. BOTH VERBALLY INDICATED UNDERSTANDING OF ALL INSTRUCTIONS RECEVIED. [facility] HERE TO TAKE HOME AT THIS TIME.
== END 2019-07-28 16:31 | disposition home or self-care (01) | DRG 673 ==
LOC: ER 20:55 → MEDS 20:56 → ER 20:56 → MEDS 07-06 01:50
PROVIDERS: Emergency Medicine; Internal Medicine; Internal Medicine Endocrinology, Diabetes & Metabolism; Internal Medicine Gastroenterology; Internal Medicine Nephrology; Nurse Practitioner Acute Care; ADMIT Internal Medicine
PROC: 0JH63XZ Insertion of Tunneled Vascular Access Device into Chest Subcutaneous Tissue and Fascia, Percutaneous Approach (ICD-10-PCS; principal; 2019-07-18)
PROC: 02HV33Z Insertion of Infusion Device into Superior Vena Cava, Percutaneous Approach (ICD-10-PCS; 2019-07-18)
PROC: B5181ZA Fluoroscopy of Superior Vena Cava using Low Osmolar Contrast, Guidance (ICD-10-PCS; 2019-07-18)
PROC: 5A1D70Z Performance of Urinary Filtration, Intermittent, Less than 6 Hours Per Day (ICD-10-PCS; 2019-07-18)
DX: N17.9 Acute kidney failure, unspecified (principal); G92 Toxic encephalopathy; I50.23 Acute on chronic systolic (congestive) heart failure; E87.1 Hypo-osmolality and hyponatremia; E72.20 Disorder of urea cycle metabolism, unspecified; A04.72 Enterocolitis due to Clostridium difficile, not specified as recurrent; Z68.41 Body mass index [BMI] 40.0-44.9, adult; I13.2 Hypertensive heart and chronic kidney disease with heart failure and with stage 5 chronic kidney disease, or end stage renal disease; Z79.82 Long term (current) use of aspirin; N18.6 End stage renal disease; N25.81 Secondary hyperparathyroidism of renal origin; Z79.4 Long term (current) use of insulin; G47.33 Obstructive sleep apnea (adult) (pediatric); I48.0 Paroxysmal atrial fibrillation; H40.9 Unspecified glaucoma; F41.1 Generalized anxiety disorder; E11.22 Type 2 diabetes mellitus with diabetic chronic kidney disease; I25.10 Atherosclerotic heart disease of native coronary artery without angina pectoris; Z87.891 Personal history of nicotine dependence; E88.09 Other disorders of plasma-protein metabolism, not elsewhere classified; E66.01 Morbid (severe) obesity due to excess calories; I25.5 Ischemic cardiomyopathy; K21.9 Gastro-esophageal reflux disease without esophagitis; N40.0 Benign prostatic hyperplasia without lower urinary tract symptoms; I25.2 Old myocardial infarction; R62.7 Adult failure to thrive; Z85.46 Personal history of malignant neoplasm of prostate; R34 Anuria and oliguria; R41.89 Other symptoms and signs involving cognitive functions and awareness; Z66 Do not resuscitate; Z79.02 Long term (current) use of antithrombotics/antiplatelets; Z99.2 Dependence on renal dialysis
CPT/HCPCS: 0097U; 36415; 36558; 36600; 51702; 70450; 71045; 71046; 71250; 76700; 76857; 76937; 80053; 80069; 80074; 81001; 82140; 82248; 82803; 82947; 83735; 83880; 84100; 84132; 84145; 84484; 85014; 85018; 85025; 85610; 86317; 87086; 87493; 92526; 92610; 93005; 93010; 93308; 93321; 94640; 94762; 96374; 97110; 97112; 97162; 97166; 97530; 97535; 99152; 99153; 99285-25; A9270; A9270-GY; C1750; C1751; C1769; C1894; G0103; J0696; J0881; J1644; J1650; J1940; J1956; J2250; J2310; J2405; J3010; J3480; J7030; J7040; J7050; P9046; U0002; U0003

== ENCOUNTER 2019-10-30 14:42 | Inpatient (IN) | payer MEDICARE, OTHER ==
[~2019-10-30] VITALS: Ht 177.8 cm; Wt 124.9 kg
[~2019-10-30 14:42] MED LIST changes: +ANORO ELLIPTA1 EAC1 INH; +B-121000 MC3 PO; -CENTRUM SILVER1 EAC2 PO; +Calcium Acetat667 MG PO; +ENTRESTO 24 MG1 EAC2 PO; +HUMALOG KW100 UNIT/1 SC; +HUMULIN N100 UNIT/5 SC; -INSULIN LI100 UNIT/8 SC; +MELATONIN5 M1 PO; -METO50ER PO; +MIDO5 PO; +NEPRO CARB STE237 ML PO; +NYSTOP15 GM TOP; +RENAL VITAMIN0.8 MG PO; +SPIR25 PO; +TOPROL XL200 MG PO; +Temazepam15 MG PO; +Vancocin HCl125 MG PO
[2019-10-30 15:52] LABS: BASOPHILS ABSOLUTE AUTO 0.06 K/mm3 (0.00-0.23); BASOPHILS PERCENT AUTO 1 % (0-2); EOSINOPHILS PERCENT AUTO 1 % (0-6); Hemoglobin 13.4 g/dL (13.5-17.5); IMMATURE GRAN ABSOLUTE AUTO 0.04 K/mm3 (0.00-0.10); IMMATURE GRAN PERCENT AUTO 1 % (0-1); LYMPHOCYTES ABSOLUTE AUTO 1.21 K/mm3 (0.84-5.20); LYMPHOCYTES PERCENT AUTO 15 % (21-46); MONOCYTES ABSOLUTE AUTO 1.38 K/mm3 (0.16-1.47); MONOCYTES PERCENT AUTO 17 % (4-13); Mean Corpuscular HGB 29.8 pg (26.0-34.0); Mean Corpuscular HGB Conc 29.8 g/dL (31.5-36.5); Mean Corpuscular Volume 100 fL (80-100); Mean Platelet Volume 10.8 fL (9.1-12.4); NEUTROPHILS ABSOLUTE AUTO 5.57 K/mm3 (1.96-9.15); NEUTROPHILS PERCENT AUTO 67 % (41-73); NRBC ABSOLUTE 0.09 K/mm3 (0.00-0.02); NRBC Auto 1.1 /100 WBC (0.0-0.2); Platelet Count 108 K/mm3 (150-400); RDW Coefficient Variation 20.4 % (11.7-14.2); RDW Standard Deviation 70.9 fL (35.1-46.3); Red Blood Cell Count 4.49 M/mm3 (4.30-5.90); White Blood Cell Count 8.36 K/mm3 (4.00-11.30)
[2019-10-30 16:03] LABS: Alanine Aminotransfer (ALT/SGP 17 U/L (12-78); Albumin, Blood 2.6 g/dL (3.4-5.0); Albumin/Globulin Ratio 0.5 (0.8-1.8); Alk Phos 153 U/L (50-136); Anion Gap 7 mmol/L (6-16); Aspartate Aminotrans (AST/SGOT 26 U/L (12-37); Bilirubin, Total 0.7 mg/dL (0.1-1.0); Blood Urea Nitrogen 32 mg/dL (8-24); Bun/Creatinine Ratio 8.5 (12.0-20.0); CO2, Blood 32 mmol/L (21-32); Calcium, Blood 8.9 mg/dL (8.5-10.1); Chloride, Blood 99 mmol/L (98-108); Creatinine, Blood 3.77 mg/dL (0.60-1.20); Ethanol (Alcohol), Blood, Med <3 mg/dL; Globulin, Blood 4.9 g/dL (2.2-4.0); Glomerular Filtration Rate 16 (60-); Glucose, Blood 155 mg/dL (70-99); Magnesium, Blood 2.3 mg/dL (1.6-2.4); Phosphorus, Blood 4.8 mg/dL (2.5-4.9); Potassium, Blood 3.9 mmol/L (3.5-5.5); Sodium, Blood 138 mmol/L (136-145); Total Protein, Blood 7.5 g/dL (6.4-8.2)
[2019-10-30 16:04] LABS: International Normalized Ratio 1.33
[2019-10-30 16:05] LABS: PCO2 Arterial 59.3 mmHg (35-45); PO2 Arterial 85.1 mmHg (80-100); pH Blood Arterial 7.36 (7.35-7.45)
[2019-10-30] MEDS ORDERED: ENTRESTO 24 MG1 EACH PO (18:43)
[2019-10-30] MEDS ORDERED: TRIDESILON60 GM TOP (18:44)
[2019-10-30] MEDS ORDERED: XOPENEX0.63 MG/3 INH (18:45)
[2019-10-31 04:36] LABS: BASOPHILS ABSOLUTE AUTO 0.08 K/mm3 (0.00-0.23); BASOPHILS PERCENT AUTO 1 % (0-2); EOSINOPHILS ABSOLUTE AUTO 0.15 K/mm3 (0.00-0.68); EOSINOPHILS PERCENT AUTO 1 % (0-6); Hematocrit 44.4 % (37.0-53.0); Hemoglobin 13.5 g/dL (13.5-17.5); IMMATURE GRAN ABSOLUTE AUTO 0.06 K/mm3 (0.00-0.10); IMMATURE GRAN PERCENT AUTO 1 % (0-1); LYMPHOCYTES ABSOLUTE AUTO 1.44 K/mm3 (0.84-5.20); LYMPHOCYTES PERCENT AUTO 13 % (21-46); MONOCYTES PERCENT AUTO 15 % (4-13); Mean Corpuscular HGB 30.1 pg (26.0-34.0); Mean Corpuscular HGB Conc 30.4 g/dL (31.5-36.5); Mean Corpuscular Volume 99 fL (80-100); Mean Platelet Volume 10.7 fL (9.1-12.4); NEUTROPHILS PERCENT AUTO 70 % (41-73); NRBC ABSOLUTE 0.07 K/mm3 (0.00-0.02); NRBC Auto 0.6 /100 WBC (0.0-0.2); Platelet Count 112 K/mm3 (150-400); RDW Coefficient Variation 20.2 % (11.7-14.2); RDW Standard Deviation 69.1 fL (35.1-46.3); Red Blood Cell Count 4.48 M/mm3 (4.30-5.90); White Blood Cell Count 11.03 K/mm3 (4.00-11.30)
[2019-10-31 04:54] LABS: Albumin, Blood 2.7 g/dL (3.4-5.0); Anion Gap 5 mmol/L (6-16); Blood Urea Nitrogen 25 mg/dL (8-24); Bun/Creatinine Ratio 7.3 (12.0-20.0); CO2, Blood 35 mmol/L (21-32); Calcium, Blood 8.9 mg/dL (8.5-10.1); Chloride, Blood 97 mmol/L (98-108); Creatinine, Blood 3.42 mg/dL (0.60-1.20); Glomerular Filtration Rate 18 (60-); Glucose, Blood 75 mg/dL (70-99); Magnesium, Blood 2.2 mg/dL (1.6-2.4); Phosphorus, Blood 4.1 mg/dL (2.5-4.9); Potassium, Blood 3.7 mmol/L (3.5-5.5); Sodium, Blood 137 mmol/L (136-145)
--- NOTE | 2019-10-31 07:30 | NUR ---
SHIFT SUMMARY PT ALERTNESS VARIES GREATLY; AT TIMES CONFUSED AND PULLING ON LINES; VSS; DIALYSIS IN ROOM W/ 2L REMOVED; PITTING ANASARCA IN TRUNK; 2+ EDEMA IN BLE; DR. LAWRENCE AT BEDSIDE APPROXIMATELY @ 0000; O2 SATS >93 ON 3L; BIPAP IN PLACE 2-3 HRS, PT C/O MASK; AT BEDSIDE THIS AM AND SHE BROUGHT HOME BIPAP W/ NOSE PIECE; NO DISTRESS NOTED T/O SHIFT; PT CURRENTLY RESTING COMFORTABLY; REPORT GIVEN TO DAY SHIFT RN; CALL LIGHT IN REACH; BED IN LOWEST POSITION.
--- NOTE | 2019-10-31 11:26 | NUR ---
ASSUME CARE: PT ALERT AND AWAKE UPON TAKING VITALS HRR PACED 100'S, BP SYSTOLIC 98, SATS ABOVE 94% ON 3L OF O2. METOPROLOL, IMDUR AND ENTERESTO WAS HELD BP BELOW [address] JOEL AWARE AND MADE SOME CHANGES ON PT'S MEDS. PT WAS ABLE TO ANSWER TO QUESTIONS WITH SOME CONFUSION, EASILY FALLS ASLEEP. PT CBG WAS LOW AT 61 THIS AM PT WAS ABLE TO DRINK A CUP OF OJ CBG WENT UP TO 73, PT TO RESUME DIET. PT WAS SWITCHED TO HOME BIPAP (NASAL) PT WAS STRUGGLING WITH SLEEP APNEA SATS UP AND DOWN RANGING 84-94% RT WAS CALLED SWICHED PT TO A MASK AND INCREASES O2 BLEED TO 6L. PT NOW 02 REMAINED ABOVE 90%. AT BEDSIDE. TO START PT ON LACTULOSE. WILL MONITOR PT
--- NOTE | 2019-10-31 14:41 | NUR ---
NATAN ELEMENTARY ART TEACHER IN THE ROOM AT THIS TIME BROUGHT IN NEW MASK FOR PT'S HOME BIPAP. BIPAP SETTINGS ARE CORRECT AND CURRENT AND THAT THE MAJOR ISSUE IS PT IS HAVING APNEA EPISODES AND MORE THAN 98% LEAK ON THE NASAL TUBING. PT IS NOW MORE COMFORTABLE ON THE NEW MASK NO ATTEMPTS YET OF TRYING TO TAKE IT OFF, SATS REMAINED ABOVE 95% WITH 3L OF O2. PT NOW RESTING IN BED ATE YOGURT FOR LUNCH. HAD A MEDIUM BOWEL MOVEMENT AFTER FIRST DOSE OF LACTULOSE. AT BEDSIDE, WILL MONITOR PT.
--- NOTE | 2019-10-31 18:21 | NUR ---
PT SUMMARY: SEE PREVIOUS NOTES: PT MORE COMFORTABLE WITH NEW BIPAP MASK AT THIS TIME. AT BEDSIDE HANDS ON WITH PT CARE. VITALS HRR 100'S PACED, BP SYSTOLIC 120'S, SATS ABOVE 95% ON BIPAP ALTERNATING 3L OF O2 CANNULA WHEN EATING. AFEBRILE. PT ATE DINNER WITH NO ISSUES, HAD SOME YOGURT FOR LUNCH. PT WAS ITCHING ALL OVER CALLED DR COTTO FOR ANTI ITCHING MEDICINE, AWAITING FOR CALL BACK. NO OTHER ISSUES ENCOUNTERED FOR THE SHIFT, REMAINED ALERT, STILL CONFUSED AT TIMES ESPECIALLY UPON WAKING UP, WILL REPORT TO ONCOMING SHIFT.
[2019-11-01 04:21] LABS: Hematocrit 40.2 % (37.0-53.0); Hemoglobin 12.2 g/dL (13.5-17.5)
[2019-11-01 04:40] LABS: Albumin, Blood 2.4 g/dL (3.4-5.0); Anion Gap 8 mmol/L (6-16); Blood Urea Nitrogen 33 mg/dL (8-24); Bun/Creatinine Ratio 7.6 (12.0-20.0); CO2, Blood 32 mmol/L (21-32); Calcium, Blood 8.8 mg/dL (8.5-10.1); Chloride, Blood 98 mmol/L (98-108); Creatinine, Blood 4.34 mg/dL (0.60-1.20); Glomerular Filtration Rate 14 (60-); Glucose, Blood 141 mg/dL (70-99); Magnesium, Blood 2.2 mg/dL (1.6-2.4); Phosphorus, Blood 4.8 mg/dL (2.5-4.9); Sodium, Blood 138 mmol/L (136-145)
--- NOTE | 2019-11-01 05:48 | NUR ---
PT RESTED COMFORTABLY THROUGH NIGHT CONSISTENTLY CONFUSED THROUGH NIGHT BIPAP AT HS CBG 141, 120 1200ML FLUID RESTRICTION PT OLIGURIC OR ANEURIC - BRIEF REMAINED DRY THROUGH NIGHT - BLADDER SCAN READS 75ML. NO BM 20G RAC SL/R CHEST WALL PERMACATH REMAINS IN PLACE VSS NO C/O PAIN DNR PURPLE BAND PLACED ON R WRIST CALL LIGHT WITHIN REACH, BED IN LOWEST POSIITON. WILL CONTINUE TO MONITOR.
--- NOTE | 2019-11-01 18:21 | NUR ---
SHIFT NOTE PT HAS HAD INCREASED AND IMPROVED AMS T/O THE SHIFT. PT DOES REST WELL WITH CPAP WHEN HE DOES WEAR IT. HYPOTENSION NOTED SINCE RETURNING FROM DIALYSIS WHICH IS FREQUENTLY RECHECKED. IS AT BEDSIDE T/O THE DAY. MEPIPLXE PLACED TO COCYX FOR STAGE 1 BREAKDOWN.
--- NOTE | 2019-11-01 19:03 | NUR ---
Met with patient and . we have had extensive discussions on past admits. pt alert very hard of hearing some difficulty tracking conversation. headed home soon. Review of heis current status and his polst. pt had dnr braclett on pulled it off. pt adamant he wants cpr and every chance. review of DNI choice he states he does not want to be hooked to a machine. Advised that we need to do advance directive and poslt and review needs if he has a successful reponse to cpr. We plan to meet tomorrow to do advance directive and plan up to and including when its time for hospice. They have little interest in hospice and want full care. Discussed what happens after cpr and time on a ventilator. states that if he does not respond to post recussitaion will withdraw care and put on end of life care. We have have discussed possible futility based on his comorbid conditions they are still wanting to stay the course. Advised we respect their beliefs and wishes. Let her know she can call us to discuss her fears and concerns. [facility] for [facility] future.
[2019-11-02 04:38] LABS: Albumin, Blood 2.7 g/dL (3.4-5.0); Anion Gap 5 mmol/L (6-16); Blood Urea Nitrogen 22 mg/dL (8-24); Bun/Creatinine Ratio 5.9 (12.0-20.0); CO2, Blood 33 mmol/L (21-32); Calcium, Blood 8.5 mg/dL (8.5-10.1); Chloride, Blood 99 mmol/L (98-108); Creatinine, Blood 3.75 mg/dL (0.60-1.20); Glomerular Filtration Rate 16 (60-); Glucose, Blood 158 mg/dL (70-99); Magnesium, Blood 2.1 mg/dL (1.6-2.4); Phosphorus, Blood 4.2 mg/dL (2.5-4.9); Potassium, Blood 3.6 mmol/L (3.5-5.5); Sodium, Blood 137 mmol/L (136-145)
--- NOTE | 2019-11-02 06:05 | NUR ---
SHIFT SUMMARY PT SLEEPING IN ROOM COMFORTABLY AT THIS TIME. NO ACUTE CHANGES IN STATUS T.O NIGHT. PT SLEPT IN SHORT PERIODS, WOKE FREQUENTLY TO PULL OFF HOME CPAP. PT APPEARED TO BE MORE CONFUSED EARLY IN SHIFT, BUT HAS STARTED TO BECOME MORE ALERT THIS AM. RESP EVEN UNLABORED ON 4L NC W/ SATS >92%. PT DENIED ANY CP OR SOB T/O NIGHT. PT ATTEMPTED 2 BM ON BEDPAN. NO SUCCESS. DENIED OTHER NEEDS. CALL LIGHT IN REACH.
[2019-11-02 15:11] LABS: PCO2 Arterial 59.9 mmHg (35-45); PO2 Arterial 75.9 mmHg (80-100); pH Blood Arterial 7.36 (7.35-7.45)
--- NOTE | 2019-11-02 17:12 | NUR ---
Met with today to review polst and plan of care. Afer many discussion patient and want full recusitation. They want to fight. Gently review of all possible trajectories of his care. Review of cardiac arrest and if we get a pulse what full recusitation looks like. Review of possible events on dialysis, Review of ventilator care, Review of anoxia and debility. Pt and are basing their choices on a strong belief to fight to the end. We had a discussion of suffering and caregiver stress. states hospice came out to speak with her and they felt it was not for them. Reenforced that we will repect their beliefs and wishes. Encouraged to speak about her day to day life. She is paying 2400.00 a month on transport to dialysis. She arnol and purchased a van and planned to have it upgraded. when she found out how much it cost she decided go buy a second used van. She feels she can get him to his chair and to dialysis. She is hopful brenda she get get him out more for some outings with the van. Displying si/s of significant caregiver stress and lack of acceptance. continue thraputic visits and reminisance and work with lining strap closer on getting her to accept prognosis. She feels his will to live with pull him through. pt kps score is 20%. Will try to get to tell me who her support system is and see if we take another angle.
[2019-11-03 03:40] LABS: BASOPHILS ABSOLUTE AUTO 0.05 K/mm3 (0.00-0.23); BASOPHILS PERCENT AUTO 1 % (0-2); EOSINOPHILS ABSOLUTE AUTO 0.13 K/mm3 (0.00-0.68); EOSINOPHILS PERCENT AUTO 2 % (0-6); Hematocrit 36.2 % (37.0-53.0); Hemoglobin 10.9 g/dL (13.5-17.5); IMMATURE GRAN ABSOLUTE AUTO 0.03 K/mm3 (0.00-0.10); IMMATURE GRAN PERCENT AUTO 0 % (0-1); LYMPHOCYTES ABSOLUTE AUTO 1.26 K/mm3 (0.84-5.20); LYMPHOCYTES PERCENT AUTO 16 % (21-46); MONOCYTES ABSOLUTE AUTO 1.22 K/mm3 (0.16-1.47); MONOCYTES PERCENT AUTO 16 % (4-13); Mean Corpuscular HGB 30.2 pg (26.0-34.0); Mean Corpuscular HGB Conc 30.1 g/dL (31.5-36.5); Mean Corpuscular Volume 100 fL (80-100); Mean Platelet Volume 9.8 fL (9.1-12.4); NEUTROPHILS ABSOLUTE AUTO 5.08 K/mm3 (1.96-9.15); NEUTROPHILS PERCENT AUTO 65 % (41-73); Platelet Count 107 K/mm3 (150-400); RDW Standard Deviation 72.4 fL (35.1-46.3); Red Blood Cell Count 3.61 M/mm3 (4.30-5.90); White Blood Cell Count 7.77 K/mm3 (4.00-11.30)
[2019-11-03 03:57] LABS: Albumin, Blood 2.4 g/dL (3.4-5.0); Anion Gap 7 mmol/L (6-16); Blood Urea Nitrogen 29 mg/dL (8-24); Bun/Creatinine Ratio 6.6 (12.0-20.0); CO2, Blood 31 mmol/L (21-32); Chloride, Blood 101 mmol/L (98-108); Creatinine, Blood 4.38 mg/dL (0.60-1.20); Glomerular Filtration Rate 14 (60-); Glucose, Blood 156 mg/dL (70-99); Phosphorus, Blood 4.3 mg/dL (2.5-4.9); Potassium, Blood 3.7 mmol/L (3.5-5.5); Sodium, Blood 139 mmol/L (136-145)
--- NOTE | 2019-11-03 06:49 | NUR ---
SHIFT SUMMARY PT RESTING IN ROOM COMFORTABLY AT THIS TIME. NO ACUTE CHANGES IN STATUS T/O NIGHT. PT SLEPT WELL AND WORE CPAP FOR MOST OF NIGHT. RESP EVEN UNLABORED ON 5L NC W/ SATS >92%. PT DENIED PAIN. PT CONTINUED TO HAVE CONFUSION AND PULLED AT LINES PERIODICALLY FURING NIGHT. PT IS MOSTLY REDIRECTABLE. PT HAD 2 LIQUID BM'S THIS SHIFT. APPEARS TO BE MORE ALERT AND ORIENTED THIS AM. CALL LIGHT IN REACH, BED ALARM ON FOR SAFETY.
--- NOTE | 2019-11-03 09:53 | NUR ---
Following pt's use of bedpan and bowel movement, he was taken to dialysis at 0935.
--- NOTE | 2019-11-03 16:22 | NUR ---
SHIFT NOTE PT HAS HAD A STEADY DECLINE IN MENTATION FOR THE LAST 3 DAYS THIS RN HAS PROVIDED CARE. PT DOES WAKE TO VERBAL STIMULI, BUT IS INCREASINGLY DROWSY. PT HAS BEEN ON AND OFF HIS CPAP MACHINE WHICH O2 AND CPAP ARE TOLERATED WELL. S/O WAS CONCERNED THAT PT SHOULD HAVE LACTULOSE D/C OR CHANGED, DR SALAZAR WAS CONSULTED AND DOSING WAS NOT CHANGED PT HAS NOT HAD INCREASED AMOUNT OF STOOLS. VANCOMYCIN PO EVERY 3 DAYS WAS ORDERED FOR C-DIFF PREVENTION PER HIS HOME MEDICATIONS.
[2019-11-04 04:26] LABS: Hematocrit 42.4 % (37.0-53.0); Hemoglobin 12.6 g/dL (13.5-17.5)
[2019-11-04 04:50] LABS: Albumin, Blood 2.9 g/dL (3.4-5.0); Anion Gap 6 mmol/L (6-16); Blood Urea Nitrogen 22 mg/dL (8-24); Bun/Creatinine Ratio 5.7 (12.0-20.0); CO2, Blood 31 mmol/L (21-32); Calcium, Blood 8.9 mg/dL (8.5-10.1); Chloride, Blood 97 mmol/L (98-108); Creatinine, Blood 3.88 mg/dL (0.60-1.20); Glomerular Filtration Rate 16 (60-); Glucose, Blood 169 mg/dL (70-99); Magnesium, Blood 2.3 mg/dL (1.6-2.4); Phosphorus, Blood 4.3 mg/dL (2.5-4.9); Potassium, Blood 3.8 mmol/L (3.5-5.5); Sodium, Blood 134 mmol/L (136-145)
--- NOTE | 2019-11-04 05:23 | NUR ---
SHIFT SUMMARY PT RESTING IN ROOM COMFORTABLY AT THIS TIME. NO ACUTE CHANGES IN STATUS T/O NIGHT. PT SLEPT WELL AND REFUSE CPAP ENTIRE NIGHT. RESP EVEN UNLABORED ON 5L NC W/ SATS >92%. PT DENIED PAIN. PT CONTINUED TO HAVE CONFUSION BUT WAS MORE ALERT T/O MAJORITY OF NIGHT. PT REDIRECTABLE AND HAD 2 LIQUID BM'S. PT WAS ABLE TO HELP IN ALL TURNS DURING NIGHT W/ LITTLE ASSIST. DENIED OTHER NEEDS. CALL LIGHT IN REACH. BED ALARM ON.
--- NOTE | 2019-11-04 19:43 | NUR ---
SUMMARY NO ACUTE CHANGES NOTED, CARDIAC MEDS/BUMEX HELD DUE TO HYPOTENSION THIS AM, NOTIFIED. PT REMAINS CONFUSED @ TIMES, 4 L VIA NC, CPAP ENC WHILE SLEEPING, TOLERATING PO INTAKE, LOOSE STOOLS NOTED DUE TO LACTULOSE. PT'S IS AT THE BEDSIDE AND ASSISTS WITH CARE. CALL LIGHT IN REACH, REPORT GIVEN TO KIERRA ALVARADO.
--- NOTE | 2019-11-05 02:20 | NUR ---
ASSUMED CARE AT 1900 . DENIES PAIN. VERY SLEEPY AND HELD MELATONIN. AROUSED MORE VIGOROUSLY AND STILL SOME CONFUSSION WHEN FIRST AWAKE. MORE INTERACTIVE WHEN AWAKE LONGER. AND WATCHING SOME TV AND DISCUSSING SHOW ON THE SCREEN . MAKING SOME CONFUSED STATEMENTS ABOUT THE TV SCREEN. 2LNC HAVE MAINTAINED WNL SAT. WHEN ON HOME CPAP 3L BLEED IN . FEW DIFFERENT BP READINGS DEPENDING ON WRIST OR UPPER ARM. NO LIQ STOOL .
[2019-11-05 04:05] LABS: Hematocrit 41.4 % (37.0-53.0); Hemoglobin 12.5 g/dL (13.5-17.5)
[2019-11-05 04:24] LABS: Albumin, Blood 2.6 g/dL (3.4-5.0); Anion Gap 6 mmol/L (6-16); Blood Urea Nitrogen 30 mg/dL (8-24); Bun/Creatinine Ratio 6.3 (12.0-20.0); CO2, Blood 30 mmol/L (21-32); Calcium, Blood 9.2 mg/dL (8.5-10.1); Chloride, Blood 98 mmol/L (98-108); Creatinine, Blood 4.76 mg/dL (0.60-1.20); Glomerular Filtration Rate 12 (60-); Glucose, Blood 134 mg/dL (70-99); Magnesium, Blood 2.2 mg/dL (1.6-2.4); Phosphorus, Blood 4.6 mg/dL (2.5-4.9); Potassium, Blood 4.2 mmol/L (3.5-5.5); Sodium, Blood 134 mmol/L (136-145)
--- NOTE | 2019-11-05 05:28 | NUR ---
COMMON TO HAVE 89-93 % ON 3L BLEED IN AND WHEN ON NC 2L AND MORE AWAKE. REPOSITIONED THRU NOC ON SCHEDULE Q 2 HR, MANY BOUTS OF CONFUSION AWAKENS. PULLS OFF ALL TELE PATCHES. NOTED 100% PACED . 110 RATE COMMON. DCD TELE PER ORDER. KNOWS NAME, AND WIFES NAME ..OTHERWISE CONFUSED
[2019-11-05] MEDS ORDERED: ACET325 PO (12:03)
[2019-11-05] MEDS ORDERED: Enulose10 GM/15 M PO (12:11)
--- NOTE | 2019-11-05 13:00 | NUR ---
REPORT RECEIVED EARLIER FROM COMPOUND WORKER WHILE PT IN DIALYSIS. PICKED PT UP APPROX 1230 FROM DIALYSIS AND TRANSFERRED TO ROOM 327. AT BEDSIDE ON ARRIVAL TO ROOM. ASSISTED TO BEDPAN AND THEN LUNCH OFFERED. ASSISTING WITH MEAL. WILL BE DISCHARGING LATER TODAY.
--- NOTE | 2019-11-05 16:45 | NUR ---
DISCHARGE INSTRUCTIONS DISCUSSED WITH PTS AND SHE EXPRESSED UNDERSTANDING. PT SLEEPING ON AND OFF SINCE ARRIVAL TO ROOM. [facility] HERE TO PICK PT UP. YOMI LIFT INTO W/C. TO [facility] VIA W/C.
== END 2019-11-05 16:38 | disposition home health service (06) | DRG 291 ==
LOC: ER 14:42 → PCU 14:43 → MEDS 11-05 09:37 → ENPENDDIS 11-05 10:59 → MEDS 11-05 16:38
PROVIDERS: Internal Medicine; Internal Medicine Nephrology; Nurse Practitioner Acute Care; Physician Assistant; ADMIT Hospitalist
PROC: 5A1D70Z Performance of Urinary Filtration, Intermittent, Less than 6 Hours Per Day (ICD-10-PCS; principal; 2019-11-01)
PROC: 5A1D70Z Performance of Urinary Filtration, Intermittent, Less than 6 Hours Per Day (ICD-10-PCS; 2019-11-03)
DX: I13.2 Hypertensive heart and chronic kidney disease with heart failure and with stage 5 chronic kidney disease, or end stage renal disease (principal); N18.6 End stage renal disease; G92 Toxic encephalopathy; I50.23 Acute on chronic systolic (congestive) heart failure; E72.20 Disorder of urea cycle metabolism, unspecified; A04.71 Enterocolitis due to Clostridium difficile, recurrent; E87.1 Hypo-osmolality and hyponatremia; Z20.828 Contact with and (suspected) exposure to other viral communicable diseases; E11.22 Type 2 diabetes mellitus with diabetic chronic kidney disease; Z99.2 Dependence on renal dialysis; J44.9 Chronic obstructive pulmonary disease, unspecified; G47.33 Obstructive sleep apnea (adult) (pediatric); Z99.81 Dependence on supplemental oxygen; I48.0 Paroxysmal atrial fibrillation; Z79.4 Long term (current) use of insulin; N40.0 Benign prostatic hyperplasia without lower urinary tract symptoms; D63.1 Anemia in chronic kidney disease; Z95.0 Presence of cardiac pacemaker; Z90.2 Acquired absence of lung [part of]; Z87.891 Personal history of nicotine dependence; Z66 Do not resuscitate; E11.65 Type 2 diabetes mellitus with hyperglycemia; E88.09 Other disorders of plasma-protein metabolism, not elsewhere classified; L29.9 Pruritus, unspecified; L98.419 Non-pressure chronic ulcer of buttock with unspecified severity; R06.89 Other abnormalities of breathing
CPT/HCPCS: 36415; 36600; 51798; 70450; 71045; 80053; 80069; 82140; 82803; 82947; 83735; 83880; 84100; 85014; 85018; 85025; 85610; 93005; 93010; 93280; 94640; 94660; 94667; 94762; 96372; 96374; 96375; 97110; 97162; 97530; 99285-25; A9270; A9270-GY; G0378; G0480; J1200; J1644; J1940; P9046

== ENCOUNTER → 2019-11-15 | Outpatient (CLI) | payer MEDICARE, OTHER ==
[~2019-11-15] MED LIST changes: +ACET325 PO; +Ativan1 MG PO; +ENTRESTO 24 MG1 EACH PO; +Enulose10 GM/15 M PO; +LACT10SY PO; -MIDO5 PO; +Midodrine HCl10 MG PO; +TRIDESILON60 GM TOP; +XOPENEX0.63 MG/3 NEB
[2019-11-15 15:07] LABS: BASOPHILS ABSOLUTE AUTO 0.07 K/mm3 (0.00-0.23); BASOPHILS PERCENT AUTO 1 % (0-2); EOSINOPHILS ABSOLUTE AUTO 0.12 K/mm3 (0.00-0.68); EOSINOPHILS PERCENT AUTO 2 % (0-6); Hematocrit 44.4 % (37.0-53.0); Hemoglobin 13.1 g/dL (13.5-17.5); IMMATURE GRAN ABSOLUTE AUTO 0.03 K/mm3 (0.00-0.10); IMMATURE GRAN PERCENT AUTO 0 % (0-1); LYMPHOCYTES ABSOLUTE AUTO 1.33 K/mm3 (0.84-5.20); LYMPHOCYTES PERCENT AUTO 19 % (21-46); MONOCYTES ABSOLUTE AUTO 1.05 K/mm3 (0.16-1.47); MONOCYTES PERCENT AUTO 15 % (4-13); Mean Corpuscular HGB Conc 29.5 g/dL (31.5-36.5); Mean Corpuscular Volume 102 fL (80-100); Mean Platelet Volume 12.2 fL (9.1-12.4); NEUTROPHILS ABSOLUTE AUTO 4.31 K/mm3 (1.96-9.15); NEUTROPHILS PERCENT AUTO 63 % (41-73); NRBC ABSOLUTE 0.02 K/mm3 (0.00-0.02); NRBC Auto 0.3 /100 WBC (0.0-0.2); Platelet Count 77 K/mm3 (150-400); RDW Coefficient Variation 21.3 % (11.7-14.2); RDW Standard Deviation 78.1 fL (35.1-46.3); Red Blood Cell Count 4.37 M/mm3 (4.30-5.90); White Blood Cell Count 6.91 K/mm3 (4.00-11.30)
[2019-11-15 15:31] LABS: Alanine Aminotransfer (ALT/SGP 18 U/L (12-78); Albumin, Blood 2.7 g/dL (3.4-5.0); Albumin/Globulin Ratio 0.6 (0.8-1.8); Alk Phos 136 U/L (50-136); Anion Gap 8 mmol/L (6-16); Aspartate Aminotrans (AST/SGOT 18 U/L (12-37); Bilirubin, Total 0.9 mg/dL (0.1-1.0); Blood Urea Nitrogen 20 mg/dL (8-24); Bun/Creatinine Ratio 6.3 (12.0-20.0); CHOL/HDL RATIO 4.2; CO2, Blood 34 mmol/L (21-32); Calcium, Blood 9.2 mg/dL (8.5-10.1); Chloride, Blood 100 mmol/L (98-108); Cholesterol 133 mg/dL (50-200); Creatinine, Blood 3.18 mg/dL (0.60-1.20); Globulin, Blood 4.7 g/dL (2.2-4.0); Glomerular Filtration Rate 20 (60-); Glucose, Blood 104 mg/dL (70-99); HDL Cholesterol 32 mg/dL (>39); LDL/HDL RATIO 2.5; Low Density Lipoprotein Chol 80 mg/dL (0-110); Potassium, Blood 3.1 mmol/L (3.5-5.5); Sodium, Blood 142 mmol/L (136-145); Total Protein, Blood 7.4 g/dL (6.4-8.2); Triglycerides 107 mg/dL (30-160); Very Low Density Lipoprot Chol 21 mg/dL (6-32)
== END ==
LOC: LAB SHORT 12:43 → LAB 12:43
PROVIDERS: Hospitalist
DX: E11.42 Type 2 diabetes mellitus with diabetic polyneuropathy (principal); E78.49 Other hyperlipidemia; I10 Essential (primary) hypertension
CPT/HCPCS: 80053; 80061; 83036; 84443; 85025

== ENCOUNTER 2019-11-17 19:06 | Inpatient (IN) | payer MEDICARE, OTHER ==
[~2019-11-17] VITALS: Ht 177.8 cm; Wt 122.3 kg
[~2019-11-17 19:06] MED LIST changes: -ACET325 PO; -ANORO ELLIPTA1 EAC1 INH; -Aspir 8181 MG PO; -Ativan1 MG PO; -CLOP75 PO; -Calcium Acetat667 MG PO; -ENTRESTO 24 MG1 EACH PO; -Enulose10 GM/15 M PO; -HUMALOG KW100 UNIT/1 SC; -HUMULIN N100 UNIT/5 SC; -Imdur60 MG PO; -LACT PO; -LACT10SY PO; -MELATONIN5 M1 PO; -Midodrine HCl10 MG PO; -QVAR REDIHALE10.6 G3 INH; -RENAL VITAMIN0.8 MG PO; -TOPROL XL200 MG PO; -Travatan Z5 ML BOTHEYES; -Vancocin HCl125 MG PO; -XOPENEX0.63 MG/3 NEB
[2019-11-17 19:58] LABS: BASOPHILS ABSOLUTE AUTO 0.05 K/mm3 (0.00-0.23); BASOPHILS PERCENT AUTO 1 % (0-2); EOSINOPHILS ABSOLUTE AUTO 0.09 K/mm3 (0.00-0.68); EOSINOPHILS PERCENT AUTO 1 % (0-6); Hematocrit 43.8 % (37.0-53.0); Hemoglobin 13.2 g/dL (13.5-17.5); IMMATURE GRAN ABSOLUTE AUTO 0.01 K/mm3 (0.00-0.10); IMMATURE GRAN PERCENT AUTO 0 % (0-1); LYMPHOCYTES ABSOLUTE AUTO 1.13 K/mm3 (0.84-5.20); LYMPHOCYTES PERCENT AUTO 15 % (21-46); MONOCYTES ABSOLUTE AUTO 0.97 K/mm3 (0.16-1.47); MONOCYTES PERCENT AUTO 13 % (4-13); Mean Corpuscular HGB 30.3 pg (26.0-34.0); Mean Corpuscular HGB Conc 30.1 g/dL (31.5-36.5); Mean Corpuscular Volume 101 fL (80-100); Mean Platelet Volume 10.7 fL (9.1-12.4); NEUTROPHILS ABSOLUTE AUTO 5.45 K/mm3 (1.96-9.15); NEUTROPHILS PERCENT AUTO 71 % (41-73); NRBC ABSOLUTE 0.03 K/mm3 (0.00-0.02); NRBC Auto 0.4 /100 WBC (0.0-0.2); Platelet Count 88 K/mm3 (150-400); RDW Coefficient Variation 21.1 % (11.7-14.2); RDW Standard Deviation 77.7 fL (35.1-46.3); Red Blood Cell Count 4.36 M/mm3 (4.30-5.90)
[2019-11-17 20:11] LABS: International Normalized Ratio 1.28; Prothrombin Time Results 13.5 Sec (9.7-11.5)
[2019-11-17 20:23] LABS: Albumin, Blood 2.6 g/dL (3.4-5.0); Albumin/Globulin Ratio 0.6 (0.8-1.8); Bilirubin, Total 0.9 mg/dL (0.1-1.0); Bun/Creatinine Ratio 7.2 (12.0-20.0); Calcium, Blood 8.8 mg/dL (8.5-10.1); Creatinine, Blood 3.35 mg/dL (0.60-1.20); Globulin, Blood 4.7 g/dL (2.2-4.0); Potassium, Blood 3.5 mmol/L (3.5-5.5); Total Protein, Blood 7.3 g/dL (6.4-8.2)
[2019-11-17] MEDS ORDERED: QVAR REDIHALE10.6 G3 INH ×2 (21:08)
[2019-11-17] MEDS ORDERED: Travatan Z5 ML BOTHEYES ×2 (21:08)
[2019-11-17] MEDS ORDERED: Calcium Acetat667 MG PO ×2 (21:10)
[2019-11-17] MEDS ORDERED: Enulose10 GM/15 M PO (21:10)
[2019-11-17] MEDS ORDERED: TOPROL XL200 MG PO ×2 (21:11)
[2019-11-17] MEDS ORDERED: ALLO100 PO ×2 (21:12)
[2019-11-17] MEDS ORDERED: FINA5 PO ×2 (21:26)
[2019-11-17] MEDS ORDERED: ROSU10TA PO ×2 (21:27)
[2019-11-17] MEDS ORDERED: FLUT.05NI ×2 (21:27)
[2019-11-17] MEDS ORDERED: HUMALOG KW100 UNIT/1 SC ×2 (21:27)
[2019-11-17] MEDS ORDERED: Aspir 8181 MG PO ×2 (21:28)
[2019-11-17] MEDS ORDERED: NITR.4SL SL ×2 (21:28)
[2019-11-17] MEDS ORDERED: Imdur60 MG PO ×2 (21:29)
[2019-11-17] MEDS ORDERED: CLOP75 PO ×2 (21:29)
[2019-11-17] MEDS ORDERED: RENAL VITAMIN0.8 MG PO ×2 (21:30)
[2019-11-17] MEDS ORDERED: Bumetanide2 MG PO ×2 (21:30)
[2019-11-17] MEDS ORDERED: LACT PO ×2 (21:30)
[2019-11-17] MEDS ORDERED: ANORO ELLIPTA1 EAC1 INH ×2 (21:31)
[2019-11-17] MEDS ORDERED: HUMULIN N100 UNIT/5 SC ×2 (21:32)
[2019-11-17] MEDS ORDERED: Midodrine HCl10 MG PO ×2 (21:33)
[2019-11-17] MEDS ORDERED: MELATONIN5 M1 PO (21:33)
[2019-11-17] MEDS ORDERED: Vancocin HCl125 MG PO ×2 (21:34)
[2019-11-17] MEDS ORDERED: ENTRESTO 24 MG1 EACH PO ×2 (21:35)
[2019-11-17] MEDS ORDERED: XOPENEX0.63 MG/3 NEB ×2 (21:37)
[2019-11-17] MEDS ORDERED: ACET325 PO ×2 (21:37)
[2019-11-17] MEDS ORDERED: Ativan1 MG PO ×2 (21:38)
[2019-11-18 04:58] LABS: BASOPHILS ABSOLUTE AUTO 0.05 K/mm3 (0.00-0.23); BASOPHILS PERCENT AUTO 1 % (0-2); EOSINOPHILS ABSOLUTE AUTO 0.08 K/mm3 (0.00-0.68); EOSINOPHILS PERCENT AUTO 1 % (0-6); Hematocrit 42.1 % (37.0-53.0); Hemoglobin 12.7 g/dL (13.5-17.5); IMMATURE GRAN ABSOLUTE AUTO 0.02 K/mm3 (0.00-0.10); IMMATURE GRAN PERCENT AUTO 0 % (0-1); LYMPHOCYTES PERCENT AUTO 17 % (21-46); MONOCYTES ABSOLUTE AUTO 1.03 K/mm3 (0.16-1.47); MONOCYTES PERCENT AUTO 13 % (4-13); Mean Corpuscular HGB 30.2 pg (26.0-34.0); Mean Corpuscular HGB Conc 30.2 g/dL (31.5-36.5); Mean Corpuscular Volume 100 fL (80-100); Mean Platelet Volume 10.4 fL (9.1-12.4); NEUTROPHILS ABSOLUTE AUTO 5.46 K/mm3 (1.96-9.15); NEUTROPHILS PERCENT AUTO 68 % (41-73); NRBC ABSOLUTE 0.03 K/mm3 (0.00-0.02); NRBC Auto 0.4 /100 WBC (0.0-0.2); Platelet Count 90 K/mm3 (150-400); RDW Standard Deviation 74.9 fL (35.1-46.3); White Blood Cell Count 8.04 K/mm3 (4.00-11.30)
[2019-11-18 05:18] LABS: Albumin, Blood 2.6 g/dL (3.4-5.0); Anion Gap 7 mmol/L (6-16); Blood Urea Nitrogen 27 mg/dL (8-24); Bun/Creatinine Ratio 7.4 (12.0-20.0); CO2, Blood 33 mmol/L (21-32); Chloride, Blood 97 mmol/L (98-108); Creatinine, Blood 3.66 mg/dL (0.60-1.20); Glomerular Filtration Rate 17 (60-); Glucose, Blood 124 mg/dL (70-99); Phosphorus, Blood 4.3 mg/dL (2.5-4.9); Potassium, Blood 3.5 mmol/L (3.5-5.5); Sodium, Blood 137 mmol/L (136-145)
--- NOTE | 2019-11-18 07:42 | NUR ---
SHIFT SUMMARY PATIENT WAS VERY CONFUSED OVERNIGHT. WOULD NOT KEEP HIS CPAP MASK OR CONTINUOUS BIOX LEAD ON. AT ONE POINT THIS RN WAS TRYING TO PUT THE LEAD ON THE PATIENT'S TOE AND HE BECAME AGITATED AND THREW HIS CALL LIGHT AT THIS RN. IV PATENT AND FLUSHED. BED IN LOWEST POSITION WITH WHEELS LOCKED AND ALARM ON. CALL LIGHT WITHIN REACH. REPORT GIVEN TO ONCOMING RN.
--- NOTE | 2019-11-18 11:19 | NUR ---
Pt's spouse Marleny left message on Palliative Care voicemail requesting multiple family members to be allowed to visit Pt. Brief supportive visit with Pt and Marleny in Dialysis room. Pt receiving dialysis. Marleny reports Pt showing improvement since be admitted this AM. Pt is awake and is conversing a little more. Listened as Marleny reports multiple family members are flying in today from different states and is requesting Pt to have multiple visitors. Provided gentle education on purpose of restrictions and minimizing exposure and risks. Marleny does not appear to be satisfied with answer and is requesting to speak with Palliative Care RN Yareli tomorrow. No other concerns reported at this time. Spoke with Bedside RN Florence and Nursing Automatic Seamer Sola regarding spouse's request. Niether are in agreement that multiple visitors are needed at this time. Palliative Care will remain available for supportive visits.
--- NOTE | 2019-11-18 12:17 | NUR ---
TOOK PATIENT'S BELONGINGS DOWN TO PCU 3, WHERE HE IS BEING TRANSFERED AFTER THE COMPLETION OF DIALYSIS. REPORT GIVEN TO GIANNI ALVARADO WHO WILL ASSUME PATIENT CARE FROM THIS TIME FORWARD.
--- NOTE | 2019-11-18 12:17 | NUR ---
PCU TRANSFER PT TO BE TRANSFERRED TO PCU 3. REPORT RECEIVED FROM CHRISTIANO WALKER. PT IN DIALYSIS AT THIS TIME.
--- NOTE | 2019-11-18 12:58 | NUR ---
ARRIVAL TO ICU PICKED UP PATIENT FROM DIALYSIS. PT MINIMALLY RESPONSIVE TO PAINFUL STIMULI. MAKING JERKING MOVEMENTS WITH WRIST TURNING INWARDS AND UPWARDS. HYPOTENSIVE, IMPROVED WHEN CHANGED FROM WRIST CUFF TO UPPER ARM CUFF. STATES THAT THIS IS A SIGNFICANT CHANGE FROM NEUROLOGICAL BASELINE. INFORMED DR. COLEMAN OF 'S CONCERN AND NO CT SCAN THIS ADMISSION. NEW ORDER FOR STAT CT SCAN. JOE, CHARGE NURSE AWARE.
--- NOTE | 2019-11-18 13:12 | NUR ---
BLOOD CULTURE ORDER FOR BLOOD CULTURE FROM DIALYSIS PORT. DILANDA FROM DIALYSIS TO COME TO BEDSIDE TO PULL BLOOD CULTURE.
--- NOTE | 2019-11-18 13:23 | NUR ---
REPORT GIVEN TO CHRISTIANO BATEMAN TO ASSUME CARE AT THIS TIME. CHEST X-RAY AT BEDSIDE AT THIS TIME. PER CAR SALTER, TRANSPORT WILL BE AVAILABLE IN [address] TO TAKE PT TO CT.
--- NOTE | 2019-11-18 13:30 | NUR ---
ASSUMED CARE OF PT: PT IS NOTED TO HAVE AN ELIVATED CO2. BIPAP PUT IN PLACE. BLOOD PRESSURES ARE NOTED TO BE ON THE LOW SIDE SINCE RETURNING FROM DIALYSIS. AT BEDSIDE AND STATES PT IS HAS A POLST THAT WAS FILLED OUT THE LAST ADMIT TO BE FULL CODE, FULL TREATMENT. NOTIFIED DR COLEMAN AND HE AGREED TO CHANGE CODE STATUS TO FULL CODE. PT IS ABLE TO ANSWER SINGLE WORDS TO QUESTIONS, BUT DOES NOT APPEAR TO BE ALERT TO PLACE OR DATE. STATES PT IS ALERGIC TO LATEX AND PT HAS HAD NUMEROUS TRAMATIC LEVINE CATHETERS PLACED AND REFUSES TO HAVE ONE PLACED TO AQUIRE URINE SAMPLE.
--- NOTE | 2019-11-18 13:36 | NUR ---
DIALYSIS NOTIFIED BY RN THAT A SET OF BLOOD CULTURES WERE NEEDED FROM THE DIALYSIS CATH. WENT TO THE ROOM WITH SUPPLIES. RT, SUEDE CLEANER, AND XRAY WERE THERE. I TOOK A SAMPLE FROM THE ARTERIAL LUMEN PER PROTOCAL. I GAVE THEM TO THE SUEDE CLEANER.
[2019-11-18 13:38] LABS: PO2 Arterial 85.7 mmHg (80-100); pH Blood Arterial 7.33 (7.35-7.45)
--- NOTE | 2019-11-18 14:03 | NUR ---
BLOOD GLUCOSE 99
--- NOTE | 2019-11-18 15:23 | NUR ---
CT: PT RETURNED FROM CT AT THIS TIME. BP APPEARES TO BE MORE STABLE AND PT IS ON BIPAP TOLLERATING WITH PERSONAL FACE MASK. WILL START MEDICATIONS PER ORDERS.
--- NOTE | 2019-11-18 21:00 | NUR ---
PHYSICIAN NOTIFIED PT NPO D/T RECENT ASPIRATION OF MEDICATION. PHYSICIAN NOTIFIED OF ALL EVENING MEDICATIONS. INSTRUCTED TO HOLD ALL PO EVENING MEDICATIONS AT THIS TIME.
--- NOTE | 2019-11-19 01:27 | NUR ---
PHYSICIAN NOTIFIED PT'S HGB AT 7.9 UPON ARRIVAL, LOWERED TO 7.7. PHYSICIAN PROVIDED NO INSTRUCTIONS AT THIS TIME.
--- NOTE | 2019-11-19 01:31 | NUR ---
PHYSICIAN NOTIFIED PT'S BLOOD SUGAR TAKEN AT 0000 WAS 57. BLOOD SUGAR BC TO 97 AFTER 47 1/2 AMP OF D50 WAS GIVEN. BP 94/32 WITH A MAP OF 58. PHYSICIAN ORDERED ONE TIME DOSE OF 500 ML BOLUS.
[2019-11-19 03:35] LABS: BASOPHILS ABSOLUTE AUTO 0.07 K/mm3 (0.00-0.23); BASOPHILS PERCENT AUTO 1 % (0-2); EOSINOPHILS ABSOLUTE AUTO 0.08 K/mm3 (0.00-0.68); EOSINOPHILS PERCENT AUTO 1 % (0-6); Hematocrit 39.2 % (37.0-53.0); Hemoglobin 12.1 g/dL (13.5-17.5); IMMATURE GRAN ABSOLUTE AUTO 0.02 K/mm3 (0.00-0.10); IMMATURE GRAN PERCENT AUTO 0 % (0-1); LYMPHOCYTES ABSOLUTE AUTO 1.29 K/mm3 (0.84-5.20); LYMPHOCYTES PERCENT AUTO 17 % (21-46); MONOCYTES ABSOLUTE AUTO 0.86 K/mm3 (0.16-1.47); MONOCYTES PERCENT AUTO 11 % (4-13); Mean Corpuscular HGB 30.4 pg (26.0-34.0); Mean Corpuscular HGB Conc 30.9 g/dL (31.5-36.5); Mean Corpuscular Volume 99 fL (80-100); Mean Platelet Volume 10.8 fL (9.1-12.4); NEUTROPHILS ABSOLUTE AUTO 5.28 K/mm3 (1.96-9.15); NEUTROPHILS PERCENT AUTO 69 % (41-73); Platelet Count 89 K/mm3 (150-400); RDW Coefficient Variation 20.8 % (11.7-14.2); RDW Standard Deviation 73.4 fL (35.1-46.3); Red Blood Cell Count 3.98 M/mm3 (4.30-5.90)
[2019-11-19 03:52] LABS: Albumin, Blood 2.4 g/dL (3.4-5.0); Albumin/Globulin Ratio 0.6 (0.8-1.8); Bun/Creatinine Ratio 7.4 (12.0-20.0); Calcium, Blood 8.7 mg/dL (8.5-10.1); Creatinine, Blood 4.32 mg/dL (0.60-1.20); Globulin, Blood 4.2 g/dL (2.2-4.0); Potassium, Blood 3.7 mmol/L (3.5-5.5); Total Protein, Blood 6.6 g/dL (6.4-8.2)
--- NOTE | 2019-11-19 04:59 | NUR ---
PHYSICIAN NOTIFIED PHYSICIAN NOTIFIED OF PT'S CURRENT BP OF 84/21 W/MAP OF 40. PHYSICIAN DID NOT PROVIDE INSTRUCTIONS AT THIS TIME. WILL CONTINUE TO MONITOR.
--- NOTE | 2019-11-19 06:07 | NUR ---
SHIFT SUMMARY PT LETHARGIC BEGINNING OF SHIFT. PT BECAME ARROUSABLE AND AGGITATED T/O SHIFT. PT WORE BIPAP T/O NIGHT WITH 2 L BLEED IN. PT ALERT TO SELF AND FAMILY. CONFUSED AT TIMES WITH LOCATION. GARBLED SPEECH. PT REPOSITIONED Q 2 HRS. PT REMAINED NPO T/O SHIFT, ORAL CARE PROVIDED. HR REMAINS STABLE. BP IS HYPOTENSIVE AT TIMES, PHYSICIAN NOTIFIED. ONE 500 ML BOLUS PROVIDED. PO MEDICATIONS HELD D/T ASPIRATION RISK, PHYSICIAN ORDERED. PT REPORTS NO CHEST PAIN OR PRESSURE. BED ALARM IN PLACE. WILL CONTINUE TO MONITOR UNTIL REPORT GIVEN TO DAYSHIFT RN.
--- NOTE | 2019-11-19 08:19 | NUR ---
ASSUMED CARE AT 0700, REPORT FROM CHRISTIANO TATE. LAYING SUPINE IN LOW FOWLERS, A/A/OX3 WITH INTERMITANT CONFUSION. DAUGHTER AT BEDSIDE. 3.5L [address]. IV TO RIGHT FA SALINE LOCKED. PERMI CATH TO CHEST WALL DRY AND INTACT. NPO UNTIL SWALLOW EVAL. NO ORAL MEDS PER MERCHANDISE CARRIER DOCTOR UNTIL SWALLOW EVAL COMPLETE. BRUISING NOTED BILATERALLY TO ARMS, AND ABDOMEN. DAUGHTER STATES NORMAL FOR PT, BRUISES EASILY. BLOOD PRESSURE LOW THIS BUT WITHIN LIMITS OF RECENT TRENDS. PROVIDER AWARE PER BEBETO ALVARADO. GOAL MAP OF >[address] LAWRENCE. MAP IS 52 AT THIS TIME, WILL CONTINUE TO MONITOR.
[2019-11-19 09:07] LABS: HBSAG SCREEN Negative (Negative); HEP A AB, IGM Negative (Negative); HEP B CORE AB, IGM Negative (Negative); HEP C VIRUS AB <0.1 (0.0-0.9)
[2019-11-19 15:59] LABS: Vancomycin, Random 16.7 ug/mL
--- NOTE | 2019-11-19 18:36 | NUR ---
SHIFT SUMMARY A/A/OX3 WITH INTERMITANT CONFUSION. DAUGHTER AT BEDSIDE THROUGHOUT DAY. EEG COMPLETE TODAY. SWALLOW STUDY COMPLETE BY ST, MECHANICAL SOFT DIET ORDERED. ATE WITHOUT DIFFICULTY WITH SUPERVISION. PO MEDS GIVEN AFTER STUDY WITH APPLESAUCE. BRUISING SCATTERED THROUGHOUT BODY NOTED. MEPILEX PLACED ON COCCYX FOR REDNESS WITHOUT SKIN BREAKDOWN. MEPILEX PLACED BILATERALLY TO HEELS FOR PREVENTATIVE PROTECTION. NO ACUTE MEDICAL CHANGES DURING SHIFT, WILL CONTINUE TO MONITOR AND TREAT UNTIL CHANGE OF SHIFT.
[2019-11-20 05:25] LABS: Hematocrit 40.7 % (37.0-53.0); Hemoglobin 12.4 g/dL (13.5-17.5)
--- NOTE | 2019-11-20 05:37 | NUR ---
SUMMARY PT WORE BIPAP FOR 3 HOURS OVERNIGHT, NC USED B/C PT STARTED PULLING BIPAP OFF WELL TRYING TO PULL OFF TELE AND O2 SENSOR. HE WAS CONFUSED THROUGHOUT THE NIGHT. TAKES MEDICATION WELL WITH APPLESAUCE. USES THE BEDPAN AND IS A TWO PERSON ASSIST WHEN TURNING. PT WORE HEEL PROTECTORS AND WAS TURNED Q2 HRS. CALL LIGHT IS IN REACH, BED IN LOW POSITION.
[2019-11-20 06:00] LABS: Albumin, Blood 2.4 g/dL (3.4-5.0); Anion Gap 9 mmol/L (6-16); Blood Urea Nitrogen 42 mg/dL (8-24); Bun/Creatinine Ratio 7.7 (12.0-20.0); CO2, Blood 26 mmol/L (21-32); Chloride, Blood 101 mmol/L (98-108); Creatinine, Blood 5.43 mg/dL (0.60-1.20); Glomerular Filtration Rate 11 (60-); Glucose, Blood 118 mg/dL (70-99); Phosphorus, Blood 5.6 mg/dL (2.5-4.9); Potassium, Blood 4.3 mmol/L (3.5-5.5); Sodium, Blood 136 mmol/L (136-145)
--- NOTE | 2019-11-20 11:07 | NUR ---
This morning Last was alert, mildly confused, and his at the bedside, also confirming that he was confused. He is cooperative, and conversant. Able to make his wishes known. She assisted him with breakfast, while he was sitting up in the bed. She had several questions, about his "sepsis" and about the "tests being done". I explained my understanding that his disease process is cardiopulmonary disease, long-standing, as well as kidney failure, which she also verbalized understanding of. I explained that to my knowledge he was not diagnosed with sepsis on this admission. He was only wearing his bipap last night for 3 hours, the noc shift RN told me. This morning his blood pressure was noted low, with MAP of 42, so midodrine was given right away, about an hour before he actually was taken to the dialysis room. He was able to take his medications, one at a time, whole in applesauce while sitting upright in bed.
[2019-11-20 12:17] LABS: Vancomycin, Random 10.7 ug/mL
[2019-11-20] MEDS ORDERED: MELATONIN5 M1 PO ×2 (18:15)
[2019-11-20] MEDS ORDERED: LACT10SY PO ×2 (18:16)
== END 2019-11-20 19:39 | disposition home or self-care (01) | DRG 70 ==
LOC: ER 19:06 → MEDS 19:07 → PCU 11-18 12:17
PROVIDERS: Emergency Medicine; Internal Medicine Gastroenterology; Internal Medicine Nephrology; Pharmacist; ADMIT Internal Medicine
PROC: 5A1D70Z Performance of Urinary Filtration, Intermittent, Less than 6 Hours Per Day (ICD-10-PCS; principal; 2019-11-18)
PROC: 5A09457 Assistance with Respiratory Ventilation, 24-96 Consecutive Hours, Continuous Positive Airway Pressure (ICD-10-PCS; 2019-11-18)
PROC: 5A1D70Z Performance of Urinary Filtration, Intermittent, Less than 6 Hours Per Day (ICD-10-PCS; 2019-11-20)
DX: G93.41 Metabolic encephalopathy (principal); N18.6 End stage renal disease; I13.2 Hypertensive heart and chronic kidney disease with heart failure and with stage 5 chronic kidney disease, or end stage renal disease; I50.22 Chronic systolic (congestive) heart failure; E72.20 Disorder of urea cycle metabolism, unspecified; N25.81 Secondary hyperparathyroidism of renal origin; J96.11 Chronic respiratory failure with hypoxia; J98.11 Atelectasis; J96.12 Chronic respiratory failure with hypercapnia; Z20.828 Contact with and (suspected) exposure to other viral communicable diseases; E11.22 Type 2 diabetes mellitus with diabetic chronic kidney disease; Z99.2 Dependence on renal dialysis; I27.20 Pulmonary hypertension, unspecified; I48.0 Paroxysmal atrial fibrillation; D63.1 Anemia in chronic kidney disease; E87.70 Fluid overload, unspecified; G31.83 Neurocognitive disorder with Lewy bodies; F02.80 Dementia in other diseases classified elsewhere, unspecified severity, without behavioral disturbance, psychotic disturbance, mood disturbance, and anxiety; G47.33 Obstructive sleep apnea (adult) (pediatric); I25.10 Atherosclerotic heart disease of native coronary artery without angina pectoris; I25.2 Old myocardial infarction; I25.5 Ischemic cardiomyopathy; J44.9 Chronic obstructive pulmonary disease, unspecified; N40.0 Benign prostatic hyperplasia without lower urinary tract symptoms; Z74.01 Bed confinement status; Z85.118 Personal history of other malignant neoplasm of bronchus and lung; Z85.51 Personal history of malignant neoplasm of bladder; Z87.891 Personal history of nicotine dependence; Z99.81 Dependence on supplemental oxygen; I95.9 Hypotension, unspecified; E66.01 Morbid (severe) obesity due to excess calories; Z95.0 Presence of cardiac pacemaker; Z79.4 Long term (current) use of insulin; Z95.5 Presence of coronary angioplasty implant and graft; Z90.2 Acquired absence of lung [part of]; G47.00 Insomnia, unspecified; H40.9 Unspecified glaucoma; K21.9 Gastro-esophageal reflux disease without esophagitis; Z68.39 Body mass index [BMI] 39.0-39.9, adult
CPT/HCPCS: 36415; 36600; 70450; 71045; 80053; 80069; 80074; 80202; 82140; 82803; 82947; 83735; 84100; 84145; 85014; 85018; 85025; 85610; 86317; 87040; 92526; 92610; 93005; 93010; 94640; 94660; 94762; 95819; 96372; 97110; 97162; 97165; 97530; 97535; 99285-25; A9270; A9270-GY; G0378; J1644; J1815; J1956; J3370; J7030; J7050

== ENCOUNTER → 2019-11-17 | Outpatient (CLI) | payer MEDICARE, OTHER ==
[2019-11-17 16:46] LABS: Albumin, Blood 2.5 g/dL (3.4-5.0); Anion Gap 7 mmol/L (6-16); Blood Urea Nitrogen 24 mg/dL (8-24); Bun/Creatinine Ratio 7.4 (12.0-20.0); CO2, Blood 34 mmol/L (21-32); Calcium, Blood 8.6 mg/dL (8.5-10.1); Chloride, Blood 98 mmol/L (98-108); Creatinine, Blood 3.24 mg/dL (0.60-1.20); Glomerular Filtration Rate 19 (60-); Glucose, Blood 109 mg/dL (70-99); Phosphorus, Blood 3.8 mg/dL (2.5-4.9); Potassium, Blood 3.9 mmol/L (3.5-5.5); Sodium, Blood 139 mmol/L (136-145)
== END | disposition home or self-care (01) ==
LOC: LAB 15:25 → LAB SHORT 15:25
PROVIDERS: Internal Medicine Nephrology
DX: I25.10 Atherosclerotic heart disease of native coronary artery without angina pectoris (principal); I13.2 Hypertensive heart and chronic kidney disease with heart failure and with stage 5 chronic kidney disease, or end stage renal disease; I50.9 Heart failure, unspecified; N18.9 Chronic kidney disease, unspecified
CPT/HCPCS: 80069

== ENCOUNTER 2019-12-10 15:51 | Inpatient (IN) | payer MEDICARE, OTHER ==
[~2019-12-10] VITALS: Ht 177.8 cm; Wt 121.6 kg
[~2019-12-10 15:51] MED LIST changes: +ACET325 PO; +ANORO ELLIPTA1 EAC1 INH; +Aspir 8181 MG PO; +Ativan1 MG PO; +CLOP75 PO; +Calcium Acetat667 MG PO; +ENTRESTO 24 MG1 EACH PO; +Enulose10 GM/15 M PO; +HUMALOG KW100 UNIT/1 SC; +HUMULIN N100 UNIT/1 SC; +Imdur60 MG PO; +LACT PO; +LACT10SY PO; +MELATONIN5 M1 PO; +Midodrine HCl10 MG PO; +QVAR REDIHALE10.6 G3 INH; +RENAL VITAMIN0.8 MG PO; +TOPROL XL200 MG PO; +Travatan Z5 ML BOTHEYES; +Vancocin HCl125 MG PO; +XOPENEX0.63 MG/3 NEB
[2019-12-10 16:49] LABS: BASOPHILS ABSOLUTE AUTO 0.07 K/mm3 (0.00-0.23); BASOPHILS PERCENT AUTO 1 % (0-2); EOSINOPHILS ABSOLUTE AUTO 0.15 K/mm3 (0.00-0.68); EOSINOPHILS PERCENT AUTO 1 % (0-6); Hemoglobin 13.2 g/dL (13.5-17.5); IMMATURE GRAN ABSOLUTE AUTO 0.11 K/mm3 (0.00-0.10); IMMATURE GRAN PERCENT AUTO 1 % (0-1); LYMPHOCYTES ABSOLUTE AUTO 1.17 K/mm3 (0.84-5.20); LYMPHOCYTES PERCENT AUTO 9 % (21-46); MONOCYTES ABSOLUTE AUTO 1.46 K/mm3 (0.16-1.47); MONOCYTES PERCENT AUTO 12 % (4-13); Mean Corpuscular HGB 30.4 pg (26.0-34.0); Mean Corpuscular HGB Conc 30.7 g/dL (31.5-36.5); Mean Corpuscular Volume 99 fL (80-100); Mean Platelet Volume 11.6 fL (9.1-12.4); NEUTROPHILS ABSOLUTE AUTO 9.67 K/mm3 (1.96-9.15); NEUTROPHILS PERCENT AUTO 76 % (41-73); NRBC Auto 1.6 /100 WBC (0.0-0.2); Platelet Count 54 K/mm3 (150-400); RDW Coefficient Variation 20.3 % (11.7-14.2); RDW Standard Deviation 72.6 fL (35.1-46.3); Red Blood Cell Count 4.34 M/mm3 (4.30-5.90); White Blood Cell Count 12.63 K/mm3 (4.00-11.30)
[2019-12-10 17:03] LABS: Alanine Aminotransfer (ALT/SGP 17 U/L (12-78); Albumin, Blood 2.4 g/dL (3.4-5.0); Albumin/Globulin Ratio 0.5 (0.8-1.8); Alk Phos 161 U/L (50-136); Anion Gap 8 mmol/L (6-16); Aspartate Aminotrans (AST/SGOT 34 U/L (12-37); Bilirubin, Total 1.1 mg/dL (0.1-1.0); Blood Urea Nitrogen 13 mg/dL (8-24); Bun/Creatinine Ratio 5.2 (12.0-20.0); CO2, Blood 29 mmol/L (21-32); Calcium, Blood 8.3 mg/dL (8.5-10.1); Chloride, Blood 100 mmol/L (98-108); Creatinine, Blood 2.49 mg/dL (0.60-1.20); Ethanol (Alcohol), Blood, Med <3 mg/dL; Globulin, Blood 5.1 g/dL (2.2-4.0); Glomerular Filtration Rate 26 (60-); Glucose, Blood 79 mg/dL (70-99); Potassium, Blood 3.3 mmol/L (3.5-5.5); Sodium, Blood 137 mmol/L (136-145); Total Protein, Blood 7.5 g/dL (6.4-8.2)
[2019-12-10 17:14] LABS: International Normalized Ratio 1.32; Prothrombin Time Results 13.9 Sec (9.7-11.5)
[2019-12-10 17:53] LABS: Base Excess Venous 8.4 mmol/L; Bicarbonate Venous 28.4 mmol/L (24.0-30.0); PCO2 Venous 87.7 mmHg (38-42); PO2 Venous 40.5 mmHg (38-42)
[2019-12-10 17:54] LABS: pH Blood Venous 7.22 (7.34-7.37)
[2019-12-10] MEDS ORDERED: Toprol Xl200 MG PO (19:05)
[2019-12-10 20:47] LABS: PCO2 Arterial 37.3 mmHg (35-45); PO2 Arterial 101 mmHg (80-100); pH Blood Arterial 7.52 (7.35-7.45)
--- NOTE | 2019-12-10 22:25 | NUR ---
ASSUMED CARE NOTE: ASSUMED CARE OF PT AT 2220, RECEVIED REPORT FROM DENISE ER NURSE. PT ARRIVED TO UNIT VIA STRETCHER, RT AT BEDSIDE. PT IS ON VENT WITH SETTINGS AT AC16/450/5/35% WITH SPO2 AT 98% SMALL AMOUNTS OF WHITE FROTHY SPUTUM NOTED VIA ETT. PT IS PACED, PACER SET AT 60. PULSES FAINT IN ALL EXTREMITIES. BP STABLE WITH PRESSORS. LEVO RUNNING THROUGH PERIPHERAL IV 8MCG/KG/HR. VERSED DRIP RUNNING FOR SEDATION. OGT CLAMPED. AT BEDSIDE, ASSISTING WITH ADMISSION HISTORY AND MED REC.
--- NOTE | 2019-12-10 23:00 | NUR ---
UPDATE: CALLED [facility] REGARDING CONSULT. ORDERS TO D/C VERSED GIVEN, PROPOFOL WILL BE USED INSTEAD OF VERSED. PHYSICAN AWARE THAT LEVOPHED IS RUNNING THROUGH A PERIPHERAL IV. PHYSICAN WANTS TO BE NOTIFIED IF LEVOPHED IS TITRATED ABOVE 10MCG/KG/MIN TO CONSIDER PUTTING IN A CENTRAL LINE. ETT TO BE PULLED OUT BY 1CC, RT MADE AWARE. WILL OBTAIN X-RAY IN THE AM.
[2019-12-10] MEDS ORDERED: HYDHCL25 PO (23:16)
[2019-12-11 03:52] LABS: Adenovirus Not Detected (NOT DETECT); Bordetella pertussis Not Detected (NOT DETECT); Chlamydophila pneumoniae Not Detected (NOT DETECT); Coronavirus 229E Not Detected (NOT DETECT); Coronavirus HKU1 Not Detected (NOT DETECT); Coronavirus NL63 Not Detected (NOT DETECT); Coronavirus OC43 Not Detected (NOT DETECT); Human Metapneumovirus Not Detected (NOT DETECT); Human Rhinovirus/Enterovirus Not Detected (NOT DETECT); Influenza A/2009-H1 Not Detected (NOT DETECT); Influenza A/H1 Not Detected (NOT DETECT); Influenza A/H3 Not Detected (NOT DETECT); Influenza B Not Detected (NOT DETECT); Mycoplasma pneumoniae Not Detected (NOT DETECT); Parainfluenza Virus 1 Not Detected (NOT DETECT); Parainfluenza Virus 2 Not Detected (NOT DETECT); Parainfluenza Virus 3 Not Detected (NOT DETECT); Parainfluenza Virus 4 Not Detected (NOT DETECT); Respiratory Syncytial Virus Not Detected (NOT DETECT); SARS-Cov-2 (COVID-19), BioFire Not Detected (NOT DETECT)
[2019-12-11 03:55] LABS: Base Excess Venous 6.3 mmol/L; Bicarbonate Venous 30.3 mmol/L (24.0-30.0); PCO2 Venous 33.1 mmHg (38-42)
[2019-12-11 03:56] LABS: pH Blood Venous 7.55 (7.34-7.37)
[2019-12-11 04:01] LABS: BASOPHILS ABSOLUTE AUTO 0.07 K/mm3 (0.00-0.23); BASOPHILS PERCENT AUTO 1 % (0-2); EOSINOPHILS ABSOLUTE AUTO 0.05 K/mm3 (0.00-0.68); EOSINOPHILS PERCENT AUTO 0 % (0-6); Hemoglobin 13.4 g/dL (13.5-17.5); IMMATURE GRAN ABSOLUTE AUTO 0.08 K/mm3 (0.00-0.10); IMMATURE GRAN PERCENT AUTO 1 % (0-1); LYMPHOCYTES ABSOLUTE AUTO 1.64 K/mm3 (0.84-5.20); LYMPHOCYTES PERCENT AUTO 13 % (21-46); MONOCYTES ABSOLUTE AUTO 1.26 K/mm3 (0.16-1.47); MONOCYTES PERCENT AUTO 10 % (4-13); Mean Corpuscular HGB 30.5 pg (26.0-34.0); Mean Corpuscular HGB Conc 31.9 g/dL (31.5-36.5); Mean Corpuscular Volume 96 fL (80-100); Mean Platelet Volume 11.5 fL (9.1-12.4); NEUTROPHILS ABSOLUTE AUTO 9.12 K/mm3 (1.96-9.15); NEUTROPHILS PERCENT AUTO 75 % (41-73); NRBC ABSOLUTE 0.14 K/mm3 (0.00-0.02); NRBC Auto 1.1 /100 WBC (0.0-0.2); Platelet Count 61 K/mm3 (150-400); RDW Coefficient Variation 20.2 % (11.7-14.2); Red Blood Cell Count 4.39 M/mm3 (4.30-5.90); White Blood Cell Count 12.22 K/mm3 (4.00-11.30)
[2019-12-11 04:13] LABS: International Normalized Ratio 1.35; Prothrombin Time Results 14.2 Sec (9.7-11.5)
[2019-12-11 04:21] LABS: Albumin, Blood 2.2 g/dL (3.4-5.0); Albumin/Globulin Ratio 0.5 (0.8-1.8); Bilirubin, Total 1.3 mg/dL (0.1-1.0); Bun/Creatinine Ratio 6.8 (12.0-20.0); Calcium, Blood 8.5 mg/dL (8.5-10.1); Creatinine, Blood 2.92 mg/dL (0.60-1.20); Globulin, Blood 4.5 g/dL (2.2-4.0); Potassium, Blood 3.6 mmol/L (3.5-5.5); Total Protein, Blood 6.7 g/dL (6.4-8.2); Troponin I 0.029 ng/mL (0.000-0.040)
--- NOTE | 2019-12-11 05:03 | NUR ---
CALLED REGARDING CRITICAL pH AND LACTIC ACID. ORDERS TO CHANGE VENT SETTINGS TO AC12/400/5/35%
--- NOTE | 2019-12-11 06:21 | NUR ---
SHIFT SUMMARY: SEE PREVIOUS NOTES. PT CONTINUES TO BE ON VENT WITH SETTINGS AT AC12/400/5/35% PT HAVING SMALL AMOUNTS OF FROTHY SPUTUM. PT SEDATED WITH 20MCG/KG/MIN, PRN FENTYNAL GIVEN. BP STABLE WITH PRESSORS, LEVOPHED AT 9MCG/KG/MIN. PT CONTINUES TO RESPOND TO PAINFUL STIMULI. PT HAS BEEN HAVING TREMORS, STS THIS IS HIS BASELINE. PT HAS BEEN AFEBRILE. OGT TO LOW INTERMIT SUCTION, GREEN LIQUID DRAINAGE.
--- NOTE | 2019-12-11 08:09 | NUR ---
Received report from Mena ALVARADO. Patient is intubated and sedated. He has 8.0 ET and 25cm at teeth, with vent settingsAC 12, TV 400, FiO2 30%, and PEEP of 5.0 and sats 95%.He has 20ga LH dressing intact and site WNL's and is flushed and SL'd. He also has 18ga IV in LAC dressing intact and site WNL's and is infusing Propofol at 30mcg/kg/min. Last he has 18ga IV in RAC dressing intact and site WNL's and is infusing Levophed at 8mcg/min for systolic <65. He has pacer to left chest and is paced in the low 60's. He has bilateral SCD's. He has bilateral wrist soft restraints for tube and line safety. He has roberson draining to gravity light milka colored urine.
--- NOTE | 2019-12-11 10:00 | NUR ---
Patient remains intubated and sedated. No chnages in vent or gtt settings systolic 90-100 and MAPS >65. SCD's in place. at bedside and Dr Rodriguez is discussing plan of care and Palliative care.
--- NOTE | 2019-12-11 12:00 | NUR ---
No vent setting changes and sats >90%, No gtt changes and systolic >100. Placed PICC line in JIGNA. remains at bedside. VSS, See EMR, Oral and repositiong done.
--- NOTE | 2019-12-11 14:30 | NUR ---
Patient resting well with at bedside reading stories to him. VSS, See EMR, systolic 114 and MAP >65, sats 96%, he remaisn in paced rhythm 60's. No vent setting changes and or gtt changes with Levophed or Propofol.
--- NOTE | 2019-12-11 15:57 | NUR ---
Spiritual care visit conducted. Patient is lying in bed and non-responsive. Marleny is bedside and reading a novel to patient. Marleny immediately tells me about patient's medical history, current conditions and plan going forward. Marleny also explains about their belief system (they belong to the Religion of [employer]) and their devout belief in God and the Bible. Marleny asked me to say a prayer for patient. I gladly provide prayer and then conduct a short life review before I got called away to another rm.. Marleny invited me to return next day and expressed that prayer means a lot to them both.
[2019-12-11 16:27] LABS: Base Excess Venous 5.4 mmol/L; Bicarbonate Venous 28.7 mmol/L (24.0-30.0); PCO2 Venous 37.9 mmHg (38-42); PO2 Venous 48.9 mmHg (38-42); pH Blood Venous 7.49 (7.34-7.37)
--- NOTE | 2019-12-11 18:27 | NUR ---
They have adjusted ET for 2nd time per Dr Rodriguez and is currently 8.0 ET and is 23cmat lips.Her vent settings remains unchanged at AC12, TV 400, FiO2 30% and PEEP 5.0 and sats 94%. OG in place and started TF Vital High Protien at 25ml/hr with 30ml water flush Q4 with goal rate of 40ml/hr. PICC line JIGNA infusing Propofol at 30 mcg/kg/min and Levophed at 8mcg/min for MAP >65. Dialysis canceled per Dr Rodriguez and will resume 12/11. He is oliguric and no urine today. has been at bedside all day reading to him.
--- NOTE | 2019-12-11 19:00 | NUR ---
ASSUMED CARE ASSUMED CARE OF PATIENT. REMAINS INTUBATED- AC 12, TV 400, PEEP 5, FIO2 30%. RR 20. SEDATED WITH PROPOFOL AT 30MCG/KG/MIN. ATTEMPTS TO OPEN EYES TO STIMULI. WIGGLED TOES TO COMMAND. MOVES EXTREMITIES SPONTANEOUSLY, BUT MIMIMALLY. MOVES HEAD ON PILLOW. BILATERAL SOFT WRIST RESTRAINTS IN PLACE TO PREVENT SELF-EXTUBATION. MONITOR SHOWS PACED RHYTHM, RATE 60. BP STABLE WITH LEVOPHED AT 8MCG/MIN. OG WITH VITAL HIGH PROTEIN AT 25CC/HR (GOAL IS 40CC/HR). JIGNA PICC LINE NOTED. SCDs TO BLE. SCATTERED ECCHYMOSES NOTED. SEE SHIFT ASSESSMENT FOR FULL ASSESSMENT.
[2019-12-11 22:07] LABS: Vancomycin, Random 17.4 ug/mL
[2019-12-12 03:41] LABS: Base Excess Venous -2.1 mmol/L; Bicarbonate Venous 23.2 mmol/L (24.0-30.0); PCO2 Venous 31.4 mmHg (38-42); PO2 Venous 55.3 mmHg (38-42); pH Blood Venous 7.45 (7.34-7.37)
[2019-12-12 03:45] LABS: BASOPHILS ABSOLUTE AUTO 0.03 K/mm3 (0.00-0.23); BASOPHILS PERCENT AUTO 0 % (0-2); EOSINOPHILS ABSOLUTE AUTO 0.01 K/mm3 (0.00-0.68); EOSINOPHILS PERCENT AUTO 0 % (0-6); Hematocrit 43.7 % (37.0-53.0); Hemoglobin 14.1 g/dL (13.5-17.5); IMMATURE GRAN ABSOLUTE AUTO 0.05 K/mm3 (0.00-0.10); IMMATURE GRAN PERCENT AUTO 1 % (0-1); LYMPHOCYTES ABSOLUTE AUTO 0.69 K/mm3 (0.84-5.20); LYMPHOCYTES PERCENT AUTO 8 % (21-46); MONOCYTES ABSOLUTE AUTO 0.34 K/mm3 (0.16-1.47); MONOCYTES PERCENT AUTO 4 % (4-13); Mean Corpuscular HGB Conc 32.3 g/dL (31.5-36.5); Mean Corpuscular Volume 93 fL (80-100); Mean Platelet Volume 10.8 fL (9.1-12.4); NEUTROPHILS ABSOLUTE AUTO 7.27 K/mm3 (1.96-9.15); NEUTROPHILS PERCENT AUTO 87 % (41-73); NRBC ABSOLUTE 0.15 K/mm3 (0.00-0.02); NRBC Auto 1.8 /100 WBC (0.0-0.2); Platelet Count 85 K/mm3 (150-400); RDW Coefficient Variation 20.3 % (11.7-14.2); RDW Standard Deviation 66.3 fL (35.1-46.3); White Blood Cell Count 8.39 K/mm3 (4.00-11.30)
[2019-12-12 04:04] LABS: Magnesium, Blood 1.9 mg/dL (1.6-2.4)
[2019-12-12 04:06] LABS: Albumin, Blood 2.2 g/dL (3.4-5.0); Anion Gap 13 mmol/L (6-16); Blood Urea Nitrogen 28 mg/dL (8-24); Bun/Creatinine Ratio 8.1 (12.0-20.0); CO2, Blood 23 mmol/L (21-32); Calcium, Blood 8.7 mg/dL (8.5-10.1); Chloride, Blood 94 mmol/L (98-108); Creatinine, Blood 3.46 mg/dL (0.60-1.20); Glomerular Filtration Rate 18 (60-); Glucose, Blood 229 mg/dL (70-99); Sodium, Blood 130 mmol/L (136-145)
[2019-12-12 04:07] LABS: Potassium, Blood 5.8 mmol/L (3.5-5.5)
--- NOTE | 2019-12-12 04:45 | NUR ---
HYPOTENSION/BIGEMINY BP 90s/40s WITH LEVOPHED AT 24MCG/MIN. MONITOR SHOWS AFIB/FLUTTER WITH FREQUENT PVCs AND BIGEMINY. DR. ISRAEL NOTIFIED AND NEW ORDERS GIVEN FOR FLUID BOLUS, VASOPRESSIN, REPEAT LAB DRAWS, AND CALCIUM GLUCONATE.
[2019-12-12 06:00] LABS: Troponin I <0.015 ng/mL (0.000-0.040)
[2019-12-12 06:05] LABS: Alanine Aminotransfer (ALT/SGP 15 U/L (12-78); Albumin, Blood 2.2 g/dL (3.4-5.0); Albumin/Globulin Ratio 0.4 (0.8-1.8); Alk Phos 146 U/L (50-136); Anion Gap 14 mmol/L (6-16); Aspartate Aminotrans (AST/SGOT 46 U/L (12-37); Blood Urea Nitrogen 27 mg/dL (8-24); CO2, Blood 20 mmol/L (21-32); Calcium, Blood 8.4 mg/dL (8.5-10.1); Chloride, Blood 94 mmol/L (98-108); Creatinine, Blood 3.36 mg/dL (0.60-1.20); Glomerular Filtration Rate 19 (60-); Glucose, Blood 244 mg/dL (70-99); Potassium, Blood 7.2 mmol/L (3.5-5.5); Sodium, Blood 128 mmol/L (136-145); Total Protein, Blood 7.2 g/dL (6.4-8.2)
--- NOTE | 2019-12-12 06:35 | NUR ---
CRITICAL LABS/HYPOTENSION CRITICAL POTASSIUM LEVEL AND LACTIC ACID LEVEL CALLED TO DR. ISRAEL. ALSO NOTIFIED HER OF CONTINUED HYPOTENSION. NEW ORDERS RECEIVED. DR. LAWRENCE ALSO NOTIFIED OF LABS/STATUS. PLAN IS TO DIALYZE THIS AM.
--- NOTE | 2019-12-12 06:50 | NUR ---
SHIFT SUMMARY REMAINS INTUBATED- AC 12, TV 400, PEEP 5, FIO2 NOW AT 25%. SEDATED WITH PROPOFOL BETWEEN 20-30MCG/KG/MIN. MOVES EXTREMITIES. OCCASIONALLY FOLLOWS COMMANDS. BILATERAL SOFT WRIST RESTRAINTS CONTINUE. MONITOR SHOWS OCCASIONAL PACED RHYTHM AND AFIB/FLUTTER WITH PVCs/BIGEMINY. LEVOPHED BETWEEN 8-28MCG/MIN DURING SHIFT- NOW AT 28MCG/MIN. VASOPRESSIN STARTED THIS AM PER ORDER. 500CC NS IV BOLUS GIVEN X 1 AND PT IS TO RECEIVE AN ADDITIONAL LITER THIS AM. NO URINE OUTPUT. VITAL HIGH PROTEIN AT GOAL RATE OF 40CC/HR- RESIDUAL CHECKS <10CC. SCDs TO BLE. PLAN IS TO DIALYZE PT THIS AM. WILL REPORT TO ONCOMING RN WHEN AVAILABLE.
--- NOTE | 2019-12-12 08:07 | NUR ---
Received report from Jyothi ALVARADO. Patient remains intubated and sedated with 8.0 ET and 23cm at lips with setting AC 12, TV 400, FiO2 25%, Peep 5.0 and sats 97%. Patient has PICC line in JIGNA dressing intact and site WNL's and is infusing 0.04 u/min vasopressin, Levophed single dose 30mcg, NS TKO. NS bolus 1liter, Bicarb at 50 ml/hr, and gave 2 amp of bicarb push. He has bilateral scd's in place to lower calves. He is in bilateral soft wrist restraints for line and tube safety and well as patient safety. VSS, See,EMR. He moves LE to touch and head back and forth. He has OG and is infusing Vital High Protien at goal rate of 40 ml/hr and 30 ml/hr water flushes.
--- NOTE | 2019-12-12 10:00 | NUR ---
Dialysis has started and patient tolerating well. Dr Rodriguez has jf by and stopped bicarb. Levophed and vasopressin continue at max rate to keep MAP >65 and with success. VSS, See EMR. . remains at bedside. Dr Rodriguez has spoke with and family is coming in from out of state. She also wanted TF reduced to 10 ml/hr.
[2019-12-12 12:28] LABS: Magnesium, Blood 1.9 mg/dL (1.6-2.4); Troponin I 0.039 ng/mL (0.000-0.040)
[2019-12-12 12:30] LABS: Anion Gap 14 mmol/L (6-16); Blood Urea Nitrogen 17 mg/dL (8-24); Bun/Creatinine Ratio 7.9 (12.0-20.0); CO2, Blood 27 mmol/L (21-32); Calcium, Blood 9.3 mg/dL (8.5-10.1); Chloride, Blood 92 mmol/L (98-108); Creatinine, Blood 2.16 mg/dL (0.60-1.20); Glomerular Filtration Rate 31 (60-); Glucose, Blood 196 mg/dL (70-99); Phosphorus, Blood 3.2 mg/dL (2.5-4.9); Sodium, Blood 133 mmol/L (136-145); Vancomycin, Random 17.7 ug/mL
--- NOTE | 2019-12-12 12:30 | NUR ---
Dialysis done at 1150 and only pulled 200ml's of fluid. ECHO just finished and Dr Rodriguez [facility] systolic 90 with MAP's <65 and will be starting epi gtt. No other vent setting changes or changes to Propofol, Levophed, or vasopressin. remains at bedside. Will redo labs at 1400.
[2019-12-12 12:33] LABS: Potassium, Blood 3.1 mmol/L (3.5-5.5)
--- NOTE | 2019-12-12 14:57 | NUR ---
PT DEVICE LOWER RATE TURNED UP FROM 60 BPM TO 75 BPM PER V/O FROM DR SAAVEDRA
--- NOTE | 2019-12-12 16:03 | NUR ---
Spiritual care visit conducted. Patient's spouse, Marleny is sitting in hallway just outside of ICU. I sit with her while a procedure is being done in patient's rm. She is tearful as she tells me that the doctor has told her to have the family come and she talks about the love between them and how hard it is for her to "let go." She also speaks of the great marjan and how she and patient have deep peace about and believe they will be with the Lord. I provide therapeutic listening and prayer (for patient, Marleny and two daughters now driving up from [place] [employer]). I will continue to remain available to patient and family.
--- NOTE | 2019-12-12 16:55 | NUR ---
Patient was having diifficult time with BP cuffs and Dr Rodriguez placed arterial line in right groin, and now have ongoing bp's. Propofol was increased to 30 mcg/kg/min, Levophed 30mcg/min, vasopressin 0.04 u/min. with systolics 90-100 and maps >65. He remains oliguric. No vent changes today and remains on AC 12, TV 400, FiO2 25%, PEEP 5.0 and sats 98%, 8.0 ET and [address] Burirs by and met with Dr Rodriguez and spoke with . He had the device dept come by and increase the the lower threshold of the paced to 75 and now he is 90% paced in the 70 from previous Bigeminy 80-90's.
--- NOTE | 2019-12-12 19:00 | NUR ---
ASSUMED CARE ASSUMED CARE OF PATIENT. REMAINS INTUBATED- AC 12, TV 400, PEEP 5, FIO2 25%. RR 20. 8.0 ETT, 23 AT LIP/TEETH. SEDATED WITH PROPOFOL AT 30MCG/KG/MIN. BILATERAL SOFT WRIST RESTRAINTS IN PLACE. WITHDRAWS TO NOXIOUS STIMULI. MOVES ALL EXTREMITIES, BUT NOT FOLLOWING ANY COMMANDS. MONITOR SHOWS AFIB, RATE 70s. OCCASIONAL PVCs NOTED. lEVOPHED AT 30MCG/MIN AND VASOPRESSIN AT 0.04UNITS/MIN TO MAINTAIN MAP >65. OG WITH VITAL HIGH PROTEIN AT 10CC/HR. NO URINE OUTPUT. JIGNA PICC LINE NOTED. SCDs TO BLE. SEE SHIFT ASSESSMENT FOR FULL ASSESSMENT.
[2019-12-13 04:28] LABS: Bun/Creatinine Ratio 9.5 (12.0-20.0); Creatinine, Blood 2.96 mg/dL (0.60-1.20); Magnesium, Blood 1.9 mg/dL (1.6-2.4); Phosphorus, Blood 4.4 mg/dL (2.5-4.9); Potassium, Blood 3.8 mmol/L (3.5-5.5)
[2019-12-13 06:09] LABS: BASOPHILS ABSOLUTE AUTO 0.02 K/mm3 (0.00-0.23); BASOPHILS PERCENT AUTO 0 % (0-2); EOSINOPHILS ABSOLUTE AUTO 0.01 K/mm3 (0.00-0.68); EOSINOPHILS PERCENT AUTO 0 % (0-6); Hematocrit 41.1 % (37.0-53.0); Hemoglobin 13.4 g/dL (13.5-17.5); IMMATURE GRAN ABSOLUTE AUTO 0.17 K/mm3 (0.00-0.10); IMMATURE GRAN PERCENT AUTO 1 % (0-1); LYMPHOCYTES ABSOLUTE AUTO 0.36 K/mm3 (0.84-5.20); LYMPHOCYTES PERCENT AUTO 3 % (21-46); MONOCYTES PERCENT AUTO 11 % (4-13); Mean Corpuscular HGB 30.7 pg (26.0-34.0); Mean Corpuscular HGB Conc 32.6 g/dL (31.5-36.5); Mean Corpuscular Volume 94 fL (80-100); Mean Platelet Volume 11.9 fL (9.1-12.4); NEUTROPHILS ABSOLUTE AUTO 12.02 K/mm3 (1.96-9.15); NEUTROPHILS PERCENT AUTO 85 % (41-73); NRBC Auto 2.1 /100 WBC (0.0-0.2); Platelet Count 87 K/mm3 (150-400); RDW Coefficient Variation 20.5 % (11.7-14.2); RDW Standard Deviation 67.9 fL (35.1-46.3); Red Blood Cell Count 4.36 M/mm3 (4.30-5.90); White Blood Cell Count 14.18 K/mm3 (4.00-11.30)
[2019-12-13 06:16] LABS: Base Excess Venous 2.5 mmol/L; Bicarbonate Venous 25.6 mmol/L (24.0-30.0); PCO2 Venous 43.8 mmHg (38-42); PO2 Venous 41.7 mmHg (38-42)
--- NOTE | 2019-12-13 06:39 | NUR ---
SHIFT SUMMARY NO ACUTE CHANGES. REMAINS INTUBATED- AC 12, TV 400, PEEP 5, FIO2 NOW @ 3O%. SEDATED WITH PROPOFOL BETWEEN 20-30MCG/KG/MIN. PROPOFOL NOW AT 20MCG/KG/MIN. BILATERAL SOFT WRIST RESTRAINTS REMAIN IN PLACE. OCCASIONAL SPONTANEOUS MOVEMENT NOTED IN ALL EXTREMITIES. NOT FOLLOWING COMMANDS. MONITOR SHOWS AFIB WITH OCCASIONAL PVCs AND OCCASIONAL PACED BEATS. LEVOPHED INFUSING BETWEEN 18-30MCG/MIN DURING SHIFT. NOW INFUSING @ 20MCG/MIN. VASOPRESSIN AT 0.04UNITS/MIN. OG WITH TRICKLE FEED OF VITAL HIGH PROTEIN (10CC/HR). RESIDUALS <10CC. NO URINE OUTPUT. SCDs TO BLE. JIGNA PICC PATENT AND DRSG INTACT. WILL REPORT TO ONCOMING RN WHEN AVAILABLE.
--- NOTE | 2019-12-13 09:45 | NUR ---
CARE ASSUMED CARE AND REPORT ASSUMED FROM LIANET ALVARADO. PT INTUBATED AND LIGHTLY SEDATED. VENT AC 12, TV 400, PEEP 5, FIO2 30%. LUNG SOUNDS CLEAR BUT DIMINISHED IN BASES. PROPOFOL GTT INFUSING AT 20 MCG. PT RESPONDS TO NOXIOUS STIMULI BUT IS UNABLE TO FOLLOW COMMANDS. AT BEDSIDE. BUE RESTRAINED. TEMP 100.1; ROOM TEMPERATURE DECREASED AND BLANKETS REMOVED. ART LINE SECURE IN R GROIN; ZEROED AT START OF SHIFT. PT LIGHTLY TURNED ONTO SIDE. DIALYSIS IN PROGRESS. LEVOPHED GTT STARTED AT 20 MCG AT START OF SHIFT AND DUE TO DIALYSIS, GTT CURRENTLY UP TO 28 MCG. VASOPRESSIN GTT ALSO INFUSING. MINIMAL GAG RESPONSE AT THIS TIME. TOLERATED TF THROUGH OGT AT 10 ML/HR. HR 80-90S; AFIB. WILL CONTINUE TO MONITOR.
--- NOTE | 2019-12-13 11:48 | NUR ---
REASSESSMENT DIALYSIS COMPLETED. LEVOPHED GTT WAS INCREASED TO 28 MCG DURING INFUSION AND IS NOW DOWN TO 22 MCG. WILL ATTEMPT TO DECREASE EVEN MORE. AT BEDSIDE, READING TO PT. CURRENTLY IN AFIB, HR 80-90S. REMAINS ON VENT AC 12, TV 400, PEEP 5, FIO2 30%. LUNG SOUNDS COARSE IN L UPPER LUNG. BUE RESTRAINED. ART LINE SECURE IN R GROIN; GOOD WAVE FORM. TF FORMULA CHANGED FROM VHP TO PIVOT PER DIETARY. LACTIC ACID IMPROVING. TEMP DECREASED TO 99.0. VASOPRESSIN CONTINUES TO INFUSE. PROPOFOL GTT AT 20 MCG. PT DOES CONTINUE TO RESPOND TO NOXIOUS STIMULI, AND GAG REFLEX IS PRESENT. NOT ABLE TO FOLLOW COMMANDS. WILL CONTINUE TO MONITOR.
[2019-12-13 11:52] LABS: Alanine Aminotransfer (ALT/SGP 64 U/L (12-78); Albumin, Blood 3.4 g/dL (3.4-5.0); Albumin/Globulin Ratio 0.9 (0.8-1.8); Alk Phos 119 U/L (50-136); Aspartate Aminotrans (AST/SGOT 214 U/L (12-37); Bilirubin, Direct 0.8 mg/dL (0.0-0.3); Bilirubin, Indirect 0.5 mg/dL (0.1-0.7); Bilirubin, Total 1.3 mg/dL (0.1-1.0); Globulin, Blood 3.9 g/dL (2.2-4.0); Total Protein, Blood 7.3 g/dL (6.4-8.2); Vancomycin, Random 17.4 ug/mL
--- NOTE | 2019-12-13 11:56 | NUR ---
Spiritual care visit conducted. Patient continues to be nonresponsive. Patient's spouse, Marleny, is bedside. She reminisces about the travelling they have done together (much of it was connected to Marleny's job with [employer]) and how they made an adventure out of it all. She tells me about the many times the patient has rallied back from hopeless medical conditions several times. Marleny explains that these "comebacks" make it hard to not have a high hope that patient may do the same thing in this situation. Patient gets a new bag of nutrition and Marleny asks me to say "Gianna" over his meal, which I gladly do. I alsp prayer for Marleny, the patient and their family. I will continue to remain available to patient and family.
--- NOTE | 2019-12-13 18:25 | NUR ---
SHIFT SUMMARY PT REMAINED INTUBATED ENTIRE SHIFT; NO VENT CHANGES. SEDATION VACATION WAS 3 HOURS LONG WITH AND DAUGHTERS AT BEDSIDE. PT NOT ABLE TO FOLLOW COMMANDS, BUT DID RESPOND TO NOXIOUS STIMULI. DISCUSSED WITH FAMILY THE VISITING POLICY AND ENCOURAGED THEM TO MAKE A PLAN FOR 1 VISITOR PER DAY. MEPIPLEX DRESSINGS APPLIED TO WEEPING WOUNDS. NO BM THIS SHIFT. DIALYZED IN AM; 1L REMOVED. PT TURNED Q2H AND HOB ELEVATED. PROPOFOL GTT AT 20 MCG. LEVOPHED GTT AT 20 MCG. ART LINE DRESSING CHANGED. VASOPRESSIN INFUSING. WILL GIVE BEDSIDE, HANDOFF REPORT TO NOC RN.
--- NOTE | 2019-12-13 19:00 | NUR ---
ASSUMED CARE INTUBATED- AC 12, TV 400, PEEP 5, FIO2 30%. RR 20. SEDATED WITH PROPOFOL AT 20MCG/KG/MIN. WITHDRAWS TO NOXIOUS STIMULI. OCCASIONAL MINIMAL SPONTANEOUS MOVEMENT NOTED. NOT FOLLOWING ANY COMMANDS. MONITOR SHOWS AFIB, RATE 90s. LEVOPHED INFUSING AT 20MCG/MIN AND VASOPRESSIN AT 0.04UNITS/MIN TO MAINTAIN MAP >65. OG WITH PIVOT 1.5 IMMUNE INFUSING AT 10CC/HR PER ORDER. NO URINE OUTPUT- PT IS ANURIC. SCDs TO BLE. MULTIPLE SKIN TEARS NOTED TO BILATERAL UPPER EXTREMITIES. WEEPING EDEMA NOTED TO UPPER EXTREMITIES, WELL. JIGNA PICC NOTED- DRSG D/I. SEE SHIFT ASSESSMENT FOR FULL ASSESSMENT.
--- NOTE | 2019-12-13 21:20 | NUR ---
TUBE FEEDING/RESIDUALS OG RESIDUAL 700CC OF TUBE FEEDING AND BILE. REFED 200CC AND DISCARDED THE REST. TUBE FEEDING ON HOLD FOR NOW AND WILL RECHECK RESIDUALS.
--- NOTE | 2019-12-13 23:00 | NUR ---
TUBE FEEDING DISCUSSED HIGH RESIDUALS WITH DR. ISRAEL. WILL HOLD TUBE FEEDING FOR NOW AND RE-EVALUATE IN AM.
--- NOTE | 2019-12-14 01:30 | NUR ---
CONTINUED HYPERTENSION DR. LEMA NOTIFIED OF CONTINUED HYPERTENSION WITH SBP >170s AND DBP >100s. NEW ORDERS RECEIVED.
[2019-12-14 04:51] LABS: Base Excess Venous 2.4 mmol/L; Bicarbonate Venous 25.7 mmol/L (24.0-30.0); PCO2 Venous 46.3 mmHg (38-42); PO2 Venous 51.7 mmHg (38-42); pH Blood Venous 7.38 (7.34-7.37)
[2019-12-14 04:53] LABS: BASOPHILS ABSOLUTE AUTO 0.03 K/mm3 (0.00-0.23); BASOPHILS PERCENT AUTO 0 % (0-2); EOSINOPHILS PERCENT AUTO 0 % (0-6); Hematocrit 41.4 % (37.0-53.0); Hemoglobin 13.5 g/dL (13.5-17.5); IMMATURE GRAN ABSOLUTE AUTO 0.21 K/mm3 (0.00-0.10); IMMATURE GRAN PERCENT AUTO 1 % (0-1); LYMPHOCYTES ABSOLUTE AUTO 0.43 K/mm3 (0.84-5.20); LYMPHOCYTES PERCENT AUTO 2 % (21-46); MONOCYTES ABSOLUTE AUTO 1.64 K/mm3 (0.16-1.47); MONOCYTES PERCENT AUTO 9 % (4-13); Mean Corpuscular HGB Conc 32.6 g/dL (31.5-36.5); Mean Corpuscular Volume 95 fL (80-100); Mean Platelet Volume 11.5 fL (9.1-12.4); NEUTROPHILS ABSOLUTE AUTO 16.16 K/mm3 (1.96-9.15); NEUTROPHILS PERCENT AUTO 88 % (41-73); NRBC ABSOLUTE 0.64 K/mm3 (0.00-0.02); NRBC Auto 3.5 /100 WBC (0.0-0.2); Platelet Count 88 K/mm3 (150-400); RDW Coefficient Variation 20.4 % (11.7-14.2); RDW Standard Deviation 67.7 fL (35.1-46.3); Red Blood Cell Count 4.36 M/mm3 (4.30-5.90); White Blood Cell Count 18.47 K/mm3 (4.00-11.30)
[2019-12-14 05:14] LABS: Albumin, Blood 3.1 g/dL (3.4-5.0); Albumin/Globulin Ratio 0.8 (0.8-1.8); Bilirubin, Direct 0.9 mg/dL (0.0-0.3); Bilirubin, Indirect 0.4 mg/dL (0.1-0.7); Bilirubin, Total 1.3 mg/dL (0.1-1.0); Bun/Creatinine Ratio 10.4 (12.0-20.0); Calcium, Blood 9.4 mg/dL (8.5-10.1); Creatinine, Blood 3.08 mg/dL (0.60-1.20); Magnesium, Blood 2.2 mg/dL (1.6-2.4); Phosphorus, Blood 4.4 mg/dL (2.5-4.9); Potassium, Blood 4.2 mmol/L (3.5-5.5); Total Protein, Blood 7.1 g/dL (6.4-8.2)
--- NOTE | 2019-12-14 06:07 | NUR ---
SHIFT SUMMARY NO ACUTE CHANGES. REMAINS INTUBATED- AC 12, TV 400, PEEP 5, FIO2 NOW @ 3O%. SEDATED WITH PROPOFOL BETWEEN 15-20MCG/KG/MIN. PROPOFOL HAS BEEN OFF SINCE 444 FOR SEDATION VACATION. PT WITHDRAWS TO NOXIOUS STIMULI. NOT FOLLOWING COMMANDS. BILATERAL SOFT WRIST RESTRAINTS REMAIN IN PLACE. MONITOR SHOWS AFIB WITH INFREQUENT PVCs. LEVOPHED INFUSING BETWEEN 20-21MCG/MIN DURING SHIFT. NOW INFUSING @ 21MCG/MIN. VASOPRESSIN AT 0.04UNITS/MIN. OG HAS BEEN OFF SINCE APPROXIMATELY 2129 D/T HIGH RESIDUALS. NO URINE OUTPUT. SCDs TO BLE. JIGNA PICC PATENT AND DRSG INTACT. WILL REPORT TO ONCOMING RN WHEN AVAILABLE.
--- NOTE | 2019-12-14 07:15 | NUR ---
Assumed care of pt at 0700. Bedside report recieved from Jyothi ALVARADO. Pt intuated. Ventilator settings AC 12/400/5/30%. RR 20. Tolerating ventilator. Sedation off since AM wean. Pt resposive to painful stimulus. Weak gag. Cough noted with repositioning. SR per monitor. Pt on vasopressin and 21 mcg/min levophed through PICC line. OG tube in place, clamped. TF held due to poor tolerance. Very hypoactive bowel tones. No roberson catheter as pt is anuric. Hemodialysis patient with permacath to right chest wall.
--- NOTE | 2019-12-14 09:45 | NUR ---
Dr Barney in to see pt. Discussed pt's wean this morning. Discussed that patient has been off sedation since 0500. Discussed that pt had 125 mL residual despite tube feeds being held. No new orders at this time. Plan to continue holding tube feeds. Plan to continue holding sedation.
--- NOTE | 2019-12-14 10:21 | NUR ---
Care Connector notified that pt had high residuals. Notified that tube feeds and liquacel held.
--- NOTE | 2019-12-14 11:55 | NUR ---
Spiritual care visit conducted. Patient is lying in bed and is pulling at restraints and has a furrowed brow. Patient's daughter Perlita from [place] is bedside and stroking patient's head and speaking softly to him. Perlita tells me stories of her dad and his marjan. She asks me to provide prayer. I gladly say a prayer. Patient shows little or no response to me speaking to him and providing prayer. Patient then starts coughing and pulling on the restraints again and patient's RN Paloma brings in a pain medication to help him stop a very long coughing spell. I then talk with Perlita at length about the direction they want to go with the medical decisions and the end result is that because patient has rallied so many times that they will keep full care/code in place unless there is something that would clearly suggest otherwise. I will continue to remain available to patient and family.
--- NOTE | 2019-12-14 12:00 | NUR ---
Dr Lynch in to see patient. No new orders at this time. Remains on 21 mcg/min levophed at this time. Sedation remains off.
--- NOTE | 2019-12-14 13:37 | NUR ---
Pt's daughter states that pt has tendency to get pressure sores on his heels. Heel mepilex applied. Foam heel protecters applied. MAP 80. Levophed titrated down to 20 mcg/min.
--- NOTE | 2019-12-14 14:00 | NUR ---
Dr Barney stated to restart propofol at 10 mcg/kg/min because pt is having coughing fits that requires fentanyl pushes, and when pt is not coughing, peak pressures are mid-high 30s. Provider also stated for pt to be bladder scanned to ensure pt is not producing urine. Bladder scan showed 0 mL.
[2019-12-14 14:59] LABS: Vancomycin, Random 15.4 ug/mL
--- NOTE | 2019-12-14 18:09 | NUR ---
SUMMARY Pt sedated with 10 mcg/kg/min propofol. Reponsive to painful stimulus. Tolerating ventilator well. Ventilator settings AC 12/400/5/30%. Receiving 16 mcg/min levophed. Receiving vasopressin. OG tube clamped. Most recent residual measurered was [address] Barney, plan to give liquicel tonight and restart tube feed tomorrow. Pt anuric, routine hemodialysis patient. No BM this shift. Will continue to closely monitor until care handoff and bedside report with oncoming RN.
--- NOTE | 2019-12-14 19:11 | NUR ---
Dressings to bilateral arms changed.
--- NOTE | 2019-12-14 20:07 | NUR ---
ASSUMED CARE NOTE: ASSUMED CARE OF PT AT 1900, RECEVIED REPORT FROM MARISSA ALVARADO. PT IS VENTED WITH SETTINGS AT AC12/400/5/30%, SPO2 ABOVE 95%, RR 20'S, COARSE LUNG SOUNDS T/O. PT RESPONDS TO PAINFUL STIMULI. PT IS IN A-FLUTTER WITH HR AT 94 BPM. LEVOPHED CURRENTLY AT 17MCG/MIN, MAP ABOVE 65. PULSES ARE FAINT T/O. ARTLINE IN PLACE TO RIGHT FEMORAL SITE, DRIED OZZING TO SITE NOTED, DRESSING INTACT. PT IS WEEPING T/O. BOWEL TONES ARE HYPOACTIVE T/O. OGT CLAMPED AT THIS TIME. PT SEDATED WITH PROPOFOL AT 10MCG/KG/MIN. CVC CATHETER TO RIGHT CHEST WALL C/D/I.
--- NOTE | 2019-12-14 20:40 | NUR ---
RESIDUAL OF 350ML PER OGT, REINSTILLED 250ML, WILL RECHECK, ORAL MEDS HELD AT THIS TIME.
[2019-12-15 04:05] LABS: BASOPHILS ABSOLUTE AUTO 0.04 K/mm3 (0.00-0.23); BASOPHILS PERCENT AUTO 0 % (0-2); EOSINOPHILS ABSOLUTE AUTO 0.01 K/mm3 (0.00-0.68); EOSINOPHILS PERCENT AUTO 0 % (0-6); Hematocrit 41.8 % (37.0-53.0); Hemoglobin 13.3 g/dL (13.5-17.5); IMMATURE GRAN ABSOLUTE AUTO 0.18 K/mm3 (0.00-0.10); IMMATURE GRAN PERCENT AUTO 1 % (0-1); LYMPHOCYTES ABSOLUTE AUTO 0.65 K/mm3 (0.84-5.20); LYMPHOCYTES PERCENT AUTO 4 % (21-46); MONOCYTES ABSOLUTE AUTO 1.72 K/mm3 (0.16-1.47); MONOCYTES PERCENT AUTO 11 % (4-13); Mean Corpuscular HGB 30.2 pg (26.0-34.0); Mean Corpuscular HGB Conc 31.8 g/dL (31.5-36.5); Mean Corpuscular Volume 95 fL (80-100); Mean Platelet Volume 12.2 fL (9.1-12.4); NEUTROPHILS ABSOLUTE AUTO 13.82 K/mm3 (1.96-9.15); NEUTROPHILS PERCENT AUTO 84 % (41-73); NRBC ABSOLUTE 1.55 K/mm3 (0.00-0.02); NRBC Auto 9.4 /100 WBC (0.0-0.2); Platelet Count 90 K/mm3 (150-400); RDW Coefficient Variation 20.2 % (11.7-14.2); RDW Standard Deviation 66.5 fL (35.1-46.3); Red Blood Cell Count 4.41 M/mm3 (4.30-5.90); White Blood Cell Count 16.42 K/mm3 (4.00-11.30)
[2019-12-15 04:25] LABS: Albumin, Blood 2.8 g/dL (3.4-5.0); Anion Gap 12 mmol/L (6-16); Blood Urea Nitrogen 43 mg/dL (8-24); Bun/Creatinine Ratio 11.8 (12.0-20.0); CO2, Blood 27 mmol/L (21-32); Calcium, Blood 8.8 mg/dL (8.5-10.1); Chloride, Blood 91 mmol/L (98-108); Creatinine, Blood 3.64 mg/dL (0.60-1.20); Glomerular Filtration Rate 17 (60-); Glucose, Blood 265 mg/dL (70-99); Magnesium, Blood 2.2 mg/dL (1.6-2.4); Phosphorus, Blood 5.3 mg/dL (2.5-4.9); Potassium, Blood 4.5 mmol/L (3.5-5.5); Sodium, Blood 130 mmol/L (136-145)
--- NOTE | 2019-12-15 05:57 | NUR ---
SHIFT SUMMARY: NO SIGNIFICANT CHANGES. PT REMAINS ON VENT, WITH NO CHANGES TO SETTING. PT IS ON 10MCG/KG/MIN OF PROPOFOL. PT CONTINUES TO RESPOND TO PAINFUL STIMULI. PT HAS BEEN IN A-FLUTTER WITH HR CURRENTLY AT 93. PT ON LEVOPHED RUNNING AT 18MCG/MIN, MAP MAINTAINING ABOVE 65. OGT CLAMMPED, LAST RESIDUAL WAS 300, 250ML REINSTILLED. PT CONTINUES TO WEEP IN BUE AND ABDOMEN. ARTLINE DRESSING CHANGED THIS SHIFT BY CHARGE NURSE VIVIAN. PT REPOSITONED Q2HR TO PREVENT FURTHER SKIN BREAKDOWN. WILL CONTINUE TO MONITOR PT UNTIL REPORT IS GIVEN TO ONCOMING SHIFT.
--- NOTE | 2019-12-15 08:00 | NUR ---
ASSUMED CARE: REPORT RECEIVED FROM ZANA Croft RN. ASSUMED CARE OF THIS PT AT APPROX 0700. ON ASSESSMENT, THE PT IS SEDATED W/ LOW DOSE PROPOFOL & INTUBATED. HE WITHDRAWS ALL EXTREMITIES FROM PAINFUL STIMULUS & OPENS EYES MINIMALLY, SMALL AMNT OF SPONTANEOUS MOVEMENT TO BLE IS ALSO NOTED. LS ARE COARSE W/ CRACKLES ON L SIDE, DIM T/O ON R SIDE. VENT SETTINGS: AC 12/400/5/30% W/ O2 SATS > 95%. MONITOR SHOWS AFLUTTER W/ HR 90s. ARTERIAL LINE TO R FEMORAL IS WNL, DRESSING CDI. ART LINE BP READING CORRELATES WELL W/ NBP CHECK. OGT CLAMPED, PENDING REQUEST FOR CXR TO VERIFY PLACEMENT CHECK THIS AM R/T PT's LABILE & INCREASED RESIDUALS. PT IS OLIGURIC, VOIDING INFREQUENTLY R/T HEMODIALYSIS. SKIN IS OVERALL FRAGILE & ECCHYMOTIC. THE PT IS EDEMATOUS T/O BODY & WEEPING. ARMS HAVE BEEN DRESSED & DRYFLO PADS PLACED UNDER EXTREMITIES TO PREVENT SOILING OF BED R/T WEEPING. BILAT SOFT WRIST RESTRAINTS IN PLACE TO PREVENT SELF-EXTUBATION. WILL CONTINUE TO MONITOR & UPDATE NEEDED.
--- NOTE | 2019-12-15 10:05 | NUR ---
DR PYLE: PROVIDER AT BEDSIDE TO LANDY PT. HE HAS DISCUSSED POC W/ PT's SPOUSE, KALA, WHO IS AT BEDSIDE THIS AM. HE WOULD LIKE THE PT TO BE TRANSITIONED OFF OF PROPOFOL & FOR PRECEDEX TO BE USED INSTEAD. DISCUSSED CONCERN REGARDING PLACEMENT OF OGT & CXR HAS BEEN ORDERED TO CONFIRM PLACEMENT BEFORE ANY PT MEDS TO BE GIVEN. HE WOULD LIKE THE PT TO BE STARTED ON LACTULOSE UNTIL BMs OCCUR. AT WHICH POINT THE LACTULOSE MAY BE D/C'd & TUBE FEED RESTART WILL BE ADDRESSED. CALL FROM PHARMACIST, DARSHAN Anderson, AFTER PRECEDEX HAS BEEN ORDERED. THE PT HAS AN ALLERGY LISTED A SAME-CLASS EYE DROP W/ "FACIAL SWELLING" NOTED REACTION. THIS HAS BEEN DISCUSSED W/ THE PT's & SHE STS THAT THE PT's ONLY REACTIONS TO THESE EYE DROPS HAVE BEEN LOCALIZED TO THE EYES & NEVER INCLUDED "FACIAL SWELLING." SHE STS THAT HE GETS DARK CIRCLES UNDER HIS EYES & THAT THEY BECOME "PUFFY & WATERY," BUT THAT HE HAS NEVER EXPERIENCED SWELLING OR SOB. DR PYLE & PT's AGREE TO TRIAL PRECEDEX & PHARMACY HAS BEEN NOTIFIED OF THIS.
--- NOTE | 2019-12-15 10:07 | NUR ---
Pt resting in bed and is intubated. No S/S of distress at this time. Spouse Marleny at bedside. Engaged in therapeutic listening as Marleny expresses frustrations regarding visitor policy. Continued therapeutic listening and answered questions. Marleny states her 2 daughters were allowed to visit yesterday and today vistors are restricted to one person. She states "I'm taking this as a sign that he is doing better". Continued therapeutic listening. Marleny expresses appreciation of visit. Spoke with Bedside RN Ladi and discussed case prior to visiting with Pt and spouse. Palliative Care will remain available.
--- NOTE | 2019-12-15 10:55 | NUR ---
DR LAWRENCE: PROVIDER AT BEDSIDE. PLAN IS FOR EXTENDED TIME DIALYSIS TODAY. LISA Culp, LANGUAGE TUTOR, HAS CALLED TO SAY THAT SHE WILL BE IN THE UNIT TO DIALYZE THE PT DURING THE EARLY AFTERNOON.
--- NOTE | 2019-12-15 11:40 | NUR ---
DR VANEGAS: PROVIDER AT BEDSIDE TO EVAL PT. NO CHANGES TO CURRENT POC, CONTINUE PER DRAWING HAND.
--- NOTE | 2019-12-15 13:00 | NUR ---
UPDATE: OGT CORRECT PLACEMENT HAS BEEN VERIFIED BY DR PYLE & IS OKAY TO USE FOR GRANTS ASSISTANT.
--- NOTE | 2019-12-15 18:48 | NUR ---
SHIFT SUMMARY: NO ACUTE CHANGES SINCE PRIOR UPDATES. PT REMAINS SEDATED W/ PRECEDEX & INTUBATED. VENT SETTINGS UNCHANGED & PT TOLERATING WELL W/ O2 SATS > 95%. MONITOR SHOWS AFLUTTER W/ HR 90s, BP STABLE W/ LEVOPHED TITRATION NOTED IN FLOWSHEET. PT CONTINUES HAVING NO BM THIS SHIFT DESPITE LACTULOSE PER EMAR. PT HAS VOIDED NO URINE THIS SHIFT, SCROTUM REMAINS SEVERELY SWOLLEN. SKIN OVERALL FRAGILE, EDEMATOUS & WEEPING. DRESSINGS TO BILAT FOREARMS AGAIN CHANGED THIS EVENING AFTER BECOMING SATURATED. WILL CONTINUE TO MONITOR & REPORT OFF TO ONCOMING RN.
--- NOTE | 2019-12-15 19:00 | NUR ---
ASSUMED CARE NOTE: ASSUMED CARE OF PT AT 1900, RECEVIED REPORT FROM JOHANNA ALVARADO. PT CONTINUES TO BE ON VENT WITH SETTINGS AC12/400/5/30%, SPO2 ABOVE 90% PT IS BEING SEDATED WITH 0.2MCG/KG/HR OF PRECEDEX. PT NOT OPENING EYES OR MAKING ANY MOVEMENTS. OGT CLAMPED. PT IS IN A-FLUTTER WITH HR IN THE 90'S. LEVOPHED AT 20MCG/KG/MIN, BP STABLE. PT IS WEEPING T/O, BACK IS STAURATED, PT IS WEEPING THROUGH EVERY PUNCTURE SITE, WILL CHANGED BEDDING AND DRESSINGS. BED AT LOWEST LEVEL. WILL CONTINUE TO MONITOR PT T/O SHIFT.
--- NOTE | 2019-12-15 22:51 | NUR ---
UPDATE: DURING TURN PT HAD A LARGE AMOUNT OF GASTRIC CONTENT COME OUT AROUND ETT. OGT WAS THEN PLACE TO LIS, 1000ML OUTPUT WITHIN 15 MINTUES. ABSENT BOWEL TONES T/O. PT IS WEEPING T/O , WOUND DRESSINGS CHANGED. DRY FLOWS PLACED TO BACK TO PROTECT SKIN FROM FURTHER BREAKOUT. PT OZZING FROM EVERY PUNCTURE SITE. ARTLINE DRESSING CHANGED, DUE TO IT BEING SATURATED.
--- NOTE | 2019-12-16 00:23 | NUR ---
UPDATED ON EMESIS, ORDERS FOR REGLAN GIVEN
[2019-12-16 03:35] LABS: BASOPHILS ABSOLUTE AUTO 0.04 K/mm3 (0.00-0.23); BASOPHILS PERCENT AUTO 0 % (0-2); EOSINOPHILS PERCENT AUTO 0 % (0-6); Hematocrit 39.8 % (37.0-53.0); Hemoglobin 13.1 g/dL (13.5-17.5); IMMATURE GRAN ABSOLUTE AUTO 0.24 K/mm3 (0.00-0.10); IMMATURE GRAN PERCENT AUTO 2 % (0-1); LYMPHOCYTES ABSOLUTE AUTO 0.46 K/mm3 (0.84-5.20); LYMPHOCYTES PERCENT AUTO 3 % (21-46); MONOCYTES ABSOLUTE AUTO 1.83 K/mm3 (0.16-1.47); MONOCYTES PERCENT AUTO 13 % (4-13); Mean Corpuscular HGB 31.1 pg (26.0-34.0); Mean Corpuscular HGB Conc 32.9 g/dL (31.5-36.5); Mean Corpuscular Volume 95 fL (80-100); Mean Platelet Volume 12.4 fL (9.1-12.4); NEUTROPHILS ABSOLUTE AUTO 11.82 K/mm3 (1.96-9.15); NEUTROPHILS PERCENT AUTO 82 % (41-73); NRBC ABSOLUTE 4.13 K/mm3 (0.00-0.02); NRBC Auto 28.7 /100 WBC (0.0-0.2); Platelet Count 98 K/mm3 (150-400); RDW Coefficient Variation 19.7 % (11.7-14.2); Red Blood Cell Count 4.21 M/mm3 (4.30-5.90); White Blood Cell Count 14.39 K/mm3 (4.00-11.30)
--- NOTE | 2019-12-16 03:40 | NUR ---
UPDATE: PRECEDEX TURNED OFF, RESTRAINTS DC'd DUE TO PT NOT MOVING AND NOT RESPONDING TO PAINFUL STIMULI. WILL REASSESS
[2019-12-16 03:49] LABS: Bun/Creatinine Ratio 11.7 (12.0-20.0); Calcium, Blood 9.3 mg/dL (8.5-10.1); Creatinine, Blood 3.67 mg/dL (0.60-1.20); Potassium, Blood 4.6 mmol/L (3.5-5.5)
--- NOTE | 2019-12-16 06:21 | NUR ---
SHIFT SUMMARY: SEE PREVIOUS NOTES. PT REMAINS ON VENT WITH NO CHANGES TO SETTINGS. NO GAG REFLEX PRESENT, PT DOES NOT RESPOND TO ANY PAINFUL OR VERBAL STIMULI. PT HAS BEEN OUT OF BILAT SOFT WRIST RESTRAINTS SINCE 339, PRECEDEX HAS BEEN OFF AT THIS TIME WELL. PT HAS BEEN IN A-FLUTTER WITH HR IN THE 90'S. LEVOPHED CURRENTLY AT 20MCG/KG/MIN, MAP MAINTAINING ABOVE 65. PT DOES NOT TOLERATE BEING OFF OF LEVOPHED FOR BLOOD DRAWS, SBP DROPS INTO THE LOW 70'S, DBP IN THE 40'S, MAP IN THE 50'S. OGT TO LIS, 1000ML OUTPUT THIS SHIFT. WILL CONTINUE TO MONITOR PT UNTIL REPORT IS GIVEN TO ONCOMING NURSE.
--- NOTE | 2019-12-16 07:50 | NUR ---
ASSUMED CARE / DR PYLE: REPORT RECEIVED FROM ZANA Croft RN. ASSUMED CARE OF THIS PT AT APPROX 0700. ON ASSESSMENT, THE PT IS INTUBATED & RESTING QUIETLY. PER REPORT, SEDATION & RESTRAINTS HAVE BEEN OFF SINCE APPROX 0340 THIS AM. LS ARE DIM T/O, VENT SETTINGS UNCHANGED THROUGH THE NIGHT, AC 12/400/5/30%. O2 SATS > 95%. MONITOR SHOWS AFLUTTER W/ HR 90s, LEVOPHED & VASOPRESSIN IN USE FOR BP MANAGEMENT W/ TITRATIONS DOC IN FLOWSHEET. PT HAS HAD NO EPISODES OF EMESIS SINCE OGT TO LIS. IS NOT VOIDING URINE R/T HD. SKIN CONDITION OVERALL FRAGILE & DRESSINGS TO BILAT FOREARMS FOR COPIOUS AMNTS OF WEEPING EDEMA WILL BE CHANGED PRN. PROVIDER AT BEDSIDE TO EVAL PT. THE PT GRIMACES TO PAINFUL STIMULUS BUT IS NOT MOVING ANY EXTREMITIES OR WITHDRAWING FROM PAIN, DOES NOT OPEN EYES. CONTINUE W/O SEDATION TO ASSESS MENTATION, NO CHANGES AT THIS TIME. WILL CONTINUE TO MONITOR & UPDATE NEEDED.
--- NOTE | 2019-12-16 09:00 | NUR ---
DIALYSIS: LISA RX SPECIALIST, AT BEDSIDE TO COMPLETE SCHEDULED DIALYSIS TX.
[2019-12-16 13:28] LABS: Vancomycin, Random 15.2 ug/mL
--- NOTE | 2019-12-16 17:28 | NUR ---
SHIFT SUMMARY: NO ACUTE CHANGES SINCE PRIOR UPDATES. PT REMAINS INTUBATED W/ NO SEDATION IN USE. HE REMAINS UNRESTRAINED W/ NO SPONTANEOUS MOVEMENT OF EXTREMITIES NOTED, HE DOES GRIMACE TO PAINFUL STIMULUS. LS ARE DIM T/O, VENT SETTINGS UNCHANGED THIS SHIFT. MONITOR SHOWS AFLUTTER W/ HR 90s, LEVOPHED & VASOPRESSIN CONTINUE W/ TITRATION NOTED IN FLOWSHEET. PT CONTINUES W/ OGT TO LIS, NO BM THIS SHIFT. HE HAS NOT VOIDED URINE R/T HEMODIALYSIS. SKIN CONDITION REMAINS FRAGILE & ECCHYMOTIC W/ WEEPING EDEMA T/O. DRESSINGS TO BILAT FOREARMS HAVE BEEN CHANGED PRN THIS SHIFT. EDEMA IS OVERALL IMPROVING. WILL CONTINUE TO MONITOR & REPORT OFF TO ONCOMING RN.
--- NOTE | 2019-12-16 19:00 | NUR ---
ASSUMED CARE NOTE: ASSUMED CARE OF PT AT 1900, RECEVIED REPORT FROM JOHANNA ALVARADO. PT IS ON VENT WITH SETTINGS AT AC12/400/5/40%, SPO2 ABOVE 90% PT RESPONDING TO DEEP PAINFUL STIMULI BY GRIMICING. PT IS NOT MOVING ANY EXTREMITIES. OCCASSIONAL WILL SWALLOW. PT IS NOT ON ANY SEDATION. PT IS IN A-FLUTTER WITH HR IN THE 90'S. OGT TO LIS, BROWN CLEAR DRAINAGE NOTED. ARTLINE ZEROED THIS SHIFT. LEVOPHED RUNNING AT 16MCG/KG/MIN. WILL CONTINUE TO MONITOR PT T/O SHIFT.
--- NOTE | 2019-12-17 03:08 | NUR ---
UPDATE: PT ABLE TO MOVE RIGHT ARM AND WITHDRAW FROM PAINFUL STIMULI TO THAT EXTEMITY. PT ABLE TO MOVE HEAD FROM SIDE TO SIDE, TO ANSWER "NO" TO PAIN. PT RELAXED AND CALM AT THIS TIME. DRESSINGS TO WOUNDS CHANGED. PT ON LEVOPHED AT 20MCG/MIN, MAP ABOVE 65, SPB 90, DBP 50'S.
[2019-12-17 04:17] LABS: BASOPHILS ABSOLUTE AUTO 0.04 K/mm3 (0.00-0.23); BASOPHILS PERCENT AUTO 0 % (0-2); EOSINOPHILS PERCENT AUTO 0 % (0-6); Hematocrit 41.1 % (37.0-53.0); Hemoglobin 13.4 g/dL (13.5-17.5); IMMATURE GRAN ABSOLUTE AUTO 0.23 K/mm3 (0.00-0.10); IMMATURE GRAN PERCENT AUTO 2 % (0-1); LYMPHOCYTES ABSOLUTE AUTO 0.38 K/mm3 (0.84-5.20); LYMPHOCYTES PERCENT AUTO 3 % (21-46); MONOCYTES ABSOLUTE AUTO 1.77 K/mm3 (0.16-1.47); MONOCYTES PERCENT AUTO 13 % (4-13); Mean Corpuscular HGB 31.4 pg (26.0-34.0); Mean Corpuscular HGB Conc 32.6 g/dL (31.5-36.5); Mean Corpuscular Volume 96 fL (80-100); Mean Platelet Volume 11.7 fL (9.1-12.4); NEUTROPHILS ABSOLUTE AUTO 10.84 K/mm3 (1.96-9.15); NEUTROPHILS PERCENT AUTO 82 % (41-73); NRBC ABSOLUTE 3.58 K/mm3 (0.00-0.02); Platelet Count 112 K/mm3 (150-400); RDW Coefficient Variation 19.9 % (11.7-14.2); RDW Standard Deviation 66.7 fL (35.1-46.3); Red Blood Cell Count 4.27 M/mm3 (4.30-5.90); White Blood Cell Count 13.26 K/mm3 (4.00-11.30)
[2019-12-17 04:43] LABS: Albumin, Blood 3.6 g/dL (3.4-5.0); Anion Gap 14 mmol/L (6-16); Blood Urea Nitrogen 44 mg/dL (8-24); Bun/Creatinine Ratio 12.6 (12.0-20.0); CO2, Blood 25 mmol/L (21-32); Calcium, Blood 9.1 mg/dL (8.5-10.1); Chloride, Blood 91 mmol/L (98-108); Creatinine, Blood 3.48 mg/dL (0.60-1.20); Glomerular Filtration Rate 18 (60-); Glucose, Blood 278 mg/dL (70-99); Magnesium, Blood 2.4 mg/dL (1.6-2.4); Potassium, Blood 4.5 mmol/L (3.5-5.5); Sodium, Blood 130 mmol/L (136-145)
--- NOTE | 2019-12-17 06:33 | NUR ---
SHIFT SUMMARY: PT CONTINUES TO BE ON VENT WITH NO CHANGES TO THE SETTINGS. PT OPENS EYES, WAS ABLE TO MOVE SOME EXTREMITIES. PT CONTINUES TO BE ON NO SEDATION. PT COUGH HAS BECOME STRONGER, GAG REFLEX PRESENT. PT IN A-FLUTTER WITH HR IN THE 90'S. LEVOPHED AT 18MCG/MIN, MAP ABOVE 65. OGT TO LIS, FEW TIMES REQUIRED MANUAL SUCTION DUE TO THICK CHUNKS BROWN DRAINAGE. MELINDA AT BEDSIDE TO SEE PATIENT. WILL CONTINUE TO MONITOR PT UNTIL REPORT IS GIVEN TO ONCOMING SHIFT.
--- NOTE | 2019-12-17 08:00 | NUR ---
ASSUMED CARE: REPORT RECEIVED FROM ZANA Croft RN. ASSUMED CARE OF THIS PT AT APPROX 0700. ON ASSESSMENT, THE PT IS INTUBATED & RESTING QUIETLY W/ NO SEDATION IN USE. HE IS OPENING HIS EYES SPONTANEOUSLY & HAS NODDED HIS HEAD "YES" IN RESPONSE TO TWO QUESTIONS THIS AM, ALTHOUGH RESPONSE IS QUITE DELAYED. HE IS MOVING HIS LUE & BLE, BUT NO MOVEMENT IS NOTED TO RUE AT THIS TIME. HE GRIMACES & WITHDRAWS FROM PAINFUL STIMULI. LS ARE DIM T/O, VENT SETTINGS UNCHANGED: AC 12/400/5/30% W/ O2 SATS > 95%. MONITOR SHOWS AFLUTTER W/ HR 90s. BP STABLE W/ VASOPRESSIN & LEVOPHED INFUSING, TITRATION DOC IN FLOWSHEET. ART LINE TO R FEMORAL W/ BP READINGS CHARTED. PT IS TO HAVE NO PER TUBE MEDS UNTIL GASTRIC MOTILITY IMPROVED. NO URINARY VOID R/T HEMODIALYSIS. SKIN CONDITION OVERALL FRAGILE, EDEMA IMPROVING. DRESSING CHANGES TO BILAT FOREARMS PRN. WILL CONTINUE TO MONITOR & UPDATE NEEDED.
--- NOTE | 2019-12-17 08:30 | NUR ---
DIALYSIS: GEETHA Morris PRODUCT ADVISOR, AT BEDSIDE TO COMPLETE TX.
--- NOTE | 2019-12-17 10:20 | NUR ---
DR RIVERA: PROVIDER IS AT BEDSIDE TO LANDY PT. HE HAS DISCUSSED POC W/ PT's & REQUESTED THAT BOTH DAUGHTERS, WELL THE , BE PRESENT FOR A FAMILY MEETING TOMORROW. HE WOULD LIKE TO DISCUSS PT's PROGNOSIS IF HE IS ABLE TO RECOVER FROM THIS & SUCCESSFULLY BE EXTUBATED. PANTERA Bazan, PRODUCT SAFETY PROFESSIONAL & ARIANNA Fletcher, CLINICAL COORDINATOR, HAVE BEEN MADE AWARE THAT 3 VISITORS WILL BE COMING IN TOMORROW AM FOR THIS MEETING. NO CHANGES TO CURRENT POC.
[2019-12-17 12:10] LABS: Vancomycin, Random 17.1 ug/mL
--- NOTE | 2019-12-17 12:43 | NUR ---
DR ISRAEL: PROVIDER AT BEDSIDE TO EVAL PT. SHE ATTEMPTS SPONTANEOUS MODE ON VENTILATOR W/ PS OF 5, THEN INCREASED PS TO 8. PT HAS ADEQUATE RR OF 18-22 BUT IS ONLY PULLING TVs OF 200-280 DURING THIS TIME. PT PLACED BACK ON AC W/ PRIOR SETTINGS OF 12/400/5/30%. SHE STS THAT IF PT's MENTATION DOES NOT CONTINUE IMPROVING, HEAD CT MAY BE COMPLETED TOMORROW. CONTINUE TO TITRATE PRESSORS TO EFFECT.
--- NOTE | 2019-12-17 15:22 | NUR ---
Spiritual care visit conducted. Patient is sitting up in bed and non-responsive to voice or touch. Patient's spouse, Marleny is bedside and she tells me how patient is progressing (very minimal improvement). Marleny shares about how the family and her are handling patient's condition and prognosis and about what their feelings are about medical decsions moving forward. Marleny informs me that the family and patient's doctor will be meeting tomorrow and that they will make decisions after they have a bit more direction from the doctor. I talk with patient but no response and Marleny asks me to say a prayer for him which I gladly provide. Marleny is tearful during the prayer but thanks me and states that the prayer means a lot to her and to patient. I will continue to support family as they attempt to navigate through the ever challenging medical landscape.
--- NOTE | 2019-12-17 16:09 | NUR ---
UPDATE: PT HAS BEEN GIVEN BOWEL CARE MEDS PER DR ISRAEL ORDERS. THIS RN HAS ENSURED THAT OGT IS NOT CLOGGED & HAS BEEN DRAINING APPROPRIATELY PRIOR TO ADMIN. HE HAS TOLERATED HEDDLE MACHINE OPERATOR WELL. OGT CLAMPED AT 1600 AFTER HEDDLE MACHINE OPERATOR, WILL UNCLAMP IN APPROX 1 HR.
--- NOTE | 2019-12-17 16:43 | NUR ---
SHIFT SUMMARY: NO ACUTE CHANGES SINCE PRIOR UPDATES. PT REMAINS INTUBATED & IS ON NO SEDATION. HE IS RESPONDING TO SOME QUESTIONS & FOLLOWING COMMANDS INTERMITTENTLY WELL. SPONTANEOUS MOVEMENT HAS NOW BEEN NOTED IN ALL EXTREMITIES ALTHOUGH THE MOVEMENTS ARE VERY WEAK & MINIMAL. RESTRAINTS REMAIN OFF. VENT SETTINGS UNCHANGED: AC 12/400/5/30% W/ O2 SATS > 95%. MONITOR SHOWS AFLUTTER W/ HR 90s, VASOPRESSIN REMAINS ON & LEVOPHED DRIP HAS BEEN TITRATED DOWN TO 10 MCG/MIN, BP STABLE W/ THIS INTERVENTION. OGT NOW UNCLAMPED & LIS HAS BEEN RESUMED. PT HAS NO URINARY VOID THIS SHIFT R/T HEMODIALYSIS. SKIN CONDITION IS FRAGILE, EDEMA CONTINUES IMPROVING. DRESSINGS CHANGED PRN. WILL CONTINUE TO MONITOR & REPORT OFF TO ONCOMING RN.
--- NOTE | 2019-12-17 17:46 | NUR ---
will continue to meet with for supportive visits. Will see tomorrow haw he looks and discuss potential suffering not prognosis and that is her concern.
--- NOTE | 2019-12-17 18:36 | NUR ---
DR RIVERA / FAMILY MEETING: PROVIDER HAS BEEN IN UNIT THIS EVENING, UPDATED HIM THAT PT's & TWO DAUGHTERS WILL BE PRESENT IN ROOM TOMORROW AM FOR FAMILY MEETING TO TAKE PLACE.
--- NOTE | 2019-12-17 19:00 | NUR ---
ASSUMED CARE NOTE: ASSUMED CARE OF PT AT 1900, RECEVIED REPORT FROM JOHANNA ALVARADO. PT ON VENT WITH SETTINGS AT AC12/400/5/30%. PT HAS EYES OPEN, WITHDRAWS FROM PAINFUL STIMULI, MILLARD, WEAK T/O. PT ON NO SEDATION. PT IS IN A-FLUTTER WITH HR IN THE 90'S. PT ON 10MCG/MIN OF LEVOPHED. BP SOFT, MAP ABOVE 65 AT THIS TIME, WILL TITRATE LEVOPHED TO MAINTAIN MAP ABOVE 65. OGT TO LIS, PER REPORT OKAY TO GIVEN MEDS PT. WILL CONTINUE TO MONITOR PT T/O SHIFT.
[2019-12-18 04:38] LABS: BASOPHILS ABSOLUTE AUTO 0.03 K/mm3 (0.00-0.23); BASOPHILS PERCENT AUTO 0 % (0-2); EOSINOPHILS PERCENT AUTO 0 % (0-6); Hemoglobin 12.8 g/dL (13.5-17.5); IMMATURE GRAN ABSOLUTE AUTO 0.29 K/mm3 (0.00-0.10); IMMATURE GRAN PERCENT AUTO 2 % (0-1); LYMPHOCYTES ABSOLUTE AUTO 0.45 K/mm3 (0.84-5.20); LYMPHOCYTES PERCENT AUTO 3 % (21-46); MONOCYTES ABSOLUTE AUTO 1.93 K/mm3 (0.16-1.47); MONOCYTES PERCENT AUTO 14 % (4-13); Mean Corpuscular HGB 30.9 pg (26.0-34.0); Mean Corpuscular Volume 97 fL (80-100); Mean Platelet Volume 11.4 fL (9.1-12.4); NEUTROPHILS ABSOLUTE AUTO 11.36 K/mm3 (1.96-9.15); NEUTROPHILS PERCENT AUTO 81 % (41-73); NRBC ABSOLUTE 2.89 K/mm3 (0.00-0.02); NRBC Auto 20.6 /100 WBC (0.0-0.2); Platelet Count 99 K/mm3 (150-400); RDW Coefficient Variation 20.1 % (11.7-14.2); RDW Standard Deviation 66.4 fL (35.1-46.3); Red Blood Cell Count 4.14 M/mm3 (4.30-5.90); White Blood Cell Count 14.06 K/mm3 (4.00-11.30)
[2019-12-18 04:52] LABS: Albumin, Blood 3.6 g/dL (3.4-5.0); Anion Gap 13 mmol/L (6-16); Blood Urea Nitrogen 48 mg/dL (8-24); Bun/Creatinine Ratio 13.8 (12.0-20.0); CO2, Blood 27 mmol/L (21-32); Calcium, Blood 9.1 mg/dL (8.5-10.1); Chloride, Blood 94 mmol/L (98-108); Creatinine, Blood 3.49 mg/dL (0.60-1.20); Glomerular Filtration Rate 18 (60-); Glucose, Blood 249 mg/dL (70-99); Magnesium, Blood 2.3 mg/dL (1.6-2.4); Potassium, Blood 3.9 mmol/L (3.5-5.5); Sodium, Blood 134 mmol/L (136-145)
--- NOTE | 2019-12-18 06:28 | NUR ---
SHIFT SUMMARY: NO SIGNIFICANT CHANGES. PT CONTINUES TO BE VENTED, NO CHANGES TO THE SETTINGS. PT HAS BEEN HAVING SMALL AMOUNTS OF THICK YELLOW SECRETIONS VIA ETT. PT HAS BEEN IN AFLUTTER WITH HR IN THE 90'S. PT CONTINUES TO BE ON LEVOPHED CURRENTLY AT 8MCG/MIN. PT CONTINUES TO BE ABLE TO MOVE ALL EXTREMITES, VERY WEAK. OGT TO LIS, 50ML OUTPUT THIS SHIFT. PT WOUND DRESSING CHANGED THIS SHIFT, WELL ARTLINE DRESSING. PT CONTINUES TO WEEP T/O.
--- NOTE | 2019-12-18 07:30 | NUR ---
Received report from Mena ALVARADO. Patient is resing on no sedation and intubated. He has 8.0 ET and 23 cm at gums with vent settings of AC 12, TV 400, FiO2 30% and PEEP 5.0 and sats 98 %. He is oliguric and has no urine output. He has been started on some bowel meds to help him have BM. He has PICC to JIGNA dressing intact and site WNL's and is infusing Levophed at 8 mcg/min and Vasopressin at 0.04 units/min fo r MAP's >65. He has OG in place and is clamped for meds as he did not tolerate TF's. He moved extremities but not always purposeful. Family at bedside.
--- NOTE | 2019-12-18 09:26 | NUR ---
He tolerated IV and PO meds through OG. Dialysis started at 0830. Family at bedside awaiting meeting with Dr George. VSS, See EMR. No gtt or vent changes.
[2019-12-18 11:16] LABS: Vancomycin, Random 16.6 ug/mL
--- NOTE | 2019-12-18 13:42 | NUR ---
Spiritual care visit conducted. Patient is sitting up today and is able to open his eyes some. Patient's spouse, Marlney and two daughter's Sola and Ina are present. We talk about the decisions they need to make and their struggle to "let the patient go." They talk about wanting the patient to give them a clear sign as to whether he is done fighting or not. I talk with them about what his body is saying and about the quality of life he has now and will face in the future. Patient's family also request prayer, which I gladly provide. I will continue to offer spiritual care and support and help family to feel peace about the decisions they already know might be needed in this case.
--- NOTE | 2019-12-18 14:38 | NUR ---
Family at bedside speaking with pt. burgos over prognosis and decisional process. facilitated some decison makeing and supportive visit with . She states he wi expressing wanting to go they wnt more time with him to comfirm. stating he usually is a little more alert after dailysis. we briefly discussed partof decision based on exptroianry suffering not proganosis and repecting their marage and commitment to dailysis. Seh is understanding of the a decline in effectivness and of their suffering and feels they will probably let go this time.
--- NOTE | 2019-12-18 15:10 | NUR ---
Patient resting quietly without sedation. Family at bedside making life plans. Levophed remains at 8 mcg/min and vasopressin 0.04 units/min. No vent setting changes.
--- NOTE | 2019-12-18 18:18 | NUR ---
Repositioned patient. Changed lines on gtt's. VSS, See EMR. Family remains at bedside. Levophed remains at 8mcg/min and Vasopressin at 0.04 units/min. Patient opens eyes occassionally but no purposeful movement. Remains olguric and no urine to day. Artline slightly oozing , but still intact with systolics 90-100 and MAP's >65.
--- NOTE | 2019-12-18 23:43 | NUR ---
CARE ASSUMED 1900 PT INTUBATED. FAMILY AT BEDSIDE DURING START OF SHIFT. AC 12/400/5/25%, SPO2 >92%. VASOPRESSIN AT 0.04 UNITS/MIN AND LEVOPHED AT 8 MCG/MIN, MAP > 60. PT HAS ART LINE IN RIGHT FEMORAL. PICC LINE TO JIGNA. PT CURRENTLY NOT IN RESTRAINTS. OPENS EYES OCCASIONALLY BUT UNABLE TO FOLLOW DIRECTIONS. LOWER EXTREM PULSES OBTAINED USING DOPPLER. OG TUBE IN PLACE TO LIS.
[2019-12-19 04:58] LABS: BASOPHILS ABSOLUTE AUTO 0.04 K/mm3 (0.00-0.23); BASOPHILS PERCENT AUTO 0 % (0-2); EOSINOPHILS ABSOLUTE AUTO 0.02 K/mm3 (0.00-0.68); EOSINOPHILS PERCENT AUTO 0 % (0-6); Hematocrit 41.8 % (37.0-53.0); Hemoglobin 13.3 g/dL (13.5-17.5); IMMATURE GRAN ABSOLUTE AUTO 0.46 K/mm3 (0.00-0.10); IMMATURE GRAN PERCENT AUTO 3 % (0-1); LYMPHOCYTES ABSOLUTE AUTO 0.45 K/mm3 (0.84-5.20); LYMPHOCYTES PERCENT AUTO 3 % (21-46); MONOCYTES ABSOLUTE AUTO 1.62 K/mm3 (0.16-1.47); MONOCYTES PERCENT AUTO 10 % (4-13); Mean Corpuscular HGB 31.1 pg (26.0-34.0); Mean Corpuscular HGB Conc 31.8 g/dL (31.5-36.5); Mean Corpuscular Volume 98 fL (80-100); Mean Platelet Volume 11.8 fL (9.1-12.4); NEUTROPHILS ABSOLUTE AUTO 13.74 K/mm3 (1.96-9.15); NEUTROPHILS PERCENT AUTO 84 % (41-73); NRBC ABSOLUTE 2.65 K/mm3 (0.00-0.02); NRBC Auto 16.2 /100 WBC (0.0-0.2); Platelet Count 128 K/mm3 (150-400); RDW Coefficient Variation 20.5 % (11.7-14.2); RDW Standard Deviation 65.7 fL (35.1-46.3); Red Blood Cell Count 4.28 M/mm3 (4.30-5.90); White Blood Cell Count 16.33 K/mm3 (4.00-11.30)
[2019-12-19 05:16] LABS: Albumin, Blood 3.2 g/dL (3.4-5.0); Anion Gap 16 mmol/L (6-16); Blood Urea Nitrogen 51 mg/dL (8-24); Bun/Creatinine Ratio 14.8 (12.0-20.0); CO2, Blood 24 mmol/L (21-32); Chloride, Blood 97 mmol/L (98-108); Creatinine, Blood 3.45 mg/dL (0.60-1.20); Glomerular Filtration Rate 18 (60-); Glucose, Blood 240 mg/dL (70-99); Magnesium, Blood 2.3 mg/dL (1.6-2.4); Phosphorus, Blood 4.8 mg/dL (2.5-4.9); Potassium, Blood 3.5 mmol/L (3.5-5.5); Sodium, Blood 137 mmol/L (136-145)
--- NOTE | 2019-12-19 06:27 | NUR ---
SHIFT SUMMARY PT INTUBATED, REMAINS OFF SEDATION AND RESTRAINTS. VENT SETTINGS AC 12/400/5/25%, SPO2 > 95%. LEVOPHED AT 12 MCG/MIN AND VASOPRESSIN 0.04 UNITS/MIN, MAP > 60 T/O SHIFT. PT HAD INCREASED TEMP OF 102, TREATED WITH TYLENOL, ICE PACKS, AND FAN. HAD GOOD EFFECT, TEMP DECREASED TO 101.3. ART LINE IN PLACE. PICC TO LUE. PT HAD BM DURING SHIFT. DURING MIDNIGHT ASSESSMENT PT ABLE TO NOD YES/NO FOR PAIN AND ANSWER SIMPLE QUESTIONS BUT STILL UNABLE TO MOVE EXTREMS. VSS. WILL REPORT TO ONCOMING SHIFT.
--- NOTE | 2019-12-19 09:30 | NUR ---
No significant changes with patient. at bedside reading to him. decreased Levophed to 10 mcg/min and MAP's >65 currently. Vasopressin continues. No neuro changes from earlier note.
--- NOTE | 2019-12-19 13:00 | NUR ---
Pt resting in bed and is intubated. Met with spouse Marleny out in [place] and engaged in therapeutic listening. Marleny tearful at times and offered emotional support. Marleny reports plan to withdraw care tomorrow moring. She is currently working on arrangements. Continued therapeutic listening and validated concerns. Marleny reports plan for Pt's radio news writer to come in before withdrawing care. Marleny expresses appreciation of conversation and reports no other concerns at this time. Palliative Care will remain available.
--- NOTE | 2019-12-19 13:09 | NUR ---
Patient resting with family at bedisde. No neuro changes. Stopped Vasopressin and levophed at 12 mcg/min with systolics 90-100's and MAPS >65. No vent setting changes.
--- NOTE | 2019-12-19 16:02 | NUR ---
Spiritual care visit conducted. Marleny is bedside with patient and in tears. We talk a bit about the with drawal of life support that is planned for tomorrow and how difficult that is for her and the family. I provide prayer, emtional support and therapeutic listening and remind her that I will be available tomorrow when that extubation is about to occur.
--- NOTE | 2019-12-19 17:23 | NUR ---
Changed PICC line and ART line dressings. Had to restart Vasopressin and Levophed at 14 mcg/min for systolic 70-80 and MAP's <65, currently 114/62 and MAP 86. Family remains at bedside and plan for family in am to pull ET and let go to comfort measure.
--- NOTE | 2019-12-19 19:00 | NUR ---
ASSUMED CARE NOTE: ASSUMED CARE OF PT AT 1900, RECEVIED REPORT FROM MALU ALVARADO. PT IS VENTED WITH SETTINGS AC12/400/5/25%, SPO2 94% PT OPENS EYES TO VERBAL STIMULI, RESPONDS TO PAINFUL STIMULI. NO SEDATION ON BOARD. PT IS IN AFLUTTER WITH HR IN THE 90'S. PT REQUIRING LEVOPHED AT 12MCG/MIN TO MAINTAIN MAP ABOVE 65. ARTLINE ZEROED. BED BATH COMPLETE, WOUND DRESSINGS CHANGED.
[2019-12-20 03:41] LABS: Hematocrit 41.2 % (37.0-53.0); Hemoglobin 13.1 g/dL (13.5-17.5)
[2019-12-20 04:06] LABS: Anion Gap 14 mmol/L (6-16); Blood Urea Nitrogen 62 mg/dL (8-24); Bun/Creatinine Ratio 15.5 (12.0-20.0); CO2, Blood 25 mmol/L (21-32); Calcium, Blood 9.2 mg/dL (8.5-10.1); Chloride, Blood 99 mmol/L (98-108); Creatinine, Blood 3.99 mg/dL (0.60-1.20); Glomerular Filtration Rate 15 (60-); Glucose, Blood 219 mg/dL (70-99); Magnesium, Blood 2.3 mg/dL (1.6-2.4); Phosphorus, Blood 5.2 mg/dL (2.5-4.9); Potassium, Blood 3.6 mmol/L (3.5-5.5); Sodium, Blood 138 mmol/L (136-145)
--- NOTE | 2019-12-20 06:12 | NUR ---
SHIFT SUMMARY: NO SIGNIFICANT CHANGES. PT CONTINUES TO BE ON SAME VENT SETTINGS. PT CONTINUES TO RESPOND TO VERBAL AND PAINFUL STIMULI. LEVOPHED TITRATED DOWN TO 6MCG/MIN, VASOPRESSIN 0.04UNITS/MIN. BP STABLE, MAP ABOVE 65. PT IN A FLUTTER WITH HR IN THE 80'S. OGT CLMAPED. NO BM THIS SHIFT. NO URINE OUTPUT , PT IS HD PATIENT. PT REPOSITIONED Q2HRS. WOUND DRESSINGS CHANGED THIS SHIFT. PT CONTINUES TO WEEP T/O. WILL CONTINUE TO MONITOR PT UNTIL REPORT IS GIVEN TO ONCOMING SHIFT.
--- NOTE | 2019-12-20 09:22 | NUR ---
COMFORT CARE PT'S LETTERPRESS PRINTING MACHINIST ARRIVED A LITTLE AFTER 7 THIS MORNING THEN FAMILY MADE THE REQUEST TO EXTUBATE PT AND SWITCH TO COMFORT CARE. DR. ISRAEL NOTIFIED AND GAVE OK TO EXTUBATE AND PLACED COMFORT CARE ORDERS. PT MEDICATED WITH ORAL MORPHINE AND ATROPINE DROPS PRIOR TO EXTUBATION TO ASSIST IN PT COMFORT. FAMILY EDUCATED ON EXPECTATION FOR EXTUBATION, THE DYING PROCESS, AND MEDICATIONS AVAILABLE TO HELP KEEP PT COMFORTABLE. RT NOTIFIED AND PT EXTUBATED AT 0845 WITH FAMILY AT THE BEDSIDE. PT APPEARED COMFORTABLE. FAMILY WANTED TO KEEP THE PRESSORS ON BRIEFLY TO SEE IF PT WOULD BE ABLE TO COMMUNICATE WITH THEM, WHICH PT WAS NOT ABLE TO DO. ABOUT 5 MINUTES POST EXTUBATION PT'S GAVE OK TO TURN OFF PRESSORS. PT STILL APPEARED COMFORTABLE, BREATHING EASILY WITH A SLIGHT SNORE, BROW RELAXED. PT'S HEARTBEAT STOPPED AT 0915, CONFIRMED WITH AUSCULTATION AND ARTERIAL LINE INDICATING NO PULSE. FAMILY INFORMED OF PT'S HEART STOPPING. PACEMAKER DID CONTINUE TO FIRE, MAGNET PLACED OVER PACER. FAMILY WITH PT STILL NOW, SUPPORT BEING PROVIDED NEEDED. HOME IN [place] NOTIFIED TO COORDINATE TRANSFER OF PT'S BODY.
--- NOTE | 2019-12-20 10:22 | NUR ---
Spiritual care visit conducted. Shortly after patient , I met with patient's family and find them to be grieving appropriately. They voice their gratitude for the love and care the patient and family received from spiritual care and entire staff. I provide grief support, therapeutic listening and prayer. Marleny and family respond well and show signs of being comforted.
--- NOTE | 2019-12-20 11:12 | NUR ---
Spoke with Bedside RN and discussed case. Plan if for terminal withdraw. Pt resting in bed with family and Pt's restorative rehab aide at bedside. Offered support to family as Pt is extubated. Continued supportive visit and offered emotional support. Family elected to have pressors continued for a short time to determine if Pt could talk. Left room to allow personal time to Pt. Pt appeared to tolerate extabuation. Spoke with Bedside RN later in the day. Pt shortly after D/C of pressors. Offered family condolences. Family expresses appreciation and report no concerns at this time. Family currently in process of arrangements. Palliative Care will remain available.
--- NOTE | 2019-12-20 13:13 | NUR ---
DISCHARGE HOME [place] THAT FAMILY WANTS PT TO GO TO ARRANGED TRANSPORT FOR PT AND [facility]KA [facility] [employer] PICKED PT UP AT 1255. PT'S STAYED AT BEDSIDE UNTIL PT DEPARTED.
== END 2019-12-20 09:15 | DRG 871 ==
LOC: ER 15:51 → ICUW 20:08 → ERHOLD 20:08 → ICUW 22:00
PROVIDERS: Emergency Medicine; Internal Medicine Critical Care Medicine; Internal Medicine Nephrology; Internal Medicine Pulmonary Disease; Pharmacist; ADMIT Internal Medicine
PROC: 0BH18EZ Insertion of Endotracheal Airway into Trachea, Via Natural or Artificial Opening Endoscopic (ICD-10-PCS; 2019-12-10)
PROC: 5A1945Z Respiratory Ventilation, 24-96 Consecutive Hours (ICD-10-PCS; 2019-12-10)
PROC: 02HV33Z Insertion of Infusion Device into Superior Vena Cava, Percutaneous Approach (ICD-10-PCS; principal; 2019-12-11)
PROC: 3E043XZ Introduction of Vasopressor into Central Vein, Percutaneous Approach (ICD-10-PCS; 2019-12-11)
PROC: 04HY32Z Insertion of Monitoring Device into Lower Artery, Percutaneous Approach (ICD-10-PCS; 2019-12-12)
PROC: 5A1D70Z Performance of Urinary Filtration, Intermittent, Less than 6 Hours Per Day (ICD-10-PCS; 2019-12-12)
PROC: 5A1D70Z Performance of Urinary Filtration, Intermittent, Less than 6 Hours Per Day (ICD-10-PCS; 2019-12-13)
PROC: 5A1D70Z Performance of Urinary Filtration, Intermittent, Less than 6 Hours Per Day (ICD-10-PCS; 2019-12-15)
PROC: 5A1D70Z Performance of Urinary Filtration, Intermittent, Less than 6 Hours Per Day (ICD-10-PCS; 2019-12-16)
PROC: 5A1D70Z Performance of Urinary Filtration, Intermittent, Less than 6 Hours Per Day (ICD-10-PCS; 2019-12-17)
PROC: 5A1D70Z Performance of Urinary Filtration, Intermittent, Less than 6 Hours Per Day (ICD-10-PCS; 2019-12-18)
DX: A41.9 Sepsis, unspecified organism (principal); N18.6 End stage renal disease; G92 Toxic encephalopathy; J96.22 Acute and chronic respiratory failure with hypercapnia; J96.21 Acute and chronic respiratory failure with hypoxia; R65.21 Severe sepsis with septic shock; I50.23 Acute on chronic systolic (congestive) heart failure; J18.9 Pneumonia, unspecified organism; N25.81 Secondary hyperparathyroidism of renal origin; E87.2 Acidosis; J44.0 Chronic obstructive pulmonary disease with (acute) lower respiratory infection; E87.1 Hypo-osmolality and hyponatremia; E66.2 Morbid (severe) obesity with alveolar hypoventilation; J44.1 Chronic obstructive pulmonary disease with (acute) exacerbation; I13.2 Hypertensive heart and chronic kidney disease with heart failure and with stage 5 chronic kidney disease, or end stage renal disease; Z66 Do not resuscitate; I25.5 Ischemic cardiomyopathy; Z20.828 Contact with and (suspected) exposure to other viral communicable diseases; E11.22 Type 2 diabetes mellitus with diabetic chronic kidney disease; Z79.4 Long term (current) use of insulin; Z79.82 Long term (current) use of aspirin; Z99.2 Dependence on renal dialysis; I48.0 Paroxysmal atrial fibrillation; Z90.2 Acquired absence of lung [part of]; Z95.0 Presence of cardiac pacemaker; Z87.891 Personal history of nicotine dependence; I25.2 Old myocardial infarction; I25.10 Atherosclerotic heart disease of native coronary artery without angina pectoris; N40.0 Benign prostatic hyperplasia without lower urinary tract symptoms; Z90.79 Acquired absence of other genital organ(s); Z85.118 Personal history of other malignant neoplasm of bronchus and lung; D69.6 Thrombocytopenia, unspecified; E88.09 Other disorders of plasma-protein metabolism, not elsewhere classified; Z99.81 Dependence on supplemental oxygen; E78.00 Pure hypercholesterolemia, unspecified; Z68.38 Body mass index [BMI] 38.0-38.9, adult; I27.20 Pulmonary hypertension, unspecified; I07.1 Rheumatic tricuspid insufficiency
CPT/HCPCS: 0202U; 31500; 31720; 36415; 36569; 36600; 36620; 70450; 71045; 71275; 74174; 80048; 80053; 80069; 80076; 80202; 82140; 82248; 82330; 82803; 82947; 83605; 83735; 83880; 84100; 84484; 85014; 85018; 85025; 85610; 86850; 86900; 86901; 87040; 87070; 87205; 93005; 93010; 93279; 93306; 94002; 94003; 94640; 94660; 94770; 96361-59; 96365-59; 99285-25; C1751; G0480; J0610; J0692; J0696; J1644; J1720; J1815; J2250; J2370; J2543; J2704; J2765; J2920; J3010; J3370; J3480; J7030; J7040; J7050; J7060; J7070; P9046; Q9967